=== PATIENT | male | born 1980 | race Caucasian/White ===

== ENCOUNTER 2021-07-09 14:08 | Emergency (ER) | payer OTHER, SELFPAY ==
--- NOTE | ~2021-07-09 | XR_ITS ---
EXAMINATION: XR hip LT 2V w AP pelvis INDICATION: Left hip pain after fall TECHNIQUE: AP view of the pelvis and two views of the left hip are obtained. COMPARISON: None available FINDINGS: There is no fracture. There is moderate osteoarthritis of the left hip and mild osteoarthri tis of the right hip. The soft tissues are unremarkable. IMPRESSION: 1. No acute osseous abnormality. Reviewed, dictated and finalized at location F. [employer] SUPERVISOR
[2021-07-09 14:27] VITALS: BP 142/85; PULSE 84; RESP 22; TEMP 36.7; O2SAT 97
--- NOTE | 2021-07-09 15:07 | ED.GENADULT ---
HPI - General Adult General Chief complaint: Extremity Injury, Lower Stated complaint: Fell Injury/Hip Time Seen by Provider: 07/09/21 14:50 Source: patient, family, RN notes reviewed and old records reviewed Mode of arrival: ambulatory Limitations: no limitations History of Present Illness HPI narrative: 40 year old male who presents to express care with complaints of falling down 4-5 wooden steps on the 02 of July falling onto his left forearm and left hip. Patient states that his hip seems to have crepitus in it. Patient states that he has seen AMERICA Estrella with Dr Crenshaw office and was told that he has osteoarthritis in his left hip and he has to lose more weight and quit smoking before they will fix my hip. 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 He states that he has taken Tylenol and Aleve today but nothing much helps. complaint: fell onto left hip and forearm on July 02 Onset (ago): day(s) (fell on July 02) Location: lower extremity (left hip) Radiation: non-radiation Severity scale (1-10): 6 Quality: aching Pain Consistency: constant Relieving factors: none Exacerbating factors: movement Treatments prior to arrival: NSAID Related Data Home Medications Medication Instructions Recorded Confirmed atorvastatin 10 mg PO DAILY 07/09/21 07/09/21 budesonide-formoterol [Symbicort] 2 puff INHALATION Q12H 07/09/21 07/09/21 fluoxetine 10 mg PO DAILY 07/09/21 07/09/21 fluticasone furoate-vilanterol 1 inh INHALATION Q24H 07/09/21 07/09/21 [Breo Ellipta] folic acid 1 mg PO DAILY 07/09/21 07/09/21 gabapentin 300 mg PO DAILY 07/09/21 07/09/21 losartan-hydrochlorothiazide 1 tablet PO DAILY 07/09/21 07/09/21 metformin 500 mg PO DAILY 07/09/21 07/09/21 quetiapine [Seroquel] 25 mg PO HS 07/09/21 07/09/21 sitagliptin [Januvia] 100 mg PO DAILY 07/09/21 07/09/21 topiramate 25 mg PO DAILY 07/09/21 07/09/21 tramadol 07/09/21 Allergies Allergy/AdvReac Type Severity Reaction Status Date / Time Penicillins Allergy Unknown Hives Verified 07/09/21 14:32 Review of Systems Review of Systems: CONSTITUTIONAL: Denies fever, chills, or sweats. EYES: Denies visual changes, redness, or discharge. ENT: Denies rhinorrhea, congestion, sore throat, or otalgia. CARDIOVASCULAR: Denies chest pain, palpitations, or edema. RESPIRATORY: Denies cough or dyspnea. GASTROINTESTINAL: Denies abdominal pain, nausea, vomiting, or diarrhea. GENITOURINARY: Denies dysuria or hematuria. SKIN: Denies rash or itching. MUSCULOSKELETAL: Denies back pain,left hip joint pain, or myalgia. NEUROLOGIC: Denies headache, numbness, or weakness. PSYCHIATRIC: Denies anxiety or depression. All systems reviewed & are unremarkable except as noted in HPI and below PMFSH Past Medical History Medical History (Updated 07/09/21 @ 19:59 by Noelle Rubi NP) COPD (chronic obstructive pulmonary disease) Diabetes Empyema lung Hyperlipidemia Hypertension Pneumonia Surgical History Surgical History (Updated 07/09/21 @ 19:57 by Noelle Rubi NP) H/O arthroscopy of knee History of chest tube placement empyema with chest tube Social History Social History (Updated 07/09/21 @ 19:57 by Noelle Rubi NP) Smoking packs per day: 0.5 Smoking cigarettes per day: 10.0 Smoking status: Current every day smoker Tobacco type: cigarettes Alcohol intake: unknown Substance use: unknown Living arrangements: with family Gender identity (if verbalized by the patient): Male Comments At time of signature, agree with nursing past medical, surgical, social and family history. There is no relevant family history pertinent to the presenting complaint Exam Narrative: GENERAL: Well-appearing, well-nourished,obese and in no acute distress. HEAD: Normocephalic, atraumatic. EYES: PERRLA and EOMI. ENT: Nares clear, no rhinorrhea or epistaxis. Mucous membranes moist.TM's good light reflex, th
--- NOTE | 2021-07-09 15:24 | ED.LOWEXIN ---
HPI - Extremity Injury (Lower) General Chief Complaint: Extremity Injury, Lower Stated Complaint: Fell Injury/Hip Time Seen by Provider: 07/09/21 14:50 Source: patient, family, RN notes reviewed and old records reviewed Mode of arrival: ambulatory Limitations: no limitations History of Present Illness HPI Narrative: 40 year old male accompanied by left hip pain MD complaint: hip injury Onset (ago): week(s) Injury: Left: hip Type of Injury: blunt Place: home Relieving factors: NSAID Related Data Home Medications Medication Instructions Recorded Confirmed atorvastatin 10 mg PO DAILY 07/09/21 07/09/21 budesonide-formoterol [Symbicort] 2 puff INHALATION Q12H 07/09/21 07/09/21 fluoxetine 10 mg PO DAILY 07/09/21 07/09/21 fluticasone furoate-vilanterol 1 inh INHALATION Q24H 07/09/21 07/09/21 [Breo Ellipta] folic acid 1 mg PO DAILY 07/09/21 07/09/21 gabapentin 300 mg PO DAILY 07/09/21 07/09/21 losartan-hydrochlorothiazide 1 tablet PO DAILY 07/09/21 07/09/21 metformin 500 mg PO DAILY 07/09/21 07/09/21 quetiapine [Seroquel] 25 mg PO HS 07/09/21 07/09/21 sitagliptin [Januvia] 100 mg PO DAILY 07/09/21 07/09/21 topiramate 25 mg PO DAILY 07/09/21 07/09/21 tramadol 07/09/21 Allergies Allergy/AdvReac Type Severity Reaction Status Date / Time Penicillins Allergy Unknown Hives Verified 07/09/21 14:32 Course Vital Signs Vital signs: Vital Signs Temperature 36.7 C 07/09/21 14:27 Pulse Rate 84 07/09/21 14:27 Respiratory Rate 22 H 07/09/21 14:27 Blood Pressure 142/85 H 07/09/21 14:27 Pulse Oximetry 97 07/09/21 14:27 Temperature 36.7 C 07/09/21 14:27 Pulse Rate 84 07/09/21 14:27 Respiratory Rate 22 H 07/09/21 14:27 Blood Pressure 142/85 H 07/09/21 14:27 Pulse Oximetry 97 07/09/21 14:27 MDM - Extremity Injury (Lower) Imaging Data Attestation: I personally reviewed and interpreted this imaging study as follows: Radiologist's impression: [facility] [address] [address], [place] [phone] XRay ReportSigned Patient: Moses Mtz RDOB: 1980MR#: [id number]/Sex: 40 / MAcct:[id number]: EXPBETH ADM Date: 07/09/21Attending Dr: Ordering Physician: Noelle Rubi APN Date of Service: 07/09/21 Procedure(s): XR hip LT 2V w AP pelvis Accession Number(s): [id number] cc: Noelle Rubi APN~ EXAMINATION: XR hip LT 2V w AP pelvis INDICATION: Left hip pain after fall TECHNIQUE: AP view of the pelvis and two views of the left hip are obtained. COMPARISON: None available FINDINGS: There is no fracture. There is moderate osteoarthritis of the left hip and mild osteoarthritis of the right hip. The soft tissues are unremarkable. IMPRESSION: 1. No acute osseous abnormality. Reviewed, dictated and finalized at location F. [employer]ANG[employer] SPECIALIST Dictated By: Yonathan Pratt MD 07/09/21 5309 Signed By: <Electronically signed by Yonathan Pratt MD in OV> Critical Care Time Critical Care Time Critical Care Time: No Discharge Plan Discharge Clinical Impression: Acute pain of left hip, Osteoarthritis of left hip Patient Disposition: Home, Self-Care Condition: Stable Additional Instructions: Tylenol for lesser pain Ibuprofen regularly for the next 2-3 days for the inflammation Use the medication as provided for severe pain--caution each tablet contains 325 mg of Tylenol--the maximum dose of Tylenol is 4000 mg in 24 hours. This medication may cause constipation consider starting a laxative at this time Follow-up with orthopedic surgeon as scheduled Stop smoking Lose weight as previously instructed Follow-up with PCP if further problems or concerns Ice to the area 20-30 minutes 4-6 times a day Elevate above heart If your symptoms persist, change or worsen significantly before you can contact your personal physician then please, without d
== END 2021-07-09 15:38 | disposition home or self-care (01) ==
PROVIDERS: Emergency Provider Registered Nurse
DX: M25.552 Pain in left hip (principal); M16.12 Unilateral primary osteoarthritis, left hip; F17.210 Nicotine dependence, cigarettes, uncomplicated; J44.9 Chronic obstructive pulmonary disease, unspecified; E11.9 Type 2 diabetes mellitus without complications; E78.5 Hyperlipidemia, unspecified; I10 Essential (primary) hypertension
CPT/HCPCS: 73502; 99203; G0463

== ENCOUNTER 2024-07-12 19:43 | Emergency (ER) | payer MEDICARE, SELFPAY ==
--- OUTSIDE RECORDS SUMMARY | 2024-07-12 19:45 | XMS_ITS ---
Author Organization [facility] Address [address] [place] [address] Care Team Providers Care Obiee Report Developer Name Role Phone Petrona Brett Primary Care Provider Gilson Aguirre [phone] REASON FOR VISIT 1 Month Psych F/U & Med Refill Medications Medication SIG (Take, Route, Frequency, Duration) Notes Start Date End Date Status Topiramate 100 MG 1 tablet Orally Twic e a day for 30 days Active DULoxetine HCl 60 MG 1 capsule in am Ora lly Once a day for 30 days Active DULoxetine HCl 30 MG 1 capsule in PM Ora lly Once a day for 30 days Active Famotidine 20 MG 1 tablet Orally Twic e a day Active ProAir HFA 108 (90 Base) MCG/ACT 2 puff as needed Inhalation every 6 hrs Active OneTouch Verio - USE TO TEST BLOOD MONTELONGO GAR ONCE DAILY for 50 Active Triazolam 0.25 MG 1 tablet at bedtime Orally Once a day. for 30 days As needed for insomnia 11/05/2023 Active ARIPiprazole 10 MG 1 tablet Orally Once a day for 30 days Active lamoTRIgine 100 MG 1 tablet Orally Once a day for 30 days Active Aleve 220 MG 1 tablet with food o r milk as needed Orally every 12 hrs Not-Taking Symbicort 80-4.5 MCG/ACT 2 puffs Inhalat ion Once a day Active Losartan Potassium-HCTZ 50-12.5 MG 1 tablet Orally Once a day for 30 day(s) Active Alcohol Pads 70 % as directed external ly once daily 12/12/2020 Active TEST STRIPS, FORMULARY ANY DIRECTED VIA METER DIRECTED for 30 12/12/2020 Active Lancet Device - as directed external ly once daily 12/12/2020 Active Lipitor 10 MG 1 tablet Orally Once a day for 30 day(s) Active Thiamine HCl 100 MG 1 tablet Orally Once a day for 30 day(s) Active Folic Acid 1 MG 1 tablet Orally Once a day for 30 day(s) Active metFORMIN HCl 500 MG 1 tablet with a eav l Orally Once a day for 30 day(s) Active Nicotine 21 MG/24HR 1 patch to skin Transdermal Once a day for 30 day(s) Active Meloxicam 15 MG 1 tablet Orally Once a day for 30 day(s) Active Social History Sex Assigned At : Social History Observation Description Sex Assigned At Male Encounters Encounter Location Date Provider Diagnosis [address] [address] 12/03/2023 Gilson Aguirre Plan Of Treatment No Information Progress Notes * David MTZOB:1980 (44 yo M)Acc No.[id number]:12/03/2023 UNLOCKED PROGRESS NOTE Patient: Moses LYNNE Provider: Fuentes Aguirre, DNP, PMHNP-BC :1980 A ge:43 Y S ex:Male Date:12/03/2023 Address:[address] [place], [place] [id number] Pcp:Brett Russ Subjective: * Chief Complaints: * 1 . 1 Month Psych F/U & Med Refill. * Medical History: * Medications: T aking Famotidine 20 MG Tablet 1 tablet Orally Twice a day , Taking ProAir HFA 108 (90 Base) MCG/ACT Aerosol Solution 2 puff as needed Inhalation every 6 hrs , Taking Meloxicam 15 MG Tablet 1 tablet Orally Once a day , Taking Thiamine HCl 100 MG Tablet 1 tablet Orally Once a day , Taking Folic Acid 1 MG Tablet 1 tablet Orally Once a day , Taking metFORMIN HCl 500 MG Tablet 1 tablet with a meal Orally Once a day , Taking Nicotine 21 MG/24HR Patch 24 Hour 1 patch to skin Transdermal Once a day , Taking Lipitor 10 MG Tablet 1 tablet Orally Once a day , Taking Symbicort 80-4.5 MCG/ACT Aerosol 2 puffs Inhalation Once a day , Taking Losartan Potassium-HCTZ 50-12.5 MG Tablet 1 tablet Orally Once a day , Taking Alcohol Pads 70 % Pad as directed externally once daily , Taking Lancet Device - Miscellaneous as directed externally once daily , Taking TEST STRIPS, FORMULARY ANY MEDICAL EQUIPMENT DIRECTED VIA METER DIRECTED , Taking OneTouch Verio - Strip USE TO TEST BLOOD SUGAR ONCE DAILY , Taking Triazolam 0.25 MG Tablet 1 tablet at bedtime Orally Once a day. As needed for insomnia, Taking ARIPiprazole 10 MG Tablet 1 tablet Orally Once a day , Taking lamoTRIgine 100 MG Tablet 1 tablet Orally Once a day , Taking Topiramate 100 MG Tablet 1 tablet Orally Twice a day , Taking DULoxetine HCl 60 MG Capsule Delayed Release Particles 1 capsule in am Orally Once a day , Taking DULoxetine HCl 30 MG Capsule Delayed Release Particles 1 capsule in PM Orally Once a day , Not-Taking Aleve 220 MG Tablet 1 tablet with food or milk as needed Orally every 12 hrs Objective: * Vitals: Assessment: Plan: * Treatment: * * Electronic signature of Bobby Aguirre , LEONORA, [phone] on 2024 at 07:45 PM [employer] SUPERVISOR Sign off status: Pending * Provider: Fuentes Aguirre DNP, PMP- Date: 0 12/03/2023 Generated for Sarthak john/Froylan/Jennyfer on: 0 2024 07:45 PM [employer]VERBERAT[employer] F[employer]NA[employer] SUPERVISOR
--- OUTSIDE RECORDS SUMMARY | 2024-07-12 19:45 | XMS_ITS ---
Author Organization [facility] Address [address] [place] [address] Care Team Providers Care Transportation Inspector Name Role Phone Petrona Brett Primary Care Provider Gilson Aguirre Unavailable [phone] Allergies Allergen (clinical drug ingredient) Drug/Non Drug Allergy documented on EMR Reaction Allergy Type Onset Date Status Penicillin Unknown Drug Allergy Active REASON FOR VISIT 1 Month Psych F/U & Med Refill Medications Medication SIG (Take, Route, Frequency, Duration) Notes Start Date End Date Status Triazolam 0.25 MG 1 tablet at bedtime Orally Once a day. for 30 days As needed for insomnia 10/08/2023 Active Lancet Device - as directed external ly once daily 12/12/2020 Active Aleve 220 MG 1 tablet with food o r milk as needed Orally every 12 hrs Not-Taking TEST STRIPS, FORMULARY ANY DIRECTED VIA METER DIRECTED for 30 12/12/2020 Active OneTouch Verio - USE TO TEST BLOOD MONTELONGO GAR ONCE DAILY for 50 Active Losartan Potassium-HCTZ 50-12.5 MG 1 tablet Orally Once a day for 30 day(s) Active Symbicort 80-4.5 MCG/ACT 2 puffs Inhalat ion Once a day Active Alcohol Pads 70 % as directed external ly once daily 12/12/2020 Active Nicotine 21 MG/24HR 1 patch to skin Transdermal Once a day for 30 day(s) Active Lipitor 10 MG 1 tablet Orally Once a day for 30 day(s) Active ProAir HFA 108 (90 Base) MCG/ACT 2 puff as needed Inhalation every 6 hrs Active Meloxicam 15 MG 1 tablet Orally Once a day for 30 day(s) Active Thiamine HCl 100 MG 1 tablet Orally Once a day for 30 day(s) Active Folic Acid 1 MG 1 tablet Orally Once a day for 30 day(s) Active metFORMIN HCl 500 MG 1 tablet with a eva l Orally Once a day for 30 day(s) Active lamoTRIgine 100 MG 1 tablet Orally Once a day for 30 days Active Topiramate 100 MG 1 tablet Orally Twic e a day for 30 days Active Famotidine 20 MG 1 tablet Orally Twic e a day Active DULoxetine HCl 60 MG 1 capsule in am Ora lly Once a day for 30 days Active DULoxetine HCl 30 MG 1 capsule in PM Ora lly Once a day for 30 days Active ARIPiprazole 10 MG 1 tablet Orally Once a day for 30 days Active Social History Sex Assigned At : Social History Observation Description Sex Assigned At Male Encounters Encounter Location Date Provider Diagnosis [address] [id number] 10/08/2023 Gilson Aguirre Bipolar affective disorder, remission status unspecified F31.9 and Insomnia disorder G47.00 Assessments Encounter Date Diagnosis (ICD Code) Assessment Notes Treatment Notes Treatment Clinical Notes Section Notes 10/08/2023 Bipolar affective disorder, remission status unspecified (ICD-10 - F31.9) Client doing well, no treatment plan changes needed. 10/08/2023 Insomnia disorder (ICD-10 - G47.00) Client doing well, no treatment plan changes needed. 10/08/2023 Other [place] with [place] issues noted. Discussed sleep hygiene and caffeine intake with encouragement to limit electronic devices an hour before bed and to limit caffeine after 3:00pm. Exercise benefits for mood and health discussed. Psychoeducation regarding psychiatric illness provided. Client was educated about risks and benefits of medication, alternatives to medication, off label uses of medication, suicidal ideation with SSRIs, self-administration and compliance with medication along with how to safely store medication. Verbal informed consent obtained. Client agrees to return sooner if symptoms worsen or if suicidal or homicidal ideations occur. Client has the phone number to the 24-hour crisis line at [facility]. Questions addressed. Client verbalized understanding of all information and is agreeable to treatment plan. Client doing well, no treatment plan changes needed. Plan Of Treatment Medication Medication Name Sig Start Date Stop Date Notes Triazolam 0.25 MG 1 tablet at bedtime Orally Once a day. for 30 days 10/08/2023 lamoTRIgine 100 MG 1 tablet Orally Once a day for 30 days Topiramate 100 MG 1 tablet Orally Twic e a day for 30 days DULoxetine HCl 60 MG 1 capsule in am Ora lly Once a day for 30 days DULoxetine HCl 30 MG 1 capsule in PM Ora lly Once a day for 30 days ARIPiprazole 10 MG 1 tablet Orally Once a day for 30 days Treatment Notes Assessment Notes [place] issues noted. Discussed sleep hygiene and caffeine intake with encouragement to limit electronic devices an hour before bed and to limit caffeine after 3:00pm. Exercise benefits for mood and health discussed. Psychoeducation regarding psychiatric illness provided. Client was educated about risks and benefits of medication, alternatives to medication, off label uses of medication, suicidal ideation with SSRIs, self-administration and compliance with medication along with how to safely store medication. Verbal informed consent obtained. Client agrees to return sooner if symptoms worsen or if suicidal or homicidal ideations occur. Client has the phone number to the 24-hour crisis line at [facility]. Questions addressed. Client verbalized understanding of all information and is agreeable to treatment plan. Next Appt Details Follow Up: 4 Weeks, Reason: Medication management - can be telehealth appt. Progress Notes * David MTZOB:1980 (43 yo M)Acc No.[id number]:10/08/2023 Patient: Moses LYNNE Provider: Fuentes Aguirre, TEENA, PMHNP- :1980 A ge:43 Y S ex:Male Date:10/08/2023 Address:[address] [place], [place] [id number] Pcp:Brett Russ Subjective: * Chief Complaints: * 1 Month Psych F/U & Med Refill * HPI: D epression Screening: PHQ-9 L ittle interest or pleasure in doing things N ot at all, F eeling down, depressed, or hopeless N ot at all, T rouble falling or staying asleep, or sleeping too much S everal days, F eeling tired or having little energy S everal days, P oor appetite or overeating N ot at all, F eeling bad about yourself or that you are a failure, or have let yourself or your family down N ot at all, T rouble concentrating on things, such as reading the newspaper or watching television S ever, M oving or speaking so slowly that other people could have noticed; or the opposite, being so fidgety or restless that you have been moving around a lot more than usual S everal days, T houghts that you would be better off or of hurting yourself in some way N ot at all, T otal Score 4 , I nterpretation M inimal Depression. I ntervention D epression Screening Findings P ositive, F ollow-Up for Depression N o Referral necessary, patient involved in behavioral health treatment .. C SSRS Interpretation and Follow Up Plan: CSSRS Interpretation and Follow Up Plan. CSSRS Interpretation and Follow Up Plan M oderate or High risk requires selection of a follow up plan C SSRS No/Low: intervention not needed at this time.? S creening: [place] Suicide Severity Rating Scale (LF) D o you want to initiate with S creener form, 1 . Wish to be : Have you wished you were or wished you could go to sleep and not wake up? N o, 2 . Suicidal Thoughts: Have you actually had any thoughts of killing yourself? N o, 6 . Suicide Behaviour: Have you ever done anything,started to do anything, or prepared to end your life? N o, I nterpretation: L ow Risk. C onstitutional: Session conducted telephonically with client's consent. I've been under the weather. This month I have gotten started with social security. Now the thing is I have to find all new doctors for my hip. Its like starting all over again for medicare. I lost medicaid totally because I'm making too much money on disability. So its really frustrating. I think that is the only thing weighing on me. Other than that I'm doing pretty good. I got my daughter a car and I'm doing pretty good with the day to day.? I've been sleeping better and that is helping. Is at 240 pounds now and maintaining weight loss. He has a new puppy, jemma ray. 12 months old. Named him, Vish. Cigarette/Vape/ETOH: Has quit smoking and quit drinking alcohol. Therapy: not currently, did do assessment and then has not set up appointment. Encouraged to do so. Depression: Good Anxiety: Denies Sleep: Was fair with Ambien then stopped working even at 10 mg, CR ambien denied by insurance. Poor without. Had sleep study one year ago and was dx with sleep apnea. Sleeps with full mask CPAP. Sees neurologist for this. Seroquel discontinued due to weight gain. SI/HI: denies Hallucinations/paranoia: denies Past Psychotropic medications: Prozac 10 mg q am started 12/08/20 increased to 20 mg in fall 2020, Seroquel 25 mg - helpful for sleep, higher mood stabilizing doses made mood worse. PSYCHOSOCIAL/FAMILY HISTORY: Family history or mental illness: Half-sister has mental illness Family history of suicide attempts/completions: half-sister has tried several times Family history of drug/alcohol use: geed-lxgfhi-ywocpf alcohol. Raised by: parents when he was 6 yo, father raised him. Father when client was 18 yo. Mother still living. : none Children: one 13 yo daughter who lives between his mother and himself. Education: HS Diploma. Was bullied during school years. Job: off work at current time, will be returning to [employer] in [place]. * ROS: P sych ROS: Constitutional D enies. E yes D enies. E ars/Nose/Mouth/Throat D enies. R espiratory R eports, H x of empyema, smoker. A llergic/Immunologic D enies. C ardiovascular D enies. G I D enies. G U D enies. M usculoskeletal R eports, j oint pain , chronic pain,arthritis. N eurological D enies. I ntegumentary D enies. E ndocrine R eports, Alison M, metabolic syndrome . H ematological/Lymphatic D enies. * PSYCH ROS2: Elevated mood symptoms D enies. m ood swings D enies. T houghts of self harm D enies. D enies H omicidal thoughts. I nattention?Denies. D isruptive behavior D enies. O bsessive behavior D enies. D enies Anxiety. D enies A uditory/visual hallucinations. D enies D elusions. A dmits?Depressed mood, w hich is mild. A dmits D ifficulty sleeping. D enies E ating disorder. L oss of appetite A dmits. A dmits S tressors, f inancial, relationship , health. D enies S ubstance abuse. D enies S uicidal thoughts. ? * Medical History: * Surgical History: ( R) Knee 2010(L) Knee 2011(R) Lung for empyema 2014 * Hospitalization/Major Diagno stic Procedure: D enies Past Hospitalization * Family History: F ather: , polio. M other: alive. 3 brother(s) , 2 sister(s) . 1 daughter(s) . . * Social History: P [facility] Social History: A lcohol Use A lcohol Use Frequency: Has stopped drinking alcohol.. * Medications: T akingFamotidine 20 MG Tablet 1 tablet Orally Twice a day ProAir HFA 108 (90 Base) MCG/ACT Aerosol Solution 2 puff as needed Inhalation every 6 hrs Meloxicam 15 MG Tablet 1 tablet Orally Once a day Thiamine HCl 100 MG Tablet 1 tablet Orally Once a day Folic Acid 1 MG Tablet 1 tablet Orally Once a day metFORMIN HCl 500 MG Tablet 1 tablet with a meal Orally Once a day Nicotine 21 MG/24HR Patch 24 Hour 1 patch to skin Transdermal Once a day Lipitor 10 MG Tablet 1 tablet Orally Once a day Symbicort 80-4.5 MCG/ACT Aerosol 2 puffs Inhalation Once a day Losartan Potassium-HCTZ 50- 12.5 MG Tablet 1 tablet Orally Once a day Alcohol Pads 70 % Pad as directed externally once daily Lancet Device - Miscellaneous as directed externally once daily TEST STRIPS, FORMULARY ANY MEDICAL EQUIPMENT DIRECTED VIA METER DIRECTED OneTouch Verio - Strip USE TO TEST BLOOD SUGAR ONCE DAILY ARIPiprazole 10 MG Tablet 1 tablet Orally Once a day lamoTRIgine 100 MG Tablet 1 tablet Orally Once a day Topiramate 100 MG Tablet 1 tablet Orally Twice a day DULoxetine HCl 30 MG Capsule Delayed Release Particles 1 capsule in PM Orally Once a day DULoxetine HCl 60 MG Capsule Delayed Release Particles 1 capsule in am Orally Once a day Triazolam 0.25 MG Tablet 1 tablet at bedtime Orally Once a day. As needed for insomnia, Notes to Pharmacist: Okay to fill early if insurance allows due to waiting on PA approval.Taking Famotidine 20 MG Tablet 1 tablet Orally Twice a day Taking ProAir HFA 108 (90 Base) MCG/ACT Aerosol Solution 2 puff as needed Inhalation every 6 hrs Taking Meloxicam 15 MG Tablet 1 tablet Orally Once a day Taking Thiamine HCl 100 MG Tablet 1 tablet Orally Once a day Taking Folic Acid 1 MG Tablet 1 tablet Orally Once a day Taking metFORMIN HCl 500 MG Tablet 1 tablet with a meal Orally Once a day Taking Nicotine 21 MG/24HR Patch 24 Hour 1 patch to skin Transdermal Once a day Taking Lipitor 10 MG Tablet 1 tablet Orally Once a day Taking Symbicort 80-4.5 MCG/ACT Aerosol 2 puffs Inhalation Once a day Taking Losartan Potassium-HCTZ 50-12.5 MG Tablet 1 tablet Orally Once a day Taking Alcohol Pads 70 % Pad as directed externally once daily Taking Lancet Device - Miscellaneous as directed externally once daily Taking TEST STRIPS, FORMULARY ANY MEDICAL EQUIPMENT DIRECTED VIA METER DIRECTED Taking OneTouch Verio - Strip USE TO TEST BLOOD SUGAR ONCE DAILY Taking ARIPiprazole 10 MG Tablet 1 tablet Orally Once a day Taking lamoTRIgine 100 MG Tablet 1 tablet Orally Once a day Taking Topiramate 100 MG Tablet 1 tablet Orally Twice a day Taking DULoxetine HCl 30 MG Capsule Delayed Release Particles 1 capsule in PM Orally Once a day Taking DULoxetine HCl 60 MG Capsule Delayed Release Particles 1 capsule in am Orally Once a day Taking Triazolam 0.25 MG Tablet 1 tablet at bedtime Orally Once a day. As needed for insomnia, Notes to Pharmacist: Okay to fill early if insurance allows due to waiting on PA approval.Not-TakingAleve 220 MG Tablet 1 tablet with food or milk as needed Orally every 12 hrs Not-Taking Aleve 220 MG Tablet 1 tablet with food or milk as needed Orally every 12 hrs * Allergies: P enicillin Objective: * Vitals: * Examination: P sychiatry: APPEARANCE: BORIS due to telephone encounter. ATTENTION: good. ORIENTATION: yes, person, place and time. ATTITUDE: cooperative, pleasant. AFFECT: appropriate, full range. MOOD: e uthymic. SPEECH: clear, normal/R/V/R. PSYCHOMOTOR ACTIVITY: within normal range per report.? ABNORMAL BODY MOVEMENTS: none per report. CURRENT HOMICIDALITY: none. CURRENT SUICIDALITY: not presently. THOUGHT PROCESS: intact. THOUGHT CONTENT: unremarkable. PERCEPTUAL DISORDERS: no perceptual disorder noted. INSIGHT: g ood-fair. JUDGEMENT: good, fair. Assessment: * Assessment: 1. B ipolar affective disorder, remission status unspecified - F31.9 (Primary) 2 . I nsomnia disorder - G47.00 Client doing well, no treatm ent plan changes needed. Plan: * Treatment: 2. I nsomnia disorder Refill Triazolam Tablet, 0.25 MG, 1 tablet at bedtime, Orally, Once a day. As needed for insomnia, 30 days, 30, Refills 1. 3. O thers Notes:[place] issues noted. Discussed sleep hygiene and caffeineintake with encouragement to limit electronic devices an hour before bed and tolimit caffeine after 3:00pm. Exercisebenefits for mood and health discussed.Psychoeducation regarding psychiatric illness provided. Client was educated about risks and benefitsof medication, alternatives to medication, off label uses of medication,suicidal ideation with SSRIs, self-administration and compliance withmedication along with how to safely store medication. Verbal informed consent obtained. Clientagrees to return sooner if symptoms worsen or if suicidal or homicidalideations occur. Client has the phonenumber to the 24-hour crisis line at [facility].Questions addressed. Clientverbalized understanding of all information and is agreeable to treatment plan. * Procedure Codes: * Follow Up: 4 Weeks (Reason: Medication management - can be telehealth appt.) * * Sign off status: Completed true * Provider: Fuentes Aguirre DNP, PMHNP- Date: 0 10/08/2023 Generated for Sarthak john/Froylan/Jennyfer on: 0 2024 07:45 PM DRAWING CHECKER History and Physical Notes * HPI (History of Present Illness) Category Sub-Category Detail Notes Category Not es Depression Screening PHQ-9 Little inte rest or pleasure in doing things: Not at all Feeling down, depressed, or hopeless: No t at all Trouble falling or staying asleep, or sl eeping too much: Several days Feeling tired or having little energy: S everal days Poor appetite or overeating: Not at all Feeling bad about yourself o r that you are a failure, or have let yourself or your family down: Not at all Trouble concentrating on thi ngs, such as reading the newspaper or watching television: Several days Moving or speaking so slowly that other people could have noticed; or the opposite, being so fidgety or restless that you have been moving around a lot more than usual: Several days Thoughts that you would be b homer off or of hurting yourself in some way: Not at all Total Score: 4 Interpretation: Minimal Depression Intervention Depression Screening Findings: P ositive Follow-Up for Depression: No Referral necessary, patient involved in behavioral health treatment . Screening [place] Suicide Sev erity Rating Scale (LF) Do you want to initiate with: Screener form 1. Wish to be : Have you wished you were or wished you could go to sleep and not wake up?: No 2. Suicidal Thoughts: Have you actually had any thoughts of killing yourself?: No 6. Suicide Behavior Question: Have you ever done anything,started to do anything, or prepared to end your life?: No Interpretation:: Low Risk Do Not Use CSSRS Interpretation and Follow Up Plan CSSRS Interpretation and Follow Up Plan Moderate or High risk requires selection of a follow up plan: CSSRS No/Low: intervention not needed at this time Examination Category Sub-Category Detail Notes Category Not es Psychiatry APPEARANCE: BORIS due to telephone encount er ATTITUDE: cooperative, pleasan t PSYCHOMOTOR ACTIVITY: within normal rang e per report ABNORMAL BODY MOVEMENTS: none per report ATTENTION: good ORIENTATION: yes, person, place a nd time AFFECT: appropriate, full ra nge MOOD: euthymic SPEECH: clear, normal/R/V/R INSIGHT: good-fair JUDGEMENT: good, fair THOUGHT PROCESS: intact THOUGHT CONTENT: unremarkable PERCEPTUAL DISORDERS: no perceptual diso rder noted CURRENT SUICIDALITY: not presently CURRENT HOMICIDALITY: none
--- OUTSIDE RECORDS SUMMARY | 2024-07-12 19:45 | XMS_ITS | Encounter Summary ---
Author Organization [facility] Healthcare Address [address] [place] [address] Care Team Providers Care Web Specialist Name Role Phone Miscellaneous, Not In File Unavailable Unava ilable Fabrizio Boone MD Primary Care Provider Leola Celaya MD Unavailable Brett Russ MD Unavailable [phone] Reason for Visit * Reason Onset Date Comments Scheduling Appointments 08/17/2021 Confirme d injection Encounter Details Date Type Department Care Team (Late st Contact Info) Description 08/17/2021 Telephone [facility] [address] [place] [address] Tiki Stark, Scheduling Appointments (Confirmed injection) Social History Tobacco Use Types Packs/Day Years Used Date Smoking Tobacco: Every Day Cigarettes 1.5 33.1 Started: 05/27/1991 Smokeless Tobacco: Never Alcohol Use Standard Drinks/Week Comments Yes 0 (1 standard drink = 0.6 oz pur e alcohol) AUDIT-C Answer Date Recorded Q1: How often do you have a drink containing alcohol? 4 or more times a week 10/14/2020 Q2: How many drinks containi ng alcohol do you have on a typical day when you are drinking? 10 or more Q3: How often do you have si x or more drinks on one occasion? Daily or almost daily 10/14/2020 PHQ-2 Answer Date Recorded PHQ-2 Total Score (If total score is 3 or more points, staff should administer the PHQ-9) 0 07/25/2021 Sex and Gender Information Value Date Recorded Sex Assigned at Not on file Legal Sex Male 8:44 AM [employer] Gender Identity Not on file Sexual Orientation Straight 11/08/2020 6: 40 PM CDT documented as of this encounter Plan of Treatment Not on file documented as of this encounter Goals Goal Patient Goal Type Associated Problems Recent Progress Patient-Stated? Author sobriety from alcohol General Yes Rupal Rojas documented as of this encounter Visit Diagnoses Not on filedocumented in this encounter Additional Health Concerns Infection Onset Date Last Indicated Resolved Time COVID: Suspected 05/07/2022 05/07/2022 05/07/2022 5:02 PM [employer] documented as of this encounter Care Teams Web Specialist Relationship Specialty Start Date End Date Fabrizio Boone MD PCP - General Family Medicine 11/09/20 Miscellaneous, Not In File 10/17/20 Leola Celaya MD Consulting Physician Neurology 06/14/22 Brett Russ MD [address] [place] [address] Referring Physician Internal Medicine 07/01/23 documented as of this encounter
--- OUTSIDE RECORDS SUMMARY | 2024-07-12 19:45 | XMS_ITS ---
Author Organization [facility] Address [address] [place] [address] Care Team Providers Care Doctor Of Nurse Anesthesia Name Role Phone Petrona Brett Primary Care Provider Gilson Aguirre Unavailable [phone] Allergies Allergen (clinical drug ingredient) Drug/Non Drug Allergy documented on EMR Reaction Allergy Type Onset Date Status Penicillin Unknown Drug Allergy Active REASON FOR VISIT 1 Month Psych F/U & Med Refill Medications Medication SIG (Take, Route, Frequency, Duration) Notes Start Date End Date Status TEST STRIPS, FORMULARY ANY DIRECTED VIA METER DIRECTED for 30 12/12/2020 Active Lancet Device - as directed external ly once daily 12/12/2020 Active DULoxetine HCl 30 MG 1 capsule in PM Ora lly Once a day for 30 days Active OneTouch Verio - USE TO TEST BLOOD MONTELONGO GAR ONCE DAILY for 50 Active Aleve 220 MG 1 tablet with food o r milk as needed Orally every 12 hrs Not-Taking Alcohol Pads 70 % as directed external ly once daily 12/12/2020 Active Losartan Potassium-HCTZ 50-12.5 MG 1 tablet Orally Once a day for 30 day(s) Active Symbicort 80-4.5 MCG/ACT 2 puffs Inhalat ion Once a day Active Lipitor 10 MG 1 tablet Orally Once a day for 30 day(s) Active Nicotine 21 MG/24HR 1 patch to skin Transdermal Once a day for 30 day(s) Active ProAir HFA 108 (90 Base) MCG/ACT 2 puff as needed Inhalation every 6 hrs Active Folic Acid 1 MG 1 tablet Orally Once a day for 30 day(s) Active Thiamine HCl 100 MG 1 tablet Orally Once a day for 30 day(s) Active Meloxicam 15 MG 1 tablet Orally Once a day for 30 day(s) Active metFORMIN HCl 500 MG 1 tablet with a eva l Orally Once a day for 30 day(s) Active Famotidine 20 MG 1 tablet Orally Twic e a day Active lamoTRIgine 100 MG 1 tablet Orally Once a day for 30 days Active ARIPiprazole 10 MG 1 tablet Orally Once a day for 30 days Active DULoxetine HCl 60 MG 1 capsule in am Ora lly Once a day for 30 days Active Topiramate 100 MG 1 tablet Orally Twic e a day for 30 days Active Triazolam 0.25 MG 1 tablet at bedtime Orally Once a day. for 30 days As needed for insomnia 11/05/2023 Active Social History Sex Assigned At : Social History Observation Description Sex Assigned At Male Encounters Encounter Location Date Provider Diagnosis [address] [id number] 11/05/2023 Gilson Aguirre Bipolar affective disorder, remission status unspecified F31.9 and Insomnia disorder G47.00 Assessments Encounter Date Diagnosis (ICD Code) Assessment Notes Treatment Notes Treatment Clinical Notes Section Notes 11/05/2023 Bipolar affective disorder, remission status unspecified (ICD-10 - F31.9) Client doing well, no treatment plan changes needed. 11/05/2023 Insomnia disorder (ICD-10 - G47.00) Client doing well, no treatment plan changes needed. [place] [facility]. Discussed sleep hygiene and [...] number to the 24-hour crisis line at [facility]. Questions addressed. Client verbalized understanding of all information and is agreeable to treatment plan. Client doing well, no treatment plan changes needed. Plan Of Treatment Medication Medication Name Sig Start Date Stop Date Notes DULoxetine HCl 30 MG 1 capsule in PM Ora lly Once a day for 30 days lamoTRIgine 100 MG 1 tablet Orally Once a day for 30 days ARIPiprazole 10 MG 1 tablet Orally Once a day for 30 days DULoxetine HCl 60 MG 1 capsule in am Ora lly Once a day for 30 days Topiramate 100 MG 1 tablet Orally Twic e a day for 30 days Triazolam 0.25 MG 1 tablet at bedtime Orally Once a day. for 30 days 11/05/2023 Treatment Notes Assessment Notes [place]. Discussed sleep hygiene and caffeine [...] number to the 24-hour crisis line at [facility]. Questions addressed. Client verbalized understanding of all information and is agreeable to treatment plan. Next Appt Details Follow Up: 4 Weeks, Reason: Medication management - can be telehealth appt. Progress Notes * David MTZOB:1980 (43 yo M)Acc No.[id number]:11/05/2023 Patient: Moses LYNNE Provider: Fuentes Aguirre DNP, PMHNP-BC :1980 A ge:43 Y S ex:Male Date:11/05/2023 Address:[address] [place], [place] [id number] Pcp:Brett Russ Subjective: * Chief Complaints: * [...] not needed at this time.? S creening: Dodge Suicide Severity Rating Scale (LF) D o [...] onstitutional: Session conducted telephonically with client's consent. The patient is a 43-year-old male who has been experiencing issues with his hip. He has an upcoming appointment with his primary care physician and is in the process of switching to a new orthopedic doctor. He has been dealing with insurance issues, but these have been resolved. He has been maintaining his weight loss and his weight is steady. He has been taking medication for sleep, which seems to be working. He has a dog that keeps him active. He also has a daughter with whom he spends time.? He states overall he has been doing well and feels stable. He has a new puppy, jemma ray. [...] several times Family history of drug/alcohol use: [id number] alcohol. Raised by: parents when he was 6 yo, father raised him. Father when client was 18 yo. Mother still living. : none Children: one 13 yo daughter who lives between his mother and himself. Education: HS Diploma. Was bullied during school years. Job: off work at current time, will be returning to [employer] at [employer] in [place]. * ROS: P sych ROS: Constitutional D enies. E yes D enies. E ars/Nose/Mouth/Throat D enies. R espiratory R eports, H x of empyema, smoker. A llergic/Immunologic D enies. C ardiovascular D enies. G I D enies. G U D enies. M usculoskeletal R eports, j oint pain , chronic pain,arthritis. N eurological D enies. I ntegumentary D enies. E ndocrine R eports, D M, metabolic syndrome . H ematological/Lymphatic D [...] daughter(s) . . * Social History: P rimary Social History: A lcohol Use A lcohol [...] USE TO TEST BLOOD SUGAR ONCE DAILY Triazolam 0.25 MG Tablet 1 tablet at bedtime Orally Once a day. As needed for insomniaARIPiprazole 10 MG Tablet 1 tablet Orally Once a day lamoTRIgine 100 MG Tablet 1 tablet Orally Once a day Topiramate 100 MG Tablet 1 tablet Orally Twice a day DULoxetine HCl 30 MG Capsule Delayed Release Particles 1 capsule in PM Orally Once a day DULoxetine HCl 60 MG Capsule Delayed Release Particles 1 capsule in am Orally Once a day Taking Famotidine 20 MG Tablet 1 tablet Orally [...] TO TEST BLOOD SUGAR ONCE DAILY Taking Triazolam 0.25 MG Tablet 1 tablet at bedtime Orally Once a day. As needed for insomniaTaking ARIPiprazole 10 MG Tablet 1 tablet Orally [...] capsule in am Orally Once a day Not-TakingAleve 220 MG Tablet 1 tablet with food or milk as needed Orally every 12 hrs Not-Taking Aleve 220 MG Tablet 1 tablet with food or milk as needed Orally every 12 hrs * Allergies: P enicillinno[Allergies Verified] Objective: * Vitals: * Examination: P sychiatry: [...] days, 30, Refills 1. 3. O thers Notes[place]. Discussed [...] number to the 24-hour crisis line at [facility]. Questions addressed. Client verbalized understanding of all information and is agreeable to treatment plan. 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 Screening Dodge Suicide Sev erity Rating Scale (LF) Do [...]
--- OUTSIDE RECORDS SUMMARY | 2024-07-12 19:46 | XMS_ITS | Encounter Summary ---
Author Organization [facility] Address [address] [place] [address] Care Team Providers Care Cutting Machine Operator Name Role Phone Miscellaneous, Not In File Unavailable Unava ilable Fabrizio Boone MD Primary Care Provider Leola Celaya MD Unavailable Brett Russ MD Unavailable [phone] Encounter Details Date Type Department Care Team (Late st Contact Info) Description 01/31/2021 Telephone [facility] [address] [place] [address] Fatoumata Lyman, RT Social History Tobacco Use Types Packs/Day Years [...] points, staff should administer the PHQ-9) 0 12/07/2020 Sex and Gender Information Value Date Recorded Sex Assigned at Not on file Legal Sex Male 8:44 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
--- OUTSIDE RECORDS SUMMARY | 2024-07-12 19:46 | XMS_ITS | Clinical Summary ---
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 Name Role Phone Miscellaneous, Not In File Unavailable Unava ilable Fabrizio Boone MD Primary Care Provider Leola Celaya MD Unavailable Brett Russ MD Unavailable [phone] Allergies Active Allergy Reactions Criticality Noted Date Comments Penicillin Hives Medium 07/15/2022 Medications acetaminophen ER (TYLENOL) 650 mg 8 hr tablet Take 1 tablet (650 mg total) by mouth every 8 (eight) hours as needed for pain Active ergocalciferol (VITAMIN D) 50,000 unit capsuleIndicati ons:Prophylacti c antibiotic Take 1 capsule (50,000 Units total) by mouth once a week TAKE 1 CAPSULE ONCE A WEEK FOR 12 WEEKS, THEN FOLLOW UP WITH YOUR PCP. 12 capsule 01/09/20 22 Active albuterol 2.5 mg /3 mL (0.083 %) nebulizer solutionIndicat ions:Upper respiratory tract infection, unspecified type Take 3 mL (2.5 mg total) by nebulization every 4 (four) hours as needed for wheezing or shortness of breath 25 mL 05/07/20 22 Active lamoTRIgine (LaMICtal) 100 mg tabletIndicatio ns:Bipolar Disorder in Remission Take 1 tablet (100 mg total) by mouth nightly 07/09/[address] (CYMBALTA) 60 mg capsuleIndicati ons:Anxiety with Depression Take 1 capsule (60 mg total) by mouth every morning Active topiramate (TOPAMAX) 100 mg tabletIndicatio ns:weight loss Take 1 tablet (100 mg total) by mouth 2 (two) times a day Active mupirocin (BACTROBAN) 2 % ointmentIndicat ions:Prophylact ic antibiotic Apply topically 3 (three) times a day 22 g 08/29/19 23 Active naproxen (ALEVE) 220 mg tabletIndicatio ns:Pain Take 1 tablet (220 mg total) by mouth 2 (two) times a day with meals Active miscellaneous medical supply miscIndications :Abnormality of gait and mobility 1 each once for 1 dose Please provide rolling walker for patient to assist with activities of daily living and prevent falls. 1 each 09/18/19 23 Active albuterol HFA (Proventil HFA) 90 mcg/actuation inhaler Inhale 2 puffs every 6 (six) hours as needed for wheezing or shortness of breath 1 each 11 01/30/20 23 Active folic acid (FOLVITE) 1 mg tablet TAKE 1 TABLET BY MOUTH EVERY DAY 30 tablet 5 01/30/20 23 Active atorvastatin (LIPITOR) 20 mg tabletIndicatio ns:Type 2 diabetes mellitus with diabetic polyneuropathy, without long-term current use of insulin (HCC),Dyslipide paulino associated with type 2 diabetes mellitus (HCC) TAKE 1 TABLET BY MOUTH EVERY DAY 90 tablet 1 03/11/20 23 Active OneTouch Verio test strips strip 04/07/20 23 Active OneTouch Delica Plus Lancet 33 gauge misc 04/04/20 23 Active famotidine (PEPCID) 20 mg tablet TAKE 1 TABLET BY MOUTH TWICE A DAY 180 tablet 1 05/11/20 23 Active montelukast (SINGULAIR) 10 mg tabletIndicatio ns:Moderate persistent asthma, unspecified whether complicated,Env ironmental allergies TAKE 1 TABLET BY MOUTH EVERY DAY AT NIGHT 30 tablet 3 06/11/19 24 Active ARIPiprazole (ABILIFY) 10 mg tablet TAKE 1 TABLET BY MOUTH EVERY DAY FOR 30 DAYS 06/19/[address] (CYMBALTA) 30 mg capsule TAKE 1 CAPSULE BY MOUTH EVERY DAY IN THE EVENING 06/19/19 24 Active triazolam (HALCION) 0.25 mg tablet 08/13/19 24 Active losartan (COZAAR) 100 mg tabletIndicatio ns:Hypertension associated with diabetes (HCC) TAKE 1 TABLET BY MOUTH EVERY DAY 90 tablet 3 10/04/19 24 Active gabapentin (NEURONTIN) 300 mg capsuleIndicati ons:Diabetic peripheral neuropathy associated with type 2 diabetes mellitus (CMS/HCC) (HCC) Take 1 capsule (300 mg total) by mouth 2 (two) times a day 180 capsule 1 12/04/19 24 Active SITagliptin phosphate (JANUVIA) 50 mg tabletIndicatio ns:type 2 diabetes mellitus Take 1 tablet (50 mg total) by mouth daily 90 tablet 1 01/31/20 24 025 Active tiotropium-olod ateroL (Stiolto Respimat) 2.5-2.5 mcg/actuation inhalerIndicati ons:Chronic obstructive pulmonary disease, unspecified COPD type ([facility]) Inhale 2 puffs daily 1 each 11 02/03/20 24 Active tirzepatide (MOUNJARO) 7.5 mg/0.5 mL pen injectorIndicat ions:type 2 diabetes mellitus Inject 7.5 mg under the skin once a week 2 mL 2 03/06/20 24 Active HYDROcodone-saba taminophen (NORCO) 7.5-325 mg per tabletIndicatio ns:Pain Take 1 tablet by mouth every 8 (eight) hours as needed for pain 90 tablet 06/30/19 25 Active HYDROcodone-saba taminophen (NORCO) 7.5-325 mg per tabletIndicatio ns:Pain Take 1 tablet by mouth every 8 (eight) hours as needed for pain 90 tablet 02/25/20 24 025 Discontin ued(Reord er) Active Problems Problem Noted Date Diagnosed Date Hypokalemia 03/15/2024 Assessment & Plan (03/15/2024 6:06 PM CDT): - note don prior testing lab work - reports he has been taking potassium supplements over the counter - has outstanding lab work from me that needs to be done, reminder provided Lab Results Component Value Date POTASSIUM 3.2 (L) 12/19/2023 halfway current use of opiate analgesic 2023 Overview (03/15/2024): see plan under chronic left hip pain secondary to osteoarthritis Assessment & Plan (06/30/2024 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): -Chronic, controlled -Currently takes [place] 7.5-325 mg as needed for chronic left hip pain -Has signed opiate agreement with PCP -Continue current treatment plan Cigarette nicotine dependence in remission 02/02 Assessment & Plan (02/03/2024 11:07 AM CDT): We will follow previously identified pulmonary nodules every 2 years until he qualifies for annual screening at age 48 Chronic obstructive pulmonary disease 01/12/2024 Assessment & Plan (02/03/2024 10:37 AM CDT): I have redemonstrated the use of Stiolto Respimat He will discontinue Symbicort and start Stiolto Respimat 2 puffs daily I have sent a prescription to his pharmacy, he will call if he has difficulty obtaining his medication or if his respiratory status worsens after starting Stiolto. Continue albuterol as needed only, we have discussed indications for use Assessment & Plan (01/12/2024 10:36 PM CDT): - chronic condition, stable - was having shortness of breath with wheezing - long hx of smoking, 43pk/years - has hx of empyema - scarring of right lung XR chest - 11/14 - Mild scarring at the right lung base. Blunting of right costophrenic angle - to be on Symbicort but has been changed by his city supervisor to Stiolto 2 puffs daily and albuterol as needed only per pulmonology - established with Pulmonology - Dr. Galo - continue current therapy per pulmonology - PFT with 6 min walk test 11/23/2020: Spirometry data does not demonstrate any evidence of obstruction or significant improvement post bronchodilator therapy. Lung volumes demonstrate restrictive ventilatory impairment. DLCO is mildly reduced compatible with diffusion impairment. Findings can be seen with pulmonary parenchymal / pulmonary vascular disorders. Suggest clinical correlation. 6 minute walk test was performed. Patient maintained oxygen saturation within normal range and did not require supplemental oxygen with rest or ambulation Full code status 11/12/2023 Assessment & Plan (11/12/2023 4:48 PM CDT): Advance Care Planning Conversation Pertinent diagnoses: Type 2 diabetes, hypertension, dyslipidemia, obesity, obstructive sleep apnea, history of alcohol use and personal history of tobacco use The patient and/or family consented to a voluntary Advance Care Planning conversation. 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 Fabrizio Boone MD Chronic left shoulder pain 11/12/2023 Assessment & Plan (11/12/2023 4:51 PM CDT): - chronic, worse - in the past was noted to have biceps tendinitis of left shoulder - however pain is progressing, plan to obtain x-ray of the shoulder left with results as shown below - results show left rotator cuff calcific tendinitis as well as moderate AC joint arthritic changes - recommend a trial of large joint injection, will be set up EXAM DESCRIPTION: XR SHOULDER LEFT 2 OR MORE VIEWS REASON FOR STUDY: left shoudler pain for several months, biceps tendonitis suspected, no injury Complaints of chronic L shoulder pain. Possible tendonitis? Pt states pain radiates to mid-humerus. Limited ROM. No prior injuries/surgery to L shoulder. FINDINGS: Four views submitted without comparison. No acute fractures are identified. Alignment is normal. There is mild glenohumeral and moderate acromioclavicular joint osteoarthritis. Rotator cuff calcific tendinitis is present. IMPRESSION: Mild left glenohumeral and moderate acromioclavicular joint osteoarthritis. Left rotator cuff calcific tendinitis. Medicare annual wellness visit, subsequent 11/11 Need for pneumococcal 20-valent conjugate vaccin ation 08/15/2023 Assessment & Plan (08/15/2023 12:40 PM CDT): - discussed indication potential benefit for pneumococcal 20 vaccination - patient states he will consider it in the future Biceps tendonitis on left 08/15/2023 Assessment & Plan (08/15/2023 12:42 PM CDT): - new diagnosis - etiology and cause discussed and management options - at this time will minimize overuse, NSAIDS as needed Leg length discrepancy 01/07/2023 Assessment & Plan (01/07/2023 3:06 PM CDT): - follows with podiatry - has 1.5 inch leg length shortage from what he has been told Ganglion cyst of right foot 11/20/2022 Assessment & Plan (11/20/2022 1:54 PM CDT): - recent diagnosis - not causing pain or discomfort - will continue to monitor, provided options for intervention but would like to defer Abnormality of gait due to impairment of balance 10/19/2022 Sebaceous cyst of scrotum 09/18/2022 Assessment & Plan (09/18/2022 9:52 AM CDT): - new diagnosis - discussed benign nature and can be evaluated by urology - see photo taken of single sebaceous cyst of scrotum - will defer until he has his hip pain and surgery out of the way Left foot pain 08/09/2022 Overview (08/09/2022): XR left foot 08/16 Mild left pes planovalgus. Mild left foot and 1st metatarsophalangeal joint osteoarthritis. 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 Discussed importance of regular tooth brushing, flossing, and dental visits. - Nutrition: Stressed importance of moderation in sodium/caffeine intake, saturated fat and cholesterol, caloric balance, sufficient intake of fresh fruits, vegetables - Exercise: Stressed the importance of regular exercise - Immunizations: Age and sex appropriate immunizations reviewed. 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 Primary osteoarthritis of left hip 10/26/2021 Overview (10/26/2021): Added automatically from request for surgery [id number] Dyslipidemia associated with type 2 diabetes han litus 09/03/2021 Assessment & Plan (11/07/2023 4:15 PM CDT): - chronic, well controlled - has known DM2 controlled, obesity - currently on Atorvastatin 20 mg daily - most recent LDL as shown below, due for repeat, lab ordered - continue with current management with changes made above Lab Results Component Value Date CHOL 175 08/15/2023 CHOL 184 07/09/2022 CHOL 197 08/24/2021 Lab Results Component Value Date HDL 36 (L) 08/15/2023 HDL 38 (L) 07/09/2022 HDL 43 08/24/2021 Lab Results Component Value Date LDLCALC 108 08/15/2023 LDLCALC 72 07/09/2022 LDLCALC 93 08/24/2021 Lab Results Component Value Date TRIG 156 (H) 08/15/2023 TRIG 370 (H) 07/09/2022 TRIG 307 (H) 08/24/2021 Assessment & Plan (11/20/2022 1:52 PM CDT): - chronic, well controlled - has known DM2 controlled, obesity - currently on Atorvastatin 20 mg daily - most recent LDL as shown below, due for repeat, lab ordered - continue with current management with changes made above Lab Results Component Value Date CHOL 184 07/09/2022 CHOL 197 08/24/2021 CHOL 148 03/23/2021 Lab Results Component Value Date HDL 38 (L) 07/09/2022 HDL 43 08/24/2021 HDL 38 (L) 03/23/2021 Lab Results Component Value Date LDLCALC 72 07/09/2022 LDLCALC 93 08/24/2021 LDLCALC 62 03/23/2021 Lab Results Component Value Date TRIG 370 (H) 07/09/2022 TRIG 307 (H) 08/24/2021 TRIG 240 (H) 03/23/2021 Assessment & Plan (06/20/2022 4:44 PM 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): - chronic, not at goal - has known DM2 controlled, obesity - currently on Atorvastatin 20 mg daily - most recent LDL as shown below, due for repeat, lab ordered - continue with current management with changes made above Lab Results Component Value Date CHOL 197 08/24/2021 CHOL 148 03/23/2021 CHOL 172 11/09/2020 Lab Results Component Value Date HDL 43 08/24/2021 HDL 38 (L) 03/23/2021 HDL 49 11/09/2020 Lab Results Component Value Date LDLCALC 93 08/24/2021 LDLCALC 62 03/23/2021 LDLCALC 106 11/09/2020 Lab Results Component Value Date TRIG 307 (H) 08/24/2021 TRIG 240 (H) 03/23/2021 TRIG 87 11/09/2020 Assessment & Plan (03/07/2022 12:57 PM CDT): - chronic, not at goal but improved - has known DM2 controlled, obesity - currently on Atorvastatin 20 mg daily - most recent LDL as shown below - continue with current management with changes made above Lab Results Component Value Date LDLCALC 93 08/24/2021 Assessment & Plan (12/05/2021 12:43 PM CDT): - chronic, not at goal but improved - has known DM2 controlled, obesity - currently on Atorvastatin 20 mg daily - most recent LDL as shown below - recheck lipid panel on future visit Lab Results Component Value Date LDLCALC 93 08/24/2021 Assessment & Plan (10/03/2021 12:39 PM CDT): - chronic, not at goal - has known DTYPE 2 DIABETES, controlled, obesity - currently on Atorvastatin 20 mg daily - most recent LDL as shown below - recheck lipid panel on future visit Lab Results Component Value Date LDLCALC 93 08/24/2021 Assessment & Plan (09/03/2021 2:35 PM CDT): - chronic, not at goal - has known DTYPE 2 DIABETES, controlled - currently on Atorvastatin 10 mg daily --> increase to 20 mg daily - most recent LDL as shown below Lab Results Component Value Date LDLCALC 93 08/24/2021 Chronic left hip pain 08/09/2021 Overview (08/09/2021): Pain management agreement in file from 07/25/2021 Assessment & Plan (06/30/2024 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): -Chronic, suboptimally controlled -Currently takes [place] 7.5-325 mg as needed, gabapentin 300 mg b.i.d., Cymbalta 90 mg daily, naproxen as needed -Established with Orthopedics for possible left hip replacement -Patient reports his pain is about the same on his current regimen -Encourage patient to reach out to orthopedics office for appointment to further discuss surgical intervention -Continue current treatment plan Assessment & Plan (03/15/2024 6:01 PM CDT): - chronic left hip pain secondary to arthritis, stable - already established with orthopedics, will need hip replacment, scheduled in the past but failed cotinine test and was cancelled - reviewed most recent Xr of the hip as shown below - S/p left hip injections on 05/17/2021, 05/02/2021, and 12/01/2020 - continue current management, reviewed PDMP with no concerning findings - pain management agreement signed on 07/25/2021 - currently on hydrocodone 7.5-325 mg TID PRN for chronic left hip pain - multiple plans for surgical intervention postponed due to request for meeting weight requirement in the past- have asked him to lose weight get BMI <40 --> he is now <BMI 40 - continue current management until surgical intervention XR Hip Left 2 or 3 Views AP pelvis and false profile radiographs taken of the left hip today reveal moderate to severe degenerative changes with subchondral sclerosis, osteophyte formation, and diminished joint space. Assessment & Plan (01/12/2024 10:23 PM CDT): - chronic left hip pain secondary to arthritis, stable - already established with orthopedics, will need hip replacment, scheduled in the past but failed cotinine test and was cancelled - reviewed most recent Xr of the hip as shown below - S/p left hip injections on 05/17/2021, 05/02/2021, and 12/01/2020 - continue current management, reviewed PDMP with no concerning findings - pain management agreement signed on 07/25/2021 - currently on hydrocodone 7.5-325 mg TID PRN for chronic left hip pain - multiple plans for surgical intervention postponed due to request for meeting weight requirement - have asked him to lose weight get BMI <40 --> he is now <BMI 40 - continue current management until surgical intervention which he is going to be scheduled for XR Hip Left 2 or 3 Views AP pelvis and false profile radiographs taken of the left hip today reveal moderate to severe degenerative changes with subchondral sclerosis, osteophyte formation, and diminished joint space. Assessment & Plan (08/15/2023 12:41 PM CDT): - chronic left hip pain secondary to arthritis, stable - already established with orthopedics, will need hip replacment, scheduled in the past but failed cotinine test and was cancelled - reviewed most recent Xr of the hip as shown below - S/p left hip injections on 05/17/2021, 05/02/2021, and 12/01/2020 - continue current management, reviewed PDMP with no concerning findings - pain management agreement signed on 07/25/2021 - currently on hydrocodone 7.5-325 mg TID PRN for chronic left hip pain - multiple plans for surgical intervention postponed due to request for meeting weight requirement - have asked him to lose weight get BMI <40 --> will reach out to them as he has been losing weight with medication assistance - continue current management until surgical intervention - UDS - collected for testing XR Hip Left 2 or 3 Views AP pelvis and false profile radiographs taken of the left hip today reveal moderate to severe degenerative changes with subchondral sclerosis, osteophyte formation, and diminished joint space. 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): - chronic left hip pain secondary to arthritis, stable - already established with orthopedics, will need hip replacment, scheduled in the past but failed cotinine test and was cancelled - reviewed most recent Xr of the hip as shown below - S/p left hip injections on 05/17/2021, 05/02/2021, and 12/01/2020 - continue current management, reviewed PDMP with no concerning findings - pain management agreement signed on 07/25/2021 - currently on hydrocodone 7.5-325 mg TID PRN for chronic left hip pain - multiple plans for surgical intervention postponed due to request for meeting weight requirement - have asked him to lose weight - continue current management until surgical intervention XR Hip Left 2 or 3 Views AP pelvis and false profile radiographs taken of the left hip today reveal moderate to severe degenerative changes with subchondral sclerosis, osteophyte formation, and diminished joint space. 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 Crenshaw - will see me in early May, will also need to be seen by sleep medicine and pulmonology prior to surgery - continue current management until surgical intervention XR Hip Left 2 or 3 Views AP pelvis and false profile radiographs taken of the left hip today reveal moderate to severe degenerative changes with subchondral sclerosis, osteophyte formation, and diminished joint space. Assessment & Plan (01/07/2023 2:51 PM CDT): - chronic left hip pain secondary to arthritis, stable - already established with orthopedics, will need hip replacment, scheduled in the past but failed cotinine test and was cancelled - reviewed most recent Xr of the hip as shown below - S/p left hip injections on 05/17/2021, 05/02/2021, and 12/01/2020 - continue current management, reviewed PDMP with no concerning findings - pain management agreement signed on 07/25/2021 - currently on hydrocodone 7.5-325 mg TID PRN for chronic left hip pain - has quit smoking and has surgery scheduled for left hip replacement on 09/26/2022 ---> cancelled due to need for BMI to be <40 and cotinine test being positive, patient frustrated with this - continue current management until surgical intervention XR Hip Left 2 or 3 Views AP pelvis and false profile radiographs taken of the left hip today reveal moderate to severe degenerative changes with subchondral sclerosis, osteophyte formation, and diminished joint space. Assessment & Plan (11/20/2022 11:53 AM CDT): - chronic left hip pain secondary to arthritis, stable - already established with orthopedics, will need hip replacment, scheduled in the past but failed cotinine test and was cancelled - reviewed most recent Xr of the hip as shown below - S/p left hip injections on 05/17/2021, 05/02/2021, and 12/01/2020 - continue current management, reviewed PDMP with no concerning findings - pain management agreement signed on 07/25/2021 - currently on hydrocodone 7.5-325 mg TID PRN for chronic left hip pain --> refill provided - has quit smoking and has surgery scheduled for left hip replacement on 09/26/2022 ---> cancelled due to need for BMI to be <40 and cotinine test being positive, patient frustrated with this XR Hip Left 2 or 3 Views AP pelvis and false profile radiographs taken of the left hip today reveal moderate to severe degenerative changes with subchondral sclerosis, osteophyte formation, and diminished joint space. Assessment & Plan (10/19/2022 10:44 AM CDT): - chronic left hip pain secondary to arthritis, stable - already established with orthopedics, will need hip replacment, scheduled in the past but failed cotinine test and was cancelled - reviewed most recent Xr of the hip as shown below - S/p left hip injections on 05/17/2021, 05/02/2021, and 12/01/2020 - continue current management, reviewed PDMP with no concerning findings - pain management agreement signed on 07/25/2021 - currently on hydrocodone 7.5-325 mg TID PRN for chronic left hip pain --> refill provided - has quit smoking and has surgery scheduled for left hip replacement on 09/26/2022 ---> cancelled due to need for BMI to be <40 and cotinine test being positive, patient frustrated with this XR Hip Left 2 or 3 Views AP pelvis and false profile radiographs taken of the left hip today reveal moderate to severe degenerative changes with subchondral sclerosis, osteophyte formation, and diminished joint space. Assessment & Plan (09/18/2022 9:53 AM CDT): - chronic left hip pain secondary to arthritis, stable - already established with orthopedics, will need hip replacment, scheduled in the past but failed cotinine test and was cancelled - reviewed most recent Xr of the hip as shown below - S/p left hip injections on 05/17/2021, 05/02/2021, and 12/01/2020 - continue current management, reviewed PDMP with no concerning findings - pain management agreement signed on 07/25/2021 - currently on hydrocodone 7.5-325 mg TID PRN for chronic left hip pain --> refill provided - has quit smoking and has surgery scheduled for left hip replacement on 09/26/2022 ---> cancelled due to need for BMI to be <40 and cotinine test being positive, patient frustrated with this XR Hip Left 2 or 3 Views AP pelvis and false profile radiographs taken of the left hip today reveal moderate to severe degenerative changes with subchondral sclerosis, osteophyte formation, and diminished joint space. Assessment & Plan (09/17/2022 11:01 PM CDT): - chronic left hip pain secondary to arthritis, controlled - already established with orthopedics, will need hip replacment, scheduled in the past but failed cotinine test and was cancelled - reviewed most recent Xr of the hip as shown below - S/p left hip injections on 05/17/2021, 05/02/2021, and 12/01/2020 - continue current management, reviewed PDMP with no concerning findings - pain management agreement signed on 07/25/2021 - currently on hydrocodone 7.5-325 mg TID PRN for chronic left hip pain --> refill provided - has quit smoking and has surgery scheduled for left hip replacement on 09/26/2022 XR Hip Left 2 or 3 Views AP pelvis and false profile radiographs taken of the left hip today reveal moderate to severe degenerative changes with subchondral sclerosis, osteophyte formation, and diminished joint space. 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): - chronic left hip pain secondary to arthritis, controlled - already established with orthopedics, will need hip replacment, scheduled in the past but failed cotinine test and was cancelled - reviewed most recent Xr of the hip as shown below - S/p left hip injections on 05/17/2021, 05/02/2021, and 12/01/2020 - continue current management, reviewed PDMP with no concerning findings - pain management agreement signed on 07/25/2021 - currently on hydrocodone 7.5-325 mg TID PRN for chronic left hip pain --> refill provided - has quit smoking and has surgery scheduled for left hip replacement on 09/26/2022 XR Hip Left 2 or 3 Views AP pelvis and false profile radiographs taken of the left hip today reveal moderate to severe degenerative changes with subchondral sclerosis, osteophyte formation, and diminished joint space. Assessment & Plan (06/14/2022 10:02 AM 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): - chronic left hip pain secondary to arthritis, controlled - already established with orthopedics, will need hip replacment, scheduled for some time in December - reviewed most recent Xr of the hip as shown below - pain management agreement signed on 07/25/2021 - currently on hydrocodone 7.5-325 mg TID PRN for chronic left hip pain --> refill provided - S/p left hip injections on 05/17/2021, 05/02/2021, and 12/01/2020 - continue current management, reviewed PDMP with no concerning findings - had surgery planned but got cancelled due to nicotine test that came back positive - planning to quit smoking and recheck XR Hip Left 2 or 3 Views AP pelvis and false profile radiographs taken of the left hip today reveal moderate to severe degenerative changes with subchondral sclerosis, osteophyte formation, and diminished joint space. Assessment & Plan (05/10/2022 9:32 AM 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): - chronic left hip pain secondary to arthritis, controlled - already established with orthopedics, will need hip replacment, scheduled for some time in December - reviewed most recent Xr of the hip as shown below - pain management agreement signed on 07/25/2021 - currently on hydrocodone 7.5-325 mg TID PRN for chronic left hip pain --> refill provided - S/p left hip injections on 05/17/2021, 05/02/2021, and 12/01/2020 - continue current management, reviewed PDMP with no concerning findings - had surgery planned but got cancelled due to nicotine test that came back positive - planning to quit smoking and recheck XR Hip Left 2 or 3 Views AP pelvis and false profile radiographs taken of the left hip today reveal moderate to severe degenerative changes with subchondral sclerosis, osteophyte formation, and diminished joint space. Assessment & Plan (03/07/2022 12:59 PM CDT): - chronic left hip pain secondary to arthritis, controlled - already established with orthopedics, will need hip replacment, scheduled for some time in December - reviewed most recent Xr of the hip as shown below - pain management agreement signed on 07/25/2021 - currently on hydrocodone 7.5-325 mg TID PRN for chronic left hip pain --> refill provided - S/p left hip injections on 05/17/2021, 05/02/2021, and 12/01/2020 - continue current management, reviewed PDMP with no concerning findings - had surgery planned but got cancelled due to nicotine test that came back positive - planning to quit smoking and recheck XR Hip Left 2 or 3 Views AP pelvis and false profile radiographs taken of the left hip today reveal moderate to severe degenerative changes with subchondral sclerosis, osteophyte formation, and diminished joint space. Assessment & Plan (12/05/2021 12:44 PM CDT): - chronic left hip pain secondary to arthritis, controlled - already established with orthopedics, will need hip replacment, scheduled for some time in December - reviewed most recent Xr of the hip as shown below - pain management agreement signed on 07/25/2021 - currently on Hydrocodone 7.5-325 mg TID PRN for chronic left hip pain --> refill provided - S/p left hip injections on 05/17/2021, 05/02/2021, and 12/01/2020 - continue current management, reviewed PDMP with no concerning findings - has surgery planned for next month for left hip replacement XR Hip Left 2 or 3 Views AP pelvis and false profile radiographs taken of the left hip today reveal moderate to severe degenerative changes with subchondral sclerosis, osteophyte formation, and diminished joint space. Assessment & Plan (10/03/2021 12:37 PM CDT): - chronic left hip pain secondary to arthritis, controlled to some degree - already established with orthopedics, will need hip replacment, scheduled for some time in December - reviewed most recent Xr of the hip as shown below - Pain management agreement in file from 07/25/2021 - pain management agreement signed on 07/25/2021 - currently on Hydrocodone 7.5-325 mg TID PRN for chronic left hip pain --> refill provided - S/p left hip injections on 05/17/2021, 05/02/2021, and 12/01/2020 - continue current management, reviewed PDMP with no concerning findings XR Hip Left 2 or 3 Views AP pelvis and false profile radiographs taken of the left hip today reveal moderate to severe degenerative changes with subchondral sclerosis, osteophyte formation, and diminished joint space. Assessment & Plan (09/03/2021 2:33 PM CDT): - chronic left hip pain secondary to arthritis, better but not at goal - already established with orthopedics, will need to see a new provider due to his BMI - would benefit with surgical intervention but delayed due to morbid obesity Body mass index is 44.23 kg/m . - has had steroid injections without success - reviewed most recent Xr of the hip as shown below - pain management agreement signed on 07/25/2021 - currently on Hydrocodone 7.5-325 mg BID PRN for chronic left hip pain --> increase to TID for now - S/p left hip injections on 05/17/2021, 05/02/2021, and 12/01/2020 - check UDS today, continue current management, reviewed PDMP with no concerning findings XR Hip Left 2 or 3 Views AP pelvis and false profile radiographs taken of the left hip today reveal moderate to severe degenerative changes with subchondral sclerosis, osteophyte formation, and diminished joint space. Assessment & Plan (08/09/2021 2:06 PM CDT): - chronic left hip pain secondary to arthritis - already established with orthopedics - would benefit with surgical intervention but delayed due to morbid obesity Body mass index is 45.58 kg/m . - has had steroid injections without success - reviewed most recent Xr of the hip as shown below - pain management agreement signed - starting Hydrocodone 7.5-325 mg BID PRN for chronic left hip pain - S/p left hip injections on 05/17/2021, 05/02/2021, and 12/01/2020 XR Hip Left 2 or 3 Views AP pelvis and false profile radiographs taken of the left hip today reveal moderate to severe degenerative changes with subchondral sclerosis, osteophyte formation, and diminished joint space. 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 -patient reports adequate relief with current regimen -reiterated importance of regular diabetic foot exams and close monitoring of skin where neuropathy affects them -refill of medication provided -continue current treatment plan Assessment & Plan (06/14/2022 9:57 AM 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): - chronic, better controlled - was having pin and needle like sensation in left feet > Right feet - currently on Gabapentin 300 mg BID, at times takes an extra at nighttime - recommend good control of diabetes - most recent A1c as shown below - continue therapy with changed made above Lab Results Component Value Date HGBA1C 6.2 03/07/2022 Lab Results Component Value Date VITB12 361 08/24/2021 Lab Results Component Value Date FOLATE 16.5 08/24/2021 Assessment & Plan (03/07/2022 1:01 PM CDT): - chronic, better controlled - was having pin and needle like sensation in left feet > Right feet - currently on Gabapentin 300 mg BID, at times takes an extra at nighttime - recommend good control of diabetes - most recent A1c as shown below - continue therapy with changed made above Lab Results Component Value Date HGBA1C 6.2 10/03/2021 Lab Results Component Value Date VITB12 361 08/24/2021 Lab Results Component Value Date FOLATE 16.5 08/24/2021 Assessment & Plan (12/05/2021 12:44 PM CDT): - chronic, not well controlled - was having pin and needle like sensation in left feet > Right feet - currently on Gabapentin 300 mg nightly --> increase to 300mg BID - recommend good control of diabetes - most recent A1c as shown below - continue therapy with changed made above Lab Results Component Value Date HGBA1C 6.2 10/03/2021 Assessment & Plan (10/03/2021 12:40 PM CDT): - chronic, improved control - was having pin and needle like sensation in left feet > Right feet - started and currently on Gabapentin 300 mg nightly - recommend good control of diabetes - most recent A1c as shown below - continue current therapy Lab Results Component Value Date HGBA1C 6.2 10/03/2021 Assessment & Plan (08/09/2021 1:59 PM CDT): - chronic, improved control - was having pin and needle like sensation in left feet > Right feet - started and currently on Gabapentin 300 mg nightly - recommend good control of diabetes - most recent A1c as shown below - continue current therapy Lab Results Component Value Date HGBA1C 6.2 (H) 03/23/2021 Assessment & Plan (05/05/2021 9:38 AM 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): - new, uncontrolled - has been having pin and needle like sensation in left feet > Right feet - start Gabapentin up titrate to 300 mg nightly to start - recommend good control of diabetes - most recent A1c as shown below - follow up in 6-8 weeks Lab Results Component Value Date HGBA1C 6.2 (H) 03/23/2021 Lung nodule < 6cm on CT 03/23/2021 Assessment & Plan (03/23/2021 9:21 AM CDT): - noted on CT chest - 01/14 - Indeterminate 6 mm nodule in the right lower lobe superior segment. Follow-up chest CT is recommended in 3-6 months. - established with pulmonology, has repeat CT of chest already ordered YONATHAN on CPAP 02/28/2021 Overview (12/30/2023): Managed by sleep medicine - Dr. Celaya Assessment & Plan (02/03/2024 11:00 AM CDT): He is on APAP 6-16 with residual AHI 1.4 Continue to follow with sleep medicine Assessment & Plan (12/30/2023 4:34 PM CDT): - chronic, diagnosed on 03/2022 - has known moderate YONATHAN - established with sleep medicine Dr. Celaya - has been using CPAP device recently which is encouraging - continue current management Assessment & Plan (04/10/2023 9:30 AM 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): - chronic, diagnosed on 03/2022 - has known moderate YONATHAN - established with sleep medicine Dr. Celaya - has been using CPAP device recently which is encouraging - continue current management Assessment & Plan (12/05/2021 12:45 PM CDT): - chronic, diagnosed on 03/2022 - has known moderate YONATHAN - established with sleep medicine Dr. Celaya - has been using CPAP device - continue current management Assessment & Plan (10/03/2021 12:44 PM CDT): - chronic, diagnosed on 03/2022 - has known moderate YONATHAN - established with sleep medicine Dr. Celaya - has been using CPAP device - continue current management Assessment & Plan (02/28/2021 10:02 AM CDT): The patient presents with snoring and witnessed apneas. I have recommended proceeding with a nocturnal polysomnogram with a split night protocol if necessary and no MSLT. He will follow up here in 3 months. Type 2 diabetes mellitus wit h diabetic polyneuropathy, without long-term current use of insulin 11/10/2020 Assessment & Plan (06/30/2024 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): Lab Results Component Value Date HGBA1C 5.7 (H) 12/19/2023 -chronic, well-controlled -patient currently takes Mounjaro 7.5 mg weekly, Januvia 50 mg daily -patient reports checking blood sugar regularly at home -reiterated importance of diabetic foot and eye exams -most recent hemoglobin A1c shown above -will recheck lab work -continue current treatment plan Assessment & Plan (02/11/2024 11:35 AM CDT): Chronic condition which is well controlled Initial diagnosis - 10/2020 with an A1c of 7.0 Reviewed most recent A1c today- as shown below Lab Results Component Value Date HGBA1C 5.7 (H) 12/19/2023 HGBA1C 5.7 (H) 08/15/2023 HGBA1C 5.9 (H) 04/10/2023 Medications Currently on Metformin XR 500 mg daily --> has not been taking it, discontinue medication Currently on Januvia 50 mg daily (reduced recently on last visit), and Mounjaro 7.5 mg weekly injections Monitor blood sugar 1-2 times a day. Personally reviewed blood sugar logs Maintenance Diabetic (Monofilament) foot exam - due Annual dilated eye exams. Up to date Annual Urine microalbumin/creatinine ratio - up to date Lab Results Component Value Date ALBCREATRATU 4 08/15/2023 BP management B/P today - well controlled Patient is currently is on an SABA/ARB. Goal blood pressure is <140/90, long-term blood pressure goal is to be as close to 120/80 as possible. Dyslipidemia management Personally reviewed most recent LDL as shown below. Patient is on a Cholesterol lowering medication. Goal of less than 70 Currently on Lipitor 20mg daily Lab Results Component Value Date LDLCALC 108 08/15/2023 Diabetes Complications History of macrovascular disease (CVA, ND, PVD) is Present. Complications secondary to Diabetes - none Taking baby aspirin daily: No Smoking status: daily smoker Immunizations Discussed labs/ordered labs that have been ordered if applicable. Recommend a healthy low carb diet, include fresh fruits and vegetables daily. Diabetic education and nutritional counseling available if you have not had this before or annually. Recommend moving at least a total of 30 minutes/day. Just move more. Assessment & Plan (12/30/2023 4:35 PM CDT): Chronic condition which is well controlled Initial diagnosis - 10/2020 with an A1c of 7.0 Reviewed most recent A1c today- as shown below Lab Results Component Value Date HGBA1C 5.7 (H) 12/19/2023 HGBA1C 5.7 (H) 08/15/2023 HGBA1C 5.9 (H) 04/10/2023 Medications Currently on Metformin XR 500 mg daily (had diarrhea with higher dose) Currently on Januvia 100 mg daily Currently on Mounjaro 7.5 mg weekly injections Monitor blood sugar 1-2 times a day. Personally reviewed blood sugar logs Maintenance Diabetic (Monofilament) foot exam - due Annual dilated eye exams. Requesting eye exam records from [facility] [address] Last eye exam Annual Urine microalbumin/creatinine ratio - up to date Lab Results Component Value Date ALBCREATRATU 4 08/15/2023 BP management B/P today - well controlled Patient is currently is on an SABA/ARB. Goal blood pressure is <140/90, long-term blood pressure goal is to be as close to 120/80 as possible. Dyslipidemia management Personally reviewed most recent LDL as shown below. Patient is on a Cholesterol lowering medication. Goal of less than 70 Currently on Lipitor 20mg daily Lab Results Component Value Date LDLCALC 108 08/15/2023 Diabetes Complications History of macrovascular disease (CVA, ND, PVD) is Present. Complications secondary to Diabetes - none Taking baby aspirin daily: No Smoking status: daily smoker Immunizations Discussed labs/ordered labs that have been ordered if applicable. Recommend a healthy low carb diet, include fresh fruits and vegetables daily. Diabetic education and nutritional counseling available if you have not had this before or annually. Recommend moving at least a total of 30 minutes/day. Just move more. Assessment & Plan (11/12/2023 4:45 PM CDT): Chronic condition which is well controlled Initial diagnosis - 10/2020 with an A1c of 7.0 Reviewed most recent A1c today- as shown below Lab Results Component Value Date HGBA1C 5.7 (H) 08/15/2023 HGBA1C 5.9 (H) 04/10/2023 HGBA1C 6.1 01/07/2023 Medications Currently on Metformin XR 500 mg daily (had diarrhea with higher dose) Currently on Januvia 100 mg daily was on Trulicity 1.5 mg weekly injections (but been without it for 6-7 weeks due to supply issues at pharmacy) --> change to Mounjaro 5 mg weekly injections, script sent in Monitor blood sugar 1-2 times a day. Personally reviewed blood sugar logs Maintenance Diabetic (Monofilament) foot exam - normal, completed today 12/07/2020 Annual dilated eye exams. Requesting eye exam records from [facility] [place] Last eye exam Annual Urine microalbumin/creatinine ratio - abnormal Lab Results Component Value Date ALBCREATRATU 4 08/15/2023 BP management B/P today - well controlled Patient is currently is on an SABA/ARB. Goal blood pressure is <140/90, long-term blood pressure goal is to be as close to 120/80 as possible. Dyslipidemia management Personally reviewed most recent LDL as shown below. Patient is on a Cholesterol lowering medication. Goal of less than 70 Currently on Lipitor 20mg daily Lab Results Component Value Date LDLCALC 108 08/15/2023 Diabetes Complications History of macrovascular disease (CVA, ND, PVD) is Present. Complications secondary to Diabetes - none Taking baby aspirin daily: No Smoking status: daily smoker Immunizations Discussed labs/ordered labs that have been ordered if applicable. Recommend a healthy low carb diet, include fresh fruits and vegetables daily. Diabetic education and nutritional counseling available if you have not had this before or annually. Recommend moving at least a total of 30 minutes/day. Just move more. Assessment & Plan (08/15/2023 10:28 AM CDT): Chronic condition which is well controlled Initial diagnosis - 10/2020 with an A1c of 7.0 Reviewed most recent A1c today- as shown below Lab Results Component Value Date HGBA1C 5.9 (H) 04/10/2023 HGBA1C 6.1 01/07/2023 HGBA1C 6.2 (H) 09/13/2022 Medications Currently on Metformin XR 500 mg daily (had diarrhea with higher dose) Currently on Januvia 100 mg daily was on Trulicity 1.5 mg weekly injections (but been without it for 6-7 weeks due to supply issues at pharmacy) --> change to Mounjaro 5 mg weekly injections, script sent in Monitor blood sugar 1-2 times a day. Personally reviewed blood sugar logs Maintenance Diabetic (Monofilament) foot exam - normal, completed today 12/07/2020 Annual dilated eye exams. Requesting eye exam records from [facility] [address] Last eye exam Annual Urine microalbumin/creatinine ratio - abnormal Lab Results Component Value Date ALBCREATRATU <7 07/09/2022 BP management B/P today - well controlled Patient is currently is on an SABA/ARB. Goal blood pressure is <140/90, long-term blood pressure goal is to be as close to 120/80 as possible. Dyslipidemia management Personally reviewed most recent LDL as shown below. Patient is on a Cholesterol lowering medication. Goal of less than 70 Currently on Lipitor 20mg daily Lab Results Component Value Date LDLCALC 72 07/09/2022 Diabetes Complications History of macrovascular disease (CVA, ND, PVD) is Present. Complications secondary to Diabetes - none Taking baby aspirin daily: No Smoking status: daily smoker Immunizations Discussed labs/ordered labs that have been ordered if applicable. Recommend a healthy low carb diet, include fresh fruits and vegetables daily. Diabetic education and nutritional counseling available if you have not had this before or annually. Recommend moving at least a total of 30 minutes/day. Just move more. Assessment & Plan (07/15/2023 3:02 PM 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): Chronic condition which is well controlled Initial diagnosis - 10/2020 with an A1c of 7.0 Reviewed most recent A1c today- as shown below Lab Results Component Value Date HGBA1C 5.9 (H) 04/10/2023 HGBA1C 6.1 01/07/2023 HGBA1C 6.2 (H) 09/13/2022 Medications Currently on Metformin XR 500 mg daily (had diarrhea with higher dose) Currently on Januvia 100 mg daily was on Trulicity 1.5 mg weekly injections (but been without it for 6-7 weeks due to supply issues at pharmacy) --> change to Mounjaro 5 mg weekly injections, script sent in Monitor blood sugar 1-2 times a day. Personally reviewed blood sugar logs Maintenance Diabetic (Monofilament) foot exam - normal, completed today 12/07/2020 Annual dilated eye exams. Requesting eye exam records from [facility] [place] Last eye exam Annual Urine microalbumin/creatinine ratio - abnormal Lab Results Component Value Date ALBCREATRATU <7 07/09/2022 BP management B/P today - well controlled Patient is currently is on an SABA/ARB. Goal blood pressure is <140/90, long-term blood pressure goal is to be as close to 120/80 as possible. Dyslipidemia management Personally reviewed most recent LDL as shown below. Patient is on a Cholesterol lowering medication. Goal of less than 70 Currently on Lipitor 20mg daily Lab Results Component Value Date LDLCALC 72 07/09/2022 Diabetes Complications History of macrovascular disease (CVA, ND, PVD) is Present. Complications secondary to Diabetes - none Taking baby aspirin daily: No Smoking status: daily smoker Immunizations Discussed labs/ordered labs that have been ordered if applicable. Recommend a healthy low carb diet, include fresh fruits and vegetables daily. Diabetic education and nutritional counseling available if you have not had this before or annually. Recommend moving at least a total of 30 minutes/day. Just move more. Assessment & Plan (06/06/2023 3:27 PM 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): Chronic condition which is well controlled Initial diagnosis - 10/2020 with an A1c of 7.0 Reviewed most recent A1c today- as shown below Lab Results Component Value Date HGBA1C 5.9 (H) 04/10/2023 HGBA1C 6.1 01/07/2023 HGBA1C 6.2 (H) 09/13/2022 Medications Currently on Metformin XR 500 mg daily (had diarrhea with higher dose) Currently on Januvia 100 mg daily was on Trulicity 1.5 mg weekly injections (but been without it for 6-7 weeks due to supply issues at pharmacy) --> change to Mounjaro 5 mg weekly injections, script sent in Monitor blood sugar 1-2 times a day. Personally reviewed blood sugar logs Maintenance Diabetic (Monofilament) foot exam - normal, completed today 12/07/2020 Annual dilated eye exams. Requesting records from [facility] [address] Annual Urine microalbumin/creatinine ratio - abnormal Lab Results Component Value Date ALBCREATRATU <7 07/09/2022 BP management B/P today - well controlled Patient is currently is on an SABA/ARB. Goal blood pressure is <140/90, long-term blood pressure goal is to be as close to 120/80 as possible. Dyslipidemia management Personally reviewed most recent LDL as shown below. Patient is on a Cholesterol lowering medication. Goal of less than 70 Currently on Lipitor 20mg daily Lab Results Component Value Date LDLCALC 72 07/09/2022 Diabetes Complications History of macrovascular disease (CVA, ND, PVD) is Present. Complications secondary to Diabetes - none Taking baby aspirin daily: No Smoking status: daily smoker Immunizations Discussed labs/ordered labs that have been ordered if applicable. Recommend a healthy low carb diet, include fresh fruits and vegetables daily. Diabetic education and nutritional counseling available if you have not had this before or annually. Recommend moving at least a total of 30 minutes/day. Just move more. 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 Personally reviewed blood sugar logs Maintenance Diabetic (Monofilament) foot exam - normal, completed today 12/07/2020 Annual dilated eye exams. Requesting records from [facility] Annual Urine microalbumin/creatinine ratio - abnormal Lab Results Component Value Date ALBCREATRATU <7 07/09/2022 BP management B/P today - well controlled Patient is currently is on an SABA/ARB. Goal blood pressure is <140/90, long-term blood pressure goal is to be as close to 120/80 as possible. Dyslipidemia management Personally reviewed most recent LDL as shown below. Patient is on a Cholesterol lowering medication. Goal of less than 70 Currently on Lipitor 20mg daily Lab Results Component Value Date LDLCALC 72 07/09/2022 Diabetes Complications History of macrovascular disease (CVA, ND, PVD) is Present. Complications secondary to Diabetes - none Taking baby aspirin daily: No Smoking status: daily smoker Immunizations Discussed labs/ordered labs that have been ordered if applicable. Recommend a healthy low carb diet, include fresh fruits and vegetables daily. Diabetic education and nutritional counseling available if you have not had this before or annually. Recommend moving at least a total of 30 minutes/day. Just move more. Assessment & Plan (01/07/2023 3:40 PM CDT): Chronic condition which is well controlled Initial diagnosis - 10/2020 with an A1c of 7.0 Reviewed most recent A1c today- as shown below Lab Results Component Value Date HGBA1C 6.1 01/07/2023 HGBA1C 6.2 (H) 09/13/2022 HGBA1C 6.6 (H) 07/09/2022 Medications Currently on Metformin XR 500 mg daily (had diarrhea with higher dose) Currently on Januvia 100 mg daily Currently on Trulicity 1.5 mg weekly injections Monitor blood sugar 1-2 times a day. Personally reviewed blood sugar logs Maintenance Diabetic (Monofilament) foot exam - normal, completed today 12/07/2020 Annual dilated eye exams. Requesting records from [facility] [employer] Annual Urine microalbumin/creatinine ratio - abnormal Lab Results Component Value Date ALBCREATRATU <7 07/09/2022 BP management B/P today - well controlled Patient is currently is on an SABA/ARB. Goal blood pressure is <140/90, long-term blood pressure goal is to be as close to 120/80 as possible. Dyslipidemia management Personally reviewed most recent LDL as shown below. Patient is on a Cholesterol lowering medication. Goal of less than 70 Currently on Lipitor 20mg daily Lab Results Component Value Date LDLCALC 72 07/09/2022 Diabetes Complications History of macrovascular disease (CVA, ND, PVD) is Present. Complications secondary to Diabetes - none Taking baby aspirin daily: No Smoking status: daily smoker Immunizations Discussed labs/ordered labs that have been ordered if applicable. Recommend a healthy low carb diet, include fresh fruits and vegetables daily. Diabetic education and nutritional counseling available if you have not had this before or annually. Recommend moving at least a total of 30 minutes/day. Just move more. Assessment & Plan (10/19/2022 8:40 PM CDT): Chronic condition which is well controlled Initial diagnosis - 10/2020 with an A1c of 7.0 Reviewed most recent A1c today- as shown below Lab Results Component Value Date HGBA1C 6.2 (H) 09/13/2022 HGBA1C 6.6 (H) 07/09/2022 HGBA1C 6.2 03/07/2022 Medications Currently on Metformin XR 500 mg daily (had diarrhea with higher dose) Currently on Januvia 100 mg daily Currently on Trulicity 0.75 mg weekly injections --> increase to Trulicity 1.5 mg weekly injections to help with weight loss Monitor blood sugar 1-2 times a day. Personally reviewed blood sugar logs Maintenance Diabetic (Monofilament) foot exam - normal, completed today 12/07/2020 Annual dilated eye exams. Scheduled for this afternoon. Annual Urine microalbumin/creatinine ratio - abnormal Lab Results Component Value Date ALBCREATRATU <7 07/09/2022 BP management B/P today - well controlled Patient is currently is on an SABA/ARB. Goal blood pressure is <140/90, long-term blood pressure goal is to be as close to 120/80 as possible. Dyslipidemia management Personally reviewed most recent LDL as shown below. Patient is on a Cholesterol lowering medication. Goal of less than 70 Currently on Lipitor 20mg daily Lab Results Component Value Date LDLCALC 72 07/09/2022 Diabetes Complications History of macrovascular disease (CVA, ND, PVD) is Present. Complications secondary to Diabetes - none Taking baby aspirin daily: No Smoking status: daily smoker Immunizations Discussed labs/ordered labs that have been ordered if applicable. Recommend a healthy low carb diet, include fresh fruits and vegetables daily. Diabetic education and nutritional counseling available if you have not had this before or annually. Recommend moving at least a total of 30 minutes/day. Just move more. Assessment & Plan (09/18/2022 9:39 AM CDT): Chronic condition which is well controlled Initial diagnosis - 10/2020 with an A1c of 7.0 Reviewed most recent A1c today- as shown below Lab Results Component Value Date HGBA1C 6.2 (H) 09/13/2022 HGBA1C 6.6 (H) 07/09/2022 HGBA1C 6.2 03/07/2022 Medications Currently on Metformin XR 500 mg daily (had diarrhea with higher dose) Currently on Januvia 100 mg daily Currently on urturn weekly Monitor blood sugar 1-2 times a day. Personally reviewed blood sugar logs Maintenance Diabetic (Monofilament) foot exam - normal, completed today 12/07/2020 Annual dilated eye exams. Scheduled for this afternoon. Annual Urine microalbumin/creatinine ratio - abnormal Lab Results Component Value Date ALBCREATRATU <7 07/09/2022 BP management B/P today - well controlled Patient is currently is on an SABA/ARB. Goal blood pressure is <140/90, long-term blood pressure goal is to be as close to 120/80 as possible. Dyslipidemia management Personally reviewed most recent LDL as shown below. Patient is on a Cholesterol lowering medication. Goal of less than 70 Currently on Lipitor 20mg daily Lab Results Component Value Date LDLCALC 72 07/09/2022 Diabetes Complications History of macrovascular disease (CVA, ND, PVD) is Present. Complications secondary to Diabetes - none Taking baby aspirin daily: No Smoking status: daily smoker Immunizations Discussed labs/ordered labs that have been ordered if applicable. Recommend a healthy low carb diet, include fresh fruits and vegetables daily. Diabetic education and nutritional counseling available if you have not had this before or annually. Recommend moving at least a total of 30 minutes/day. Just move more. 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 Personally reviewed blood sugar logs Maintenance Diabetic (Monofilament) foot exam - normal, completed today 12/07/2020 Annual dilated eye exams. Scheduled for this afternoon. Annual Urine microalbumin/creatinine ratio - abnormal Lab Results Component Value Date ALBCREATRATU <33 (H) 08/25/2021 BP management B/P today - well controlled Patient is currently is on an SABA/ARB. Goal blood pressure is <140/90, long-term blood pressure goal is to be as close to 120/80 as possible. Dyslipidemia management Personally reviewed most recent LDL as shown below. Patient is on a Cholesterol lowering medication. Goal of less than 70 Currently on Lipitor 20mg daily Lab Results Component Value Date LDLCALC 93 08/24/2021 Diabetes Complications History of macrovascular disease (CVA, ND, PVD) is Present. Complications secondary to Diabetes - none Taking baby aspirin daily: No Smoking status: daily smoker Immunizations Discussed labs/ordered labs that have been ordered if applicable. Recommend a healthy low carb diet, include fresh fruits and vegetables daily. Diabetic education and nutritional counseling available if you have not had this before or annually. Recommend moving at least a total of 30 minutes/day. Just move more. Assessment & Plan (03/07/2022 1:10 PM CDT): Chronic condition which is well controlled Initial diagnosis - 10/2020 with an A1c of 7.0 Reviewed most recent A1c today- as shown below Lab Results Component Value Date HGBA1C 6.2 03/07/2022 HGBA1C 6.2 10/03/2021 HGBA1C 6.2 (H) 03/23/2021 Medications Currently on Metformin XR 500 mg daily (had diarrhea with higher dose) Currently on Januvia 100 mg daily Currently on Trulicity weekly Monitor blood sugar 1-2 times a day. Personally reviewed blood sugar logs Maintenance Diabetic (Monofilament) foot exam - normal, completed today 12/07/2020 Annual dilated eye exams. Scheduled for this afternoon. Annual Urine microalbumin/creatinine ratio - abnormal Lab Results Component Value Date ALBCREATRATU <33 (H) 08/25/2021 BP management B/P today - well controlled Patient is currently is on an SABA/ARB. Goal blood pressure is <140/90, long-term blood pressure goal is to be as close to 120/80 as possible. Dyslipidemia management Personally reviewed most recent LDL as shown below. Patient is on a Cholesterol lowering medication. Goal of less than 70 Currently on Lipitor 20mg daily Lab Results Component Value Date LDLCALC 93 08/24/2021 Diabetes Complications History of macrovascular disease (CVA, ND, PVD) is Present. Complications secondary to Diabetes - none Taking baby aspirin daily: No Smoking status: daily smoker Immunizations Discussed labs/ordered labs that have been ordered if applicable. Recommend a healthy low carb diet, include fresh fruits and vegetables daily. Diabetic education and nutritional counseling available if you have not had this before or annually. Recommend moving at least a total of 30 minutes/day. Just move more. Assessment & Plan (12/05/2021 12:45 PM CDT): Chronic condition which is well controlled Initial diagnosis - 10/2020 with an A1c of 7.0 Reviewed most recent A1c today- as shown below Lab Results Component Value Date HGBA1C 6.2 10/03/2021 HGBA1C 6.2 (H) 03/23/2021 HGBA1C 7.0 (H) 11/09/2020 Medications Currently on Metformin XR 500 mg daily (had diarrhea with higher dose) Currently on Januvia 100 mg daily Currently on Ozempic 0.5mg weekly Monitor blood sugar 1-2 times a day. Personally reviewed blood sugar logs Maintenance Diabetic (Monofilament) foot exam - normal, completed today 12/07/2020 Annual dilated eye exams. Scheduled for this afternoon. Annual Urine microalbumin/creatinine ratio - abnormal Lab Results Component Value Date ALBCREATRATU <33 (H) 08/25/2021 BP management B/P today - well controlled Patient is currently is on an SABA/ARB. Goal blood pressure is <140/90, long-term blood pressure goal is to be as close to 120/80 as possible. Dyslipidemia management Personally reviewed most recent LDL as shown below. Patient is on a Cholesterol lowering medication. Goal of less than 70 Currently on Lipitor 20mg daily Lab Results Component Value Date LDLCALC 93 08/24/2021 Diabetes Complications History of macrovascular disease (CVA, ND, PVD) is Present. Complications secondary to Diabetes - none Taking baby aspirin daily: No Smoking status: daily smoker Immunizations Discussed labs/ordered labs that have been ordered if applicable. Recommend a healthy low carb diet, include fresh fruits and vegetables daily. Diabetic education and nutritional counseling available if you have not had this before or annually. Recommend moving at least a total of 30 minutes/day. Just move more. Assessment & Plan (10/03/2021 12:35 PM CDT): Chronic condition which is well controlled Initial diagnosis - 10/2020 with an A1c of 7.0 Reviewed most recent A1c today- as shown below Lab Results Component Value Date HGBA1C 6.2 10/03/2021 HGBA1C 6.2 (H) 03/23/2021 HGBA1C 7.0 (H) 11/09/2020 Medications Currently on Metformin XR 500 mg daily (had diarrhea with higher dose) Currently on Januvia 100 mg daily Currently on Ozempic 0.5mg weekly Monitor blood sugar 1-2 times a day. Personally reviewed blood sugar logs Maintenance Diabetic (Monofilament) foot exam - normal, completed today 12/07/2020 Annual dilated eye exams. Scheduled for this afternoon. Annual Urine microalbumin/creatinine ratio - abnormal Lab Results Component Value Date ALBCREATRATU <33 (H) 08/25/2021 BP management B/P today - well controlled Patient is currently is on an SABA/ARB. Goal blood pressure is <140/90, long-term blood pressure goal is to be as close to 120/80 as possible. Dyslipidemia management Personally reviewed most recent LDL as shown below. Patient is on a Cholesterol lowering medication. Goal of less than 70 Lab Results Component Value Date LDLCALC 93 08/24/2021 Currently on Lipitor 20mg daily Diabetes Complications History of macrovascular disease (CVA, ND, PVD) is Present. Complications secondary to Diabetes - none Taking baby aspirin daily: No Smoking status: daily smoker Immunizations Discussed labs/ordered labs that have been ordered if applicable. Recommend a healthy low carb diet, include fresh fruits and vegetables daily. Diabetic education and nutritional counseling available if you have not had this before or annually. Recommend moving at least a total of 30 minutes/day. Just move more. Assessment & Plan (09/03/2021 2:34 PM CDT): Chronic condition which is well controlled Initial diagnosis - 10/2020 with an A1c of 7.0 Reviewed most recent A1c today- as shown below Lab Results Component Value Date HGBA1C 6.2 (H) 03/23/2021 Medications Currently on Metformin XR 500 mg daily (had diarrhea with higher dose) Currently on Januvia 100 mg daily Started Ozempic on last visit, now on 0.5mg weekly to assist with weight loss as well Monitor blood sugar 1-2 times a day. Personally reviewed blood sugar logs Maintenance Diabetic (Monofilament) foot exam - normal, completed today 12/07/2020 Annual dilated eye exams. Scheduled for this afternoon. Annual Urine microalbumin/creatinine ratio - Lab Results Component Value Date ALBCREATRATU <33 (H) 08/25/2021 BP management B/P today - well controlled Patient is currently is on an SABA/ARB. Goal blood pressure is <140/90, long-term blood pressure goal is to be as close to 120/80 as possible. Dyslipidemia management Personally reviewed most recent LDL as shown below. Patient is on a Cholesterol lowering medication. Goal of less than 70 Lab Results Component Value Date LDLCALC 93 08/24/2021 Currently on Lipitor 10 mg daily --> increase to 20mg daily Diabetes Complications History of macrovascular disease (CVA, ND, PVD) is Present. Complications secondary to Diabetes - none Taking baby aspirin daily: No Smoking status: daily smoker Immunizations Discussed labs/ordered labs that have been ordered if applicable. Recommend a healthy low carb diet, include fresh fruits and vegetables daily. Diabetic education and nutritional counseling available if you have not had this before or annually. Recommend moving at least a total of 30 minutes/day. Just move more. Assessment & Plan (08/09/2021 2:03 PM CDT): Chronic condition which is well controlled Initial diagnosis - 10/2020 with an A1c of 7.0 Reviewed most recent A1c today- as shown below Lab Results Component Value Date HGBA1C 6.2 (H) 03/23/2021 Medications Currently on Metformin XR 500 mg daily (had diarrhea with higher dose) Continue Januvia 100 mg daily Monitor blood sugar 1-2 times a day. Personally reviewed blood sugar logs Maintenance Diabetic (Monofilament) foot exam - normal, completed today 12/07/2020 Annual dilated eye exams. Scheduled for this afternoon. Annual Urine microalbumin/creatinine ratio - No results found for: ALBCREATRATU BP management B/P today - well controlled Patient is currently is on an SABA/ARB. Goal blood pressure is <140/90, long-term blood pressure goal is to be as close to 120/80 as possible. Dyslipidemia management Personally reviewed most recent LDL as shown below. Patient is on a Cholesterol lowering medication. Goal of less than 70 Lab Results Component Value Date LDLCALC 62 03/23/2021 Currently on Lipitor 10 mg daily. Diabetes Complications History of macrovascular disease (CVA, ND, PVD) is Present. Complications secondary to Diabetes - none Taking baby aspirin daily: No Smoking status: daily smoker Immunizations Discussed labs/ordered labs that have been ordered if applicable. Recommend a healthy low carb diet, include fresh fruits and vegetables daily. Diabetic education and nutritional counseling available if you have not had this before or annually. Recommend moving at least a total of 30 minutes/day. Just move more. 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 Personally reviewed blood sugar logs Maintenance Diabetic (Monofilament) foot exam - normal, completed today 12/07/2020 Annual dilated eye exams. Scheduled for this afternoon. Annual Urine microalbumin/creatinine ratio - No results found for: ALBCREATRATU BP management B/P today - well controlled Patient is currently is on an SABA/ARB. Goal blood pressure is <140/90, long-term blood pressure goal is to be as close to 120/80 as possible. Dyslipidemia management Personally reviewed most recent LDL as shown below. Patient is on a Cholesterol lowering medication. Goal of less than 70 Lab Results Component Value Date LDLCALC 62 03/23/2021 Currently on Lipitor 10 mg daily. Diabetes Complications History of macrovascular disease (CVA, ND, PVD) is Present. Complications secondary to Diabetes - none Taking baby aspirin daily: No Smoking status: daily smoker Immunizations Discussed labs/ordered labs that have been ordered if applicable. Recommend a healthy low carb diet, include fresh fruits and vegetables daily. Diabetic education and nutritional counseling available if you have not had this before or annually. Recommend moving at least a total of 30 minutes/day. Just move more. Instructed to wash, dry, lotion and check feet daily. Instructed to notify office if blood sugars are less than 80 or greater than 250 for 3 days Assessment & Plan (03/23/2021 9:11 AM CDT): Chronic condition which is newly diagnosed Initial diagnosis - 10/2020 with an A1c of 7.0 Reviewed most recent A1c today- as shown below Lab Results Component Value Date HGBA1C 7.0 (H) 11/09/2020 Medications Currently on Metformin XR 500 mg daily --> increase to 1000mg daily Monitor blood sugar 1-2 times a day. Personally reviewed blood sugar logs Maintenance Diabetic (Monofilament) foot exam - normal, completed today 12/07/2020 Annual dilated eye exams. Scheduled for this afternoon. Annual Urine microalbumin/creatinine ratio - No results found for: ALBCREATRATU BP management B/P today- suboptimal Patient is currently is on an SABA/ARB. Goal blood pressure is <140/90, long-term blood pressure goal is to be as close to 120/80 as possible. Dyslipidemia management Personally reviewed most recent LDL as shown below. Patient is on a Cholesterol lowering medication. Goal of less than 70 Lab Results Component Value Date LDLCALC 106 11/09/2020 Patient will be started on Lipitor 10 mg daily. Diabetes Complications History of macrovascular disease (CVA, ND, PVD) is Present. Complications secondary to Diabetes - none Taking baby aspirin daily: No Smoking status: daily smoker Immunizations Discussed labs/ordered labs that have been ordered if applicable. Discussed eating a healthy low carb diet, include fresh fruits and vegetables daily. Diabetic education and nutritional counseling available if you have not had this before or annually. Encouraged to try moving at least a total of 30 minutes/day. Just move more. Instructed to wash, dry, lotion and check feet daily. Instructed to notify office if blood sugars are less than 80 or greater than 250 for 3 days Assessment & Plan (12/19/2020 9:45 AM CDT): Chronic condition which is newly diagnosed Initial diagnosis - 10/2020 with an A1c of 7.0 Reviewed most recent A1c today- as shown below Lab Results Component Value Date HGBA1C 7.0 (H) 11/09/2020 Medications Currently on Metformin XR 500 mg daily --> increase to 1000mg daily Monitor blood sugar 1-2 times a day. Personally reviewed blood sugar logs Maintenance Diabetic (Monofilament) foot exam - normal, completed today 12/07/2020 Annual dilated eye exams. Scheduled for this afternoon. Annual Urine microalbumin/creatinine ratio - No results found for: ALBCREATRATU BP management B/P today- suboptimal Patient is currently is on an SABA/ARB. Goal blood pressure is <140/90, long-term blood pressure goal is to be as close to 120/80 as possible. Dyslipidemia management Personally reviewed most recent LDL as shown below. Patient is on a Cholesterol lowering medication. Goal of less than 70 Lab Results Component Value Date LDLCALC 106 11/09/2020 Patient will be started on Lipitor 10 mg daily. Diabetes Complications History of macrovascular disease (CVA, ND, PVD) is Present. Complications secondary to Diabetes - none Taking baby aspirin daily: No Smoking status: daily smoker Immunizations Discussed labs/ordered labs that have been ordered if applicable. Discussed eating a healthy low carb diet, include fresh fruits and vegetables daily. Diabetic education and nutritional counseling available if you have not had this before or annually. Encouraged to try moving at least a total of 30 minutes/day. Just move more. Instructed to wash, dry, lotion and check feet daily. 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 Assessment & Plan (11/20/2022 11:57 AM CDT): - chronic, controlled - long hx of alcohol abuse - also has untreated mood disorder - currently in early remission for alcohol abuse - has established with psychiatry - used to be on Seroquel 25mg - currently on Ambien 10 mg nightly as needed for sleep - established and managed with Psychiatry - continue current management Assessment & Plan (08/07/2022 11:30 AM CDT): - chronic, well controlled - long hx of alcohol abuse - also has untreated mood disorder - currently in early remission for alcohol abuse - has established with psychiatry - takes Seroquel 25mg, established with Psychiatry - continue current management Assessment & Plan (03/07/2022 1:05 PM CDT): - chronic, well controlled - long hx of alcohol abuse - also has untreated mood disorder - currently in early remission for alcohol abuse - has established with psychiatry - takes Seroquel 250 mg PRN daily Takes Seroquel 25mg, established with Psy, make sure he contacts psychiatry for further refills in future. Assessment & Plan (12/05/2021 12:16 PM CDT): - long hx of alcohol abuse - also has untreated mood disorder - currently in early remission for alcohol abuse - has established with psychiatry - takes Seroquel 25mg PRN only Takes Seroquel 25mg, established with [facility], make sure he contacts psychiatry for further refills in future. Assessment & Plan (03/23/2021 9:25 AM CDT): - long hx of alcohol abuse - also has untreated mood disorder - currently in early remission for alcohol abuse - has established with psychiatry - takes Seroquel 25mg PRN only Assessment & Plan (11/09/2020 9:22 AM CDT): - long hx of alcohol abuse - also has untreated mood disorder - currently in early remission for alcohol abuse - will need to establish with psychiatrist - will reach out to psychiatry for this Primary osteoarthritis of left knee 11/09/2020 Assessment & Plan (07/01/2023 4:03 PM 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): - chronic, obtained XR of left knee, suspect OA - may benefit with knee injection after review of Xr --> results as shown below - based on result can try steroid injection in mean time, in future should explore surgical consultation - established with Orthopedics EXAM DESCRIPTION: XR KNEE LEFT 3 VIEWS REASON FOR STUDY: no trauma, worsening left knee pain, has known severe OA of left hip, moderate OA of right knee Chronic left knee pain for months and getting worse Pt states he is getting a hip replacement in May No surgery or injury Posterior pain and under knee cap. TECHNIQUE: 3 radiographic view(s) of the left knee . COMPARISON: None FINDINGS: There are tricompartmental degenerative changes left knee with joint space narrowing and spurring. There is ecwd-ku-cree articulation of the medial compartment with mild bony remodeling. There is near tpmf-[id number]-qmao articulation of the lateral compartment. There is no significant joint effusion. IMPRESSION: Tricompartmental degenerative changes of the left knee without definite evidence of acute displaced fracture or dislocation. Assessment & Plan (04/11/2023 8:20 AM 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): - new - obtain XR of left knee, suspect OA - may benefit with knee injection after review of Xr --> results as shown below - based on result can try steroid injection in mean time, in future should explore surgical consultation EXAM DESCRIPTION: XR KNEE LEFT 3 VIEWS REASON FOR STUDY: no trauma, worsening left knee pain, has known severe OA of left hip, moderate OA of right knee Chronic left knee pain for months and getting worse Pt states he is getting a hip replacement in May No surgery or injury Posterior pain and under knee cap. TECHNIQUE: 3 radiographic view(s) of the left knee . COMPARISON: None FINDINGS: There are tricompartmental degenerative changes left knee with joint space narrowing and spurring. There is aour-os-vfmz articulation of the medial compartment with mild bony remodeling. There is near tiqy-sr-yyvw articulation of the lateral compartment. There is no significant joint effusion. IMPRESSION: Tricompartmental degenerative changes of the left knee without definite evidence of acute displaced fracture or dislocation. Assessment & Plan (10/03/2021 12:36 PM CDT): - chronic left hip pain secondary to arthritis, controlled to some degree - already established with orthopedics, will need hip replacment, scheduled for some time in December - reviewed most recent Xr of the hip as shown below - pain management agreement signed on 07/25/2021 - currently on Hydrocodone 7.5-325 mg TID PRN for chronic left hip pain --> refill provided - S/p left hip injections on 05/17/2021, 05/02/2021, and 12/01/2020 - continue current management, reviewed PDMP with no concerning findings XR Hip Left 2 or 3 Views AP pelvis and false profile radiographs taken of the left hip today reveal moderate to severe degenerative changes with subchondral sclerosis, osteophyte formation, and diminished joint space. Assessment & Plan (11/09/2020 12:15 PM CDT): - s/p left knee arthroscopy by Dr. 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 Discussed that NSAIDs have been associated with: - increase in risk of GI bleeding and peptic ulcer - cause fluid retention and worsen congestive heart failure - worsen kidney function I recommend the following: - Using the lowest dose for the shortest possible duration - if possible switch NSAID with a different form of medication - Review patient s renal function and adjust dose accordingly - Adding a proton pump inhibitor (PPI) for GI protection for NSAID therapy >7 days - avoid using prednisone at same time as NSAIDs Class 2 severe obesity due t o excess calories with serious comorbidity and body mass index (BMI) of 38.0 to 38.9 in adult 11/09/2020 Assessment & Plan (06/30/2024 10:02 AM 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): Wt Readings from Last 3 Encounters: 06/30/24 112.4 kg (247 lb 11.2 oz) 05/14/24 111.9 kg (246 lb 12.8 oz) 02/11/24 110.7 kg (244 lb) Body mass index is 38.79 kg/m . -Stable, not at goal of <30 bmi -Discussed recommendations for exercise at least 30 minutes moderate to vigorous exercise as tolerated most days of the week. (minimum 150 minutes weekly) -Discussed importance of well-balanced diet Assessment & Plan (03/15/2024 6:01 PM CDT): Wt Readings from Last 3 Encounters: 02/11/24 110.7 kg (244 lb) 02/03/24 115.1 kg (253 lb 11.2 oz) 12/30/23 114.1 kg (251 lb 9.6 oz) Body mass index is 38.21 kg/m . - chronic, not at goal , stable with small weight loss again - BMI Follow-up includes: nutrition counseling, exercise counseling - co-morbidities - DM2, dyslipidemia - limited exercise due to chronic left hip pain, awaiting surgery - he needs to lose weight for surgery - started phentermine 37 mg daily on 09/13/2022 with weight of 290 lbs, lowest weight was 260 - Tried Trulicity for diabetes but without it for 6-7 weeks due to supply issues -> changed to Mounjaro on 06/06/2023 which has helped with significant weight loss significantly - he also has known DM2, well controlled - continue current management Assessment & Plan (01/12/2024 10:22 PM CDT): Wt Readings from Last 3 Encounters: 12/30/23 114.1 kg (251 lb 9.6 oz) 12/23/23 113.4 kg (250 lb 1.6 oz) 11/18/23 110.3 kg (243 lb 2.7 oz) Body mass index is 39.4 kg/m . - chronic, not at goal , stable - BMI Follow-up includes: nutrition counseling, exercise counseling - co-morbidities - DM2, dyslipidemia - limited exercise due to chronic left hip pain, awaiting surgery - he needs to lose weight for surgery - started phentermine 37 mg daily on 09/13/2022 with weight of 290 lbs, lowest weight was 260 - Tried Trulicity for diabetes but without it for 6-7 weeks due to supply issues -> changed to Mounjaro on 06/06/2023 which has helped with significant weight loss significantly - he also has known DM2, well controlled - continue current management Assessment & Plan (11/12/2023 4:43 PM CDT): Wt Readings from Last 3 Encounters: 11/07/23 109.5 kg (241 lb 8 oz) 08/15/23 114.9 kg (253 lb 3.2 oz) 07/01/23 119.7 kg (263 lb 14.4 oz) Body mass index is 37.82 kg/m . - chronic, not at goal but improved with medication use - BMI Follow-up includes: nutrition counseling, exercise counseling - co-morbidities - DM2, dyslipidemia - limited exercise due to chronic left hip pain, awaiting surgery - he needs to lose weight for surgery - started phentermine 37 mg daily on 09/13/2022 with weight of 290 lbs, lowest weight was 260 - Tried Trulicity for diabetes but without it for 6-7 weeks due to supply issues -> changed to Mounjaro on 06/06/2023 which has helped with significant weight loss - he also has known DM2, well controlled - continue current management Assessment & Plan (08/15/2023 10:29 AM CDT): Wt Readings from Last 3 Encounters: 08/15/23 114.9 kg (253 lb 3.2 oz) 07/01/23 119.7 kg (263 lb 14.4 oz) 06/06/23 124.9 kg (275 lb 4.8 oz) Body mass index is 39.65 kg/m . - chronic, not at goal but improved with medication use - BMI Follow-up includes: nutrition counseling, exercise counseling - co-morbidities - DM2, dyslipidemia - limited exercise due to chronic left hip pain, awaiting surgery - he needs to lose weight for surgery - started phentermine 37 mg daily on 09/13/2022 with weight of 290 lbs, lowest weight was 260 - has been on Trulicity for diabetes but without it for 6-7 weeks due to supply issues -> changed to Mounjaro on last visit 06/06/2023 which has helped, continue current management - he also has known DM2, well controlled - continue current management Assessment & Plan (07/15/2023 2:58 PM 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): Wt Readings from Last 3 Encounters: 07/01/23 119.7 kg (263 lb 14.4 oz) 06/06/23 124.9 kg (275 lb 4.8 oz) 05/24/23 122.9 kg (271 lb) Body mass index is 41.32 kg/m . - chronic, not at goal but improved - BMI Follow-up includes: nutrition counseling, exercise counseling - co-morbidities - DM2, dyslipidemia - limited exercise due to chronic left hip pain, awaiting surgery - he needs to lose weight for surgery - started phentermine 37 mg daily on 09/13/2022 with weight of 290 lbs, lowest weight was 260 - has been on Trulicity for diabetes but without it for 6-7 weeks due to supply issues -> changed to Mounjaro on last visit 06/06/2023 which has helped, continue current management - also on Trulicity as he has DM2 - continue current management Assessment & Plan (06/06/2023 3:27 PM 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): Wt Readings from Last 3 Encounters: 06/06/23 124.9 kg (275 lb 4.8 oz) 05/24/23 122.9 kg (271 lb) 05/13/23 122.9 kg (271 lb) Body mass index is 43.11 kg/m . - chronic, not at goal - BMI Follow-up includes: nutrition counseling, exercise counseling - co-morbidities - DM2, dyslipidemia - limited exercise due to chronic left hip pain, awaiting surgery - he needs to lose weight for surgery - started phentermine 37 mg daily on 09/13/2022 with weight of 290 lbs, lowest weight was 260 - has been on Trulicity for diabetes but without it for 6-7 weeks due to supply issues -> changing to Mounjaro which may also help with his weight loss - also on Trulicity as he has DM2 - continue current management Assessment & Plan (04/10/2023 9:29 AM 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): Wt Readings from Last 3 Encounters: 04/10/23 118.8 kg (262 lb) 03/05/23 118.8 kg (262 lb) 01/29/23 120.4 kg (265 lb 8 oz) Body mass index is 41.04 kg/m . - chronic, not at goal - BMI Follow-up includes: nutrition counseling, exercise counseling - co-morbidities - DM2, dyslipidemia - limited exercise due to chronic left hip pain, awaiting surgery - he needs to lose weight for surgery - started phentermine 37 mg daily on 09/13/2022 with weight of 290 lbs, now weight is 262 - also on Trulicity as he has DM2 - continue current management Assessment & Plan (01/07/2023 3:03 PM CDT): Wt Readings from Last 3 Encounters: 01/07/23 126.1 kg (278 lb) 11/20/22 128.8 kg (284 lb) 10/19/22 125.8 kg (277 lb 6.4 oz) Body mass index is 43.54 kg/m . - chronic, not at goal --> weight loss noted - BMI Follow-up includes: nutrition counseling, exercise counseling - co-morbidities - DM2, dyslipidemia - limited exercise due to chronic left hip pain, awaiting surgery - he needs to lose weight for surgery - started phentermine 37 mg daily on 09/13/2022 with weight of 290 lbs, now weight is 278 - also on Trulicity as he has DM2 - continue current management Assessment & Plan (11/20/2022 11:51 AM CDT): Wt Readings from Last 3 Encounters: 11/20/22 128.8 kg (284 lb) 10/19/22 125.8 kg (277 lb 6.4 oz) 09/18/22 127.9 kg (282 lb) Body mass index is 44.48 kg/m . - chronic, not at goal --> weight gain noted - BMI Follow-up includes: nutrition counseling, exercise counseling - limited exercise due to chronic left hip pain, awaiting surgery - he needs to lose weight for surgery - started phentermine 37 mg daily on 09/13/2022 with weight of 290 lbs, now weight is 277, but has had some weight gain since last visit - continue current management Assessment & Plan (10/19/2022 8:41 PM CDT): Wt Readings from Last 3 Encounters: 10/19/22 125.8 kg (277 lb 6.4 oz) 09/18/22 127.9 kg (282 lb) 09/13/22 131.5 kg (290 lb) Body mass index is 42.19 kg/m . - chronic, not at goal --> improved some weight loss noted - BMI Follow-up includes: nutrition counseling, exercise counseling - limited exercise due to chronic left hip pain, awaiting surgery - he needs to lose weight for surgery - started phentermine 37 mg daily on 09/13/2022 with weight of 290 lbs, now weight is 277, continues to lose weight - continue current management Assessment & Plan (09/18/2022 9:28 AM CDT): Wt Readings from Last 3 Encounters: 09/18/22 127.9 kg (282 lb) 09/13/22 131.5 kg (290 lb) 09/04/22 133.4 kg (294 lb) Body mass index is 42.88 kg/m . - chronic, not at goal --> improved some weight loss noted - BMI Follow-up includes: nutrition counseling, exercise counseling - limited exercise due to chronic left hip pain, awaiting surgery - he needs to lose weight for surgery - interested in medication assistance as his is on phentermine, start phentermine 37 mg daily, script sent in Assessment & Plan (09/17/2022 11:01 PM CDT): Wt Readings from Last 3 Encounters: 09/13/22 131.5 kg (290 lb) 09/04/22 133.4 kg (294 lb) 08/07/22 135.2 kg (298 lb) Body mass index is 44.7 kg/m . - chronic, not at goal/worse, small weight loss noted - BMI Follow-up includes: nutrition counseling, exercise counseling - limited exercise due to chronic left hip pain, awaiting surgery - he needs to lose weight for surgery - interested in medication assistance as his is on phentermine, start phentermine 37 mg daily, script sent in Assessment & Plan (08/07/2022 12:52 PM CDT): Wt Readings from Last 3 Encounters: 08/07/22 135.2 kg (298 lb) 07/17/22 (!) 137 kg (302 lb) 07/11/22 135.6 kg (299 lb) Body mass index is 45.31 kg/m . - chronic, not at goal/worse, small weight loss noted - BMI Follow-up includes: nutrition counseling, exercise counseling - limited exercise due to chronic left hip pain, awaiting surgery Assessment & Plan (07/17/2022 4:15 PM 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): Wt Readings from Last 3 Encounters: 07/17/22 (!) 137 kg (302 lb) 07/11/22 135.6 kg (299 lb) 06/14/22 134.7 kg (297 lb) Body mass index is 45.92 kg/m . - chronic, not at goal/worse, weight gain noted - BMI Follow-up includes: nutrition counseling, exercise counseling - limited exercise due to chronic left hip pain, awaiting surgery Assessment & Plan (06/14/2022 9:57 AM 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): Wt Readings from Last 3 Encounters: 06/14/22 134.7 kg (297 lb) 05/10/22 131.5 kg (290 lb) 05/07/22 131.5 kg (290 lb) Body mass index is 43.84 kg/m . - chronic, not at goal/worse, weight gain noted - BMI Follow-up includes: nutrition counseling, exercise counseling - limited exercise due to chronic left hip pain, awaiting surgery Assessment & Plan (05/14/2022 11:35 AM 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): Wt Readings from Last 3 Encounters: 05/10/22 131.5 kg (290 lb) 05/07/22 131.5 kg (290 lb) 03/07/22 134.3 kg (296 lb) Body mass index is 42.81 kg/m . - chronic, not at goal/worse, weight gain noted - BMI Follow-up includes: nutrition counseling, exercise counseling - limited exercise due to chronic left hip pain, awaiting surgery Assessment & Plan (05/10/2022 9:31 AM 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): Wt Readings from Last 3 Encounters: 05/10/22 131.5 kg (290 lb) 05/07/22 131.5 kg (290 lb) 03/07/22 134.3 kg (296 lb) Body mass index is 42.81 kg/m . - chronic, not at goal/worse, weight gain noted - BMI Follow-up includes: nutrition counseling, exercise counseling - limited exercise due to chronic left hip pain, awaiting surgery Assessment & Plan (03/07/2022 1:04 PM CDT): Wt Readings from Last 3 Encounters: 03/07/22 134.3 kg (296 lb) 01/08/22 131.8 kg (290 lb 9.1 oz) 12/05/21 129.3 kg (285 lb) Body mass index is 43.69 kg/m . - chronic, not at goal/worse, weight gain noted - BMI Follow-up includes: nutrition counseling, exercise counseling - limited exercise due to chronic left hip pain, awaiting surgery Assessment & Plan (12/05/2021 12:15 PM CDT): Wt Readings from Last 3 Encounters: 12/05/21 129.3 kg (285 lb) 10/12/21 135.4 kg (298 lb 9.6 oz) 10/10/21 134.8 kg (297 lb 3.2 oz) Body mass index is 42.07 kg/m . - chronic, not at goal but improving - BMI Follow-up includes: nutrition counseling, exercise counseling - limited exercise due to chronic left hip pain, awaiting surgery Assessment & Plan (10/12/2021 10:14 AM CDT): Wt Readings from Last 3 Encounters: 10/12/21 135.4 kg (298 lb 9.6 oz) 10/10/21 134.8 kg (297 lb 3.2 oz) 10/10/21 135.3 kg (298 lb 3.2 oz) Body mass index is 44.08 kg/m . - chronic, not at goal - BMI Follow-up includes: nutrition counseling, exercise counseling - limited exercise due to chronic left hip pain, awaiting surgery Assessment & Plan (10/03/2021 12:09 PM CDT): Wt Readings from Last 3 Encounters: 10/03/21 132.8 kg (292 lb 12.8 oz) 09/13/21 131.5 kg (290 lb) 08/25/21 132 kg (290 lb 14.4 oz) Body mass index is 42.3 kg/m . - chronic, not at goal - BMI Follow-up includes: nutrition counseling, exercise counseling and education provided Assessment & Plan (08/25/2021 11:21 AM CDT): Wt Readings from Last 3 Encounters: 08/25/21 132 kg (290 lb 14.4 oz) 08/10/21 131.5 kg (290 lb) 07/25/21 132 kg (291 lb) Body mass index is 44.23 kg/m . - chronic, not at goal - BMI Follow-up includes: nutrition counseling, exercise counseling and education provided Assessment & Plan (07/25/2021 10:43 AM 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): Wt Readings from Last 3 Encounters: 07/25/21 132 kg (291 lb) 07/14/21 (!) 137 kg (302 lb) 07/04/21 (!) 137.2 kg (302 lb 6.4 oz) Body mass index is 45.58 kg/m . - chronic, not at goal, small weight loss noted - BMI Follow-up includes: nutrition counseling, exercise counseling and education provided Assessment & Plan (05/10/2021 4:13 AM 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): Wt Readings from Last 3 Encounters: 05/05/21 135.4 kg (298 lb 8 oz) 05/02/21 135.9 kg (299 lb 9.6 oz) 04/24/21 (!) 137.2 kg (302 lb 6.4 oz) Body mass index is 46.74 kg/m . - chronic, not at goal, small weight loss noted - BMI Follow-up includes: nutrition counseling, exercise counseling and education provided Assessment & Plan (03/23/2021 9:13 AM CDT): Wt Readings from Last 3 Encounters: 03/23/21 (!) 137.2 kg (302 lb 8 oz) 03/16/21 (!) 136.2 kg (300 lb 3.2 oz) 02/28/21 (!) 137.9 kg (304 lb) Body mass index is 47.37 kg/m . - chronic, not at goal, weight gain noted - BMI Follow-up includes: nutrition counseling, exercise counseling and education provided Assessment & Plan (12/19/2020 9:46 AM CDT): Wt Readings from Last 3 Encounters: 12/07/20 (!) 136.7 kg (301 lb 6.4 oz) 12/01/20 (!) 136.2 kg (300 lb 4.8 oz) 11/09/20 134.8 kg (297 lb 1.6 oz) Body mass index is 45.84 kg/m . - weight gain noted - BMI Follow-up includes: nutrition counseling, exercise counseling and education provided Assessment & Plan (11/09/2020 9:45 AM CDT): Wt Readings from Last 3 Encounters: 11/09/20 134.8 kg (297 lb 1.6 oz) 10/14/20 134.3 kg (296 lb 1.2 oz) Body mass index is 45.18 kg/m . - BMI Follow-up includes: nutrition counseling, exercise counseling and education provided Gastroesophageal reflux disease without esophagi tis 10/15/2020 Assessment & Plan (02/03/2024 10:36 AM CDT): Continue famotidine 20 mg b.i.d. Avoid trigger foods Elevate head of bed while sleeping No eating 2-3 hours before bed Assessment & Plan (05/15/2021 1:15 PM 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): Weight loss and egd Assessment & Plan (05/05/2021 9:47 AM 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): - chronic condition, controlled - currently on Famotidine 20 mg BID - has been helping him with his symptoms with diet control - continue with current medications - has an appointment with GI on 05/15/21 Recommend the following changes: - Avoid trigger foods (such as spicy foods, fried foods, onions, peppermints, chocolate, high acid foods and juices, caffeinated beverages, carbonated beverages, and tomato based products). - Avoid alcohol take. - Avoid routine use of NSAIDs. - Avoid lying down for 2-3 hours after eating. - Weight loss encouraged. - Eat smaller meals. - Avoid tobacco use. - Sleep on left side. - may sleep with bed propped. - Avoid wearing tight clothing that puts pressure on the stomach. Assessment & Plan (11/09/2020 9:10 AM CDT): - chronic condition - he used to be on OTC medication - TUMS, Prilosec - currently on Famotidine 20 mg BID - has been helping him with his symptoms - continue with current medications Mild alcohol abuse in early remission in controlled environment 10/14/2020 Assessment & Plan (08/09/2021 2:01 PM CDT): - chronic, improved control - Hx of alcohol abuse for from age [age] - 14 years, drinking icnreased overtime to 12-16 beers/day - 1 time admission to Hospital for alcohol withdrawal in 09/2020 - no Hx of DT, Seizure disorder - he is in group meetings twice a week - no in AA - good family support as well - mother, girlfriend - currently on Vitamin B1 100mg daily, folic acid 1 mg daily - currently on Multivitamins as well - he is currently on monthly injection Vivitrol - only had it once in hospital before discharge - managed at [facility] Lab Results Component Value Date [id number] 11/09/2020 Lab Results Component Value Date FOLATE >20.0 11/09/2020 Lab Results Component Value Date ALT 65 (H) 03/23/2021 AST 64 (H) 03/23/2021 ALKPHOS 56 03/23/2021 BILITOT 0.7 03/23/2021 Assessment & Plan (11/09/2020 9:25 AM CDT): - Hx of alcohol abuse for from age [age] - 14 years, drinking icnreased overtime to 12-16 beers/day - 1 time admission to Hospital for alcohol withdrawal in 09/2020 - no Hx of DT, Seizure disorder - been almost 3 weeks sober - he is in group meetings twice a week - no in AA - good family support as well - mother, girlfriend - currently on Vitamin B1 100mg daily, folic acid 1 mg daily - currently on Multivitamins as well - he is currently on monthly injection Vivitrol - only had it once in hospital before discharge - has to go to [facility] for the injection - Vivitrol Assessment & Plan (10/14/2020 7:04 PM CDT): Patient with daily alcohol use. Patient admitted for medical stabilization with CIWA 14 on presentation with AUDIT score of 29. Patient reports he has feeling okay at this point. No significant changes since admission. He is very eager for help in alcohol cessation. Will continue to monitor. On Librium taper. Does also have medications as needed for other symptoms. Appreciate help from [facility]. Urine drug screen already completed and negative. Other laboratory work reviewed and all within acceptable range. Patient completing banana bag. Will also continue folic acid, thiamine and multivitamin. Hypertension associated with diabetes 10/14/2020 Assessment & Plan (02/11/2024 11:35 AM CDT): BP Readings from Last 3 Encounters: 02/11/24 140/80 02/03/24 140/70 12/30/23 120/84 - chronic, well controlled - currently on Losartan 100 mg daily - obesity, alcohol use disorder in mild remission - low salt diet recommend - check BP regularly at home/work - currently on phentermine for weight loss, bp is still doing well - has known YONATHAN - on CPAP - continue with current medications - has pending lab work that needs to be done, reminder provided Lab Results Component Value Date POTASSIUM 3.2 (L) 12/19/2023 . Lab Results Component Value Date SODIUM 134 (L) 12/19/2023 POTASSIUM 3.2 (L) 12/19/2023 Assessment & Plan (01/12/2024 10:21 PM CDT): BP Readings from Last 3 Encounters: 12/30/23 120/84 12/23/23 142/84 11/18/23 140/100 - chronic, well controlled - currently on Losartan 100 mg daily - obesity, alcohol use disorder in mild remission - low salt diet recommend - check BP regularly at home/work - currently on phentermine for weight loss, bp is still doing well - has known YONATHAN - on CPAP - continue with current medications Lab Results Component Value Date POTASSIUM 3.2 (L) 12/19/2023 . Lab Results Component Value Date SODIUM 134 (L) 12/19/2023 POTASSIUM 3.2 (L) 12/19/2023 Assessment & Plan (11/12/2023 4:44 PM CDT): BP Readings from Last 3 Encounters: 11/12/23 133/82 11/07/23 120/86 08/15/23 122/84 - chronic, well controlled - currently on Losartan 100 mg daily - obesity, alcohol use disorder in mild remission - low salt diet recommend - check BP regularly at home/work - currently on phentermine for weight loss, bp is still doing well - has known YONATHAN - on CPAP - continue with current medications Lab Results Component Value Date POTASSIUM 4.2 08/15/2023 . Lab Results Component Value Date SODIUM 137 08/15/2023 POTASSIUM 4.2 08/15/2023 Assessment & Plan (08/15/2023 10:27 AM CDT): BP Readings from Last 3 Encounters: 08/15/23 122/84 07/01/23 120/90 06/06/23 130/80 - chronic, well controlled - currently on Losartan 100 mg daily - obesity, alcohol use disorder in mild remission - low salt diet recommend - check BP regularly at home/work - currently on phentermine for weight loss, bp is still doing well - has known YONATHAN - on CPAP - continue with current medications Lab Results Component Value Date POTASSIUM 3.6 09/13/2022 . Lab Results Component Value Date SODIUM 133 (L) 09/13/2022 POTASSIUM 3.6 09/13/2022 Assessment & Plan (07/15/2023 2:59 PM 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): BP Readings from Last 3 Encounters: 07/01/23 120/90 06/06/23 130/80 05/24/23 142/94 - chronic, well controlled - currently on Losartan 100 mg daily - obesity, alcohol use disorder in mild remission - low salt diet recommend - check BP regularly at home/work - currently on phentermine for weight loss, bp is still doing well - has known YONATHAN - on CPAP - continue with current medications Lab Results Component Value Date POTASSIUM 3.6 09/13/2022 . Lab Results Component Value Date SODIUM 133 (L) 09/13/2022 POTASSIUM 3.6 09/13/2022 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): BP Readings from Last 3 Encounters: 06/06/23 130/80 05/24/23 142/94 05/13/23 (!) 167/107 - chronic, well controlled - currently on Losartan 100 mg daily - obesity, alcohol use disorder in mild remission - low salt diet recommend - check BP regularly at home/work - currently on phentermine for weight loss, bp is still doing well - has known YONATHAN - on CPAP - continue with current medications Lab Results Component Value Date POTASSIUM 3.6 09/13/2022 . Lab Results Component Value Date SODIUM 133 (L) 09/13/2022 POTASSIUM 3.6 09/13/2022 Assessment & Plan (04/10/2023 9:30 AM 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): BP Readings from Last 3 Encounters: 04/10/23 122/78 03/11/23 143/95 03/05/23 (!) 164/118 - chronic, well controlled - currently on Losartan 100 mg daily - obesity, alcohol use disorder in mild remission - low salt diet recommend - check BP regularly at home/work - currently on phentermine for weight loss, bp is still doing well - has known YONATHAN - recently started using his CPAP - continue with current medications Lab Results Component Value Date POTASSIUM 3.6 09/13/2022 . Lab Results Component Value Date SODIUM 133 (L) 09/13/2022 POTASSIUM 3.6 09/13/2022 Assessment & Plan (01/07/2023 2:51 PM CDT): BP Readings from Last 3 Encounters: 01/07/23 134/88 11/20/22 110/76 10/19/22 100/68 - chronic, well controlled - currently on Losartan 100 mg daily - obesity, alcohol use disorder in mild remission - low salt diet recommend - check BP regularly at home/work - currently on phentermine for weight loss, bp is still doing well - continue with current medications Lab Results Component Value Date POTASSIUM 3.6 09/13/2022 . Lab Results Component Value Date SODIUM 133 (L) 09/13/2022 POTASSIUM 3.6 09/13/2022 Assessment & Plan (11/20/2022 11:52 AM CDT): BP Readings from Last 3 Encounters: 11/20/22 110/76 10/19/22 100/68 09/18/22 118/80 - chronic, well controlled - currently on Losartan 100 mg daily - obesity, alcohol use disorder in mild remission - low salt diet recommend - check BP regularly at home/work - currently on phentermine for weight loss, bp is still doing well - continue with current medications Lab Results Component Value Date POTASSIUM 3.6 09/13/2022 . Lab Results Component Value Date SODIUM 133 (L) 09/13/2022 POTASSIUM 3.6 09/13/2022 Assessment & Plan (10/19/2022 8:41 PM CDT): BP Readings from Last 3 Encounters: 10/19/22 100/68 09/18/22 118/80 09/13/22 111/72 - chronic, well controlled - currently on Losartan 100-HCTZ 12.5mg daily --> change to Losartan 100 mg daily only - obesity, alcohol use disorder in mild remission - low salt diet recommend - check BP regularly at home/work - currently on phentermine for weight loss, bp is still doing well - continue with current medications Lab Results Component Value Date POTASSIUM 3.6 09/13/2022 . Lab Results Component Value Date SODIUM 133 (L) 09/13/2022 POTASSIUM 3.6 09/13/2022 Assessment & Plan (09/18/2022 9:30 AM CDT): - chronic, well controlled - currently on Losartan 100-HCTZ 12.5mg daily - obesity, alcohol use disorder in mild remission - low salt diet recommend - check BP regularly at home/work - currently on phentermine for weight loss, bp is still doing well - continue with current medications Lab Results Component Value Date POTASSIUM 3.6 09/13/2022 . Lab Results Component Value Date SODIUM 133 (L) 09/13/2022 POTASSIUM 3.6 09/13/2022 Assessment & Plan (09/17/2022 11:03 PM CDT): - chronic, well controlled - currently on Losartan 100-HCTZ 12.5mg daily - obesity, alcohol use disorder in mild remission - low salt diet recommend - check BP regularly at home/work - continue with current medications Lab Results Component Value Date POTASSIUM 3.6 09/13/2022 . Lab Results Component Value Date SODIUM 133 (L) 09/13/2022 POTASSIUM 3.6 09/13/2022 Assessment & Plan (06/20/2022 4:44 PM 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): - chronic, well controlled - currently on Losartan 100-HCTZ 12.5mg daily - obesity, alcohol use disorder in mild remission - low salt diet recommend - check BP regularly at home/work - continue with current medications Lab Results Component Value Date POTASSIUM 3.8 01/08/2022 . Lab Results Component Value Date SODIUM 141 01/08/2022 POTASSIUM 3.8 01/08/2022 Assessment & Plan (05/14/2022 2:28 PM 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): - chronic, well controlled - currently on Losartan 100-HCTZ 12.5mg daily - obesity, alcohol use disorder in mild remission - low salt diet recommend - check BP regularly at home/work - continue with current medications Lab Results Component Value Date POTASSIUM 3.8 01/08/2022 . Lab Results Component Value Date SODIUM 141 01/08/2022 POTASSIUM 3.8 01/08/2022 Assessment & Plan (05/10/2022 9:53 AM 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): - chronic, well controlled - currently on Losartan 100-HCTZ 12.5mg daily - obesity, alcohol use disorder in mild remission - low salt diet recommend - check BP regularly at home/work, was a bit low today, to check on his BP and to let me know if running low - continue with current medications Lab Results Component Value Date POTASSIUM 3.8 01/08/2022 . Lab Results Component Value Date SODIUM 141 01/08/2022 POTASSIUM 3.8 01/08/2022 Assessment & Plan (03/07/2022 12:56 PM CDT): - chronic, well controlled - currently on Losartan 100-HCTZ 12.5mg daily - obesity, alcohol use disorder in mild remission - low salt diet recommend - check BP regularly at home/work - continue with current medications Lab Results Component Value Date POTASSIUM 3.8 01/08/2022 . Lab Results Component Value Date SODIUM 141 01/08/2022 POTASSIUM 3.8 01/08/2022 Assessment & Plan (12/05/2021 12:43 PM CDT): - chronic, well controlled - currently on Losartan 100-HCTZ 12.5mg daily - obesity, alcohol use disorder in mild remission - low salt diet recommend - check BP regularly at home/work - continue with current medications Lab Results Component Value Date POTASSIUM 4.0 08/24/2021 . Lab Results Component Value Date SODIUM 136 08/24/2021 POTASSIUM 4.0 08/24/2021 Assessment & Plan (10/03/2021 12:39 PM CDT): - chronic, well controlled - currently on Losartan 100-HCTZ 12.5mg daily - obesity, alcohol use disorder in mild remission - low salt diet recommend - check BP regularly at home/work - continue with current medications Lab Results Component Value Date POTASSIUM 4.0 08/24/2021 . Lab Results Component Value Date SODIUM 136 08/24/2021 POTASSIUM 4.0 08/24/2021 Assessment & Plan (09/03/2021 2:33 PM CDT): - chronic, well controlled - currently on Losartan 100-HCTZ 12.5mg daily - obesity, alcohol use disorder in mild remission - low salt diet recommend - check BP regularly at home/work - continue with current medications Assessment & Plan (08/09/2021 2:00 PM CDT): - chronic, well controlled - currently on Losartan 100-HCTZ 12.5mg daily - obesity, alcohol use disorder in mild remission - low salt diet recommend - check BP regularly at home/work - continue with current medications Assessment & Plan (03/23/2021 9:16 AM CDT): - suboptimal control but better controlled, not at goal - currently on Losartan 100-HCTZ 12.5mg daily - obesity, alcohol use disorder in mild remission - low salt diet recommend - check BP regularly at home/work - continue with current medications Assessment & Plan (12/07/2020 9:55 AM CDT): - suboptimal control but better controlled, not at goal - currently on Losartan 50-HCTZ 12.5mg daily --> Increase Losartan 100-HCTZ 12.5mg daily - obesity, alcohol use disorder in mild remission - low salt diet recommend - check BP regularly at home/work Assessment & Plan (11/09/2020 9:48 AM CDT): - two episode of elevated BP - elevated on this visit as well - obesity, alcohol use disorder in mild remission - will star on an antihypertensive - low salt diet recommend - check BP regularly at home/work Assessment & Plan (10/14/2020 6:52 PM CDT): Patient with elevated blood pressure on presentation. No history of hypertension. Suspect related to alcohol withdrawal. Will monitor for now. Can give medication as needed or start scheduled medication if blood pressure remains elevated. Bipolar disorder, in partial remission, most recent episode mixed ([facility]) 10/14/2020 Assessment & Plan (11/20/2022 11:57 AM CDT): - chronic, not at goal - he does have family hx of bipolar disorder - he always self medicated - with alcohol - beer / beers a day which has cut down significantly - gets irritable, mood swings, depression from time to time, lack of sleep - following with psychiatry at [place] for mental health and alcohol use disorder - no longer on Fluoxetine --> switched to Lamictal and currently on 100 mg dialy - states no longer on Seroquel 300 mg daily --> - currently on Abilify 10 and Cymbalta 90, currently on Topiramate 50 mg am and 100 mg at night - he is on Ambien 10 mg at night for sleep - continue current management per psychiatry Assessment & Plan (08/07/2022 12:52 PM CDT): - chronic, not at goal - he does have family hx of bipolar disorder - he always self medicated - with alcohol - beer 05/09 beers a day which has cut down significantly - gets irritable, mood swings, depression from time to time, lack of sleep - following with psychiatry at [place] for mental health and alcohol use disorder - no longer on Fluoxetine --> switched to Lamictal and currently on 100 mg dialy - states no longer on Seroquel 300 mg daily --> siwtched to 25 mg nightly only, recently taken off of it and started on Aripiprazole 5 mg daily and started on Cymbalta XL 60 mg daily - reports has been started on Topamax - currently on Topiramate 100 mg BID - still on Seroquel 25 mg nightly only - continue current management per psychiatry Assessment & Plan (07/18/2022 8:28 AM 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): - chronic, controlled - he does have family hx of bipolar disorder - he always self medicated - with alcohol - beer 05/09 beers a day which has cut down significantly - denies ever having diagnosis of this - gets irritable, mood swings, depression from time to time, lack of sleep - following with psychiatry at [place] for mental health and alcohol use disorder - currently on Seroquel 300 mg daily - no longer on Fluoxetine and switched to Lamictal - continue current management per psychiatry - continue with current management Assessment & Plan (03/07/2022 1:06 PM CDT): - chronic, controlled - he does have family hx of bipolar disorder - he always self medicated - with alcohol - beer 05/09 beers a day - denies ever having diagnosis of this - gets irritable, mood swings, depression from time to time, lack of sleep - following with psychiatry at [place] for mental health and alcohol use disorder - currently on Seroquel 250 mg daily - currently on Fluoxetine 20 + 10 mg daily - continue current management per psychiatry - continue with current management Assessment & Plan (08/09/2021 2:09 PM CDT): - chronic, controlled - he does have family hx of bipolar disorder - he always self medicated - with alcohol - beer 05/09 beers a day - denies ever having diagnosis of this - gets irritable, mood swings, depression from time to time, lack of sleep - following with psychiatry at [place] for mental health and alcohol use disorder - currently on Fluoxetine 20mg daily - continue current management per psychiatry Assessment & Plan (11/09/2020 9:16 AM CDT): - he does have family hx of bipolar - he always self medicated - with alcohol - beer 05/09 beers a day - denies ever having diagnosis of this - gets irritable, mood swings, depression from time to time, lack of sleep - does not have psychiatry, never been seen - says he was managing it with alcohol - since he has cut down drinking, he feels like it is getting worse Assessment & Plan (10/14/2020 6:53 PM CDT): Patient reports he does have fluctuating mood but has never been diagnosed specifically. He does wonder if he has bipolar disorder. Suspect he has been self medicating with alcohol. Will monitor mood while here. Recommended assessing after completes alcohol withdrawal protocol. Personal history of tobacco use 10/14/2020 Assessment & Plan (08/07/2022 12:53 PM CDT): Social History Tobacco Use Smoking Status Former Packs/day: 0.15 Years: 29.00 Pack years: 4.35 Types: Cigarettes Start date: 05/27/1991 Quit date: 12/04/2021 Years since quittin.6 Smokeless Tobacco Never - chronic, improved and at goal - has been told that he needs to be nicotine free to get the left hip replacement surgery - he has been abstinence from nicotine containing tobacco and was doing nicotine free cigarette, and now doing nicotine free e-cig - discussed importance of tobacco smoking cessation Assessment & Plan (06/20/2022 4:48 PM 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): Social History Tobacco Use Smoking Status Former Packs/day: 0.15 Years: 29.00 Pack years: 4.35 Types: Cigarettes Start date: 05/27/1991 Quit date: 12/04/2021 Years since quittin.5 Smokeless Tobacco Never - chronic, not at goal - has been told that he needs to be nicotine free to get the left hip replacement surgery so has been cutting down and has switched to a zero nicotine cigarette from [employer] - discussed importance of tobacco smoking cessation - continue with tapering down Assessment & Plan (05/10/2022 9:34 AM 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): Social History Tobacco Use Smoking Status Former Packs/day: 0.15 Years: 29.00 Pack years: 4.35 Types: Cigarettes Start date: 05/27/1991 Quit date: 12/04/2021 Years since quittin.4 Smokeless Tobacco Never - chronic, not at goal - has been told that he needs to be nicotine free to get the left hip replacement surgery so has been cutting down with goal of nicotine free for at least 6 weeks - discussed importance of tobacco smoking cessation - continue with tapering down Assessment & Plan (10/03/2021 12:38 PM CDT): Social History Tobacco Use Smoking Status Current Every Day Smoker Packs/day: 1.50 Years: 29.00 Pack years: 43.50 Types: Cigarettes Start date: 05/27/1991 Smokeless Tobacco Never Used - chronic, not at goal - has been told that he needs to be nicotine free to get the left hip replacement surgery so has been cutting down with goal of nicotine free for at least 6 weeks - continue with tapering down Assessment & Plan (12/07/2020 9:42 AM CDT): Social History Tobacco Use Smoking Status Current Every Day Smoker Packs/day: 1.50 Years: 29.00 Pack years: 43.50 Types: Cigarettes Start date: 05/27/1991 Smokeless Tobacco Never Used - has been on nicotine patch, but recently ran out of it - currently smoking 6-7 cigarettes/day, with the patch 1-2 cigarettes - doing good job - refill provided for patches Assessment & Plan (11/09/2020 9:14 AM CDT): Social History Tobacco Use Smoking Status Current Every Day Smoker Packs/day: 1.50 Years: 29.00 Pack years: 43.50 Types: Cigarettes Start date: 05/27/1991 Smokeless Tobacco Never Used - has been on nicotine patch for the past 3 weeks - currently smoking 6-7 cigarettes/day - attempting to cut down with the patch - continue as it seems to be working Assessment & Plan (10/14/2020 6:53 PM CDT): Tobacco cessation encouraged. Will place nicotine patch while here. Resolved Problems Problem Noted Date Diagnosed Date Resolved Date Rectal bleeding 05/15/2021 12/05/2021 Overview (05/15/2021): Added automatically from request for surgery [id number] Blood in stool 05/10/2021 12/05/2021 Assessment & Plan (05/15/2021 1:14 PM 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): Colooscopy Assessment & Plan (05/10/2021 4:19 AM 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): - new condition being addressed - reports has been going on for over a year or more - offered to do rectal exam but declines - he already has an appointment with GI in 10 days so I have asked him to bring up this issue - will likely need rectal exam +/- colonoscopy given length of time this has been going on - most recent Hgb level as shown below Lab Results Component Value Date HGB 16.3 10/14/2020 Type 2 diabetes mellitus wit h hyperglycemia (CMS/HCC) 12/12/2020 01/07/2023 Trochanteric bursitis of left hip 11/09/2020 10/03/2021 Assessment & Plan (07/25/2021 10:44 AM 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): - XR of left hip in file, no acute findings - seen in ED, started on tramadol, Steroid therapy still having discomfort - s/p corticosteroid injection 6 days ago - some improvement in pain, but has pain with motion - would benefit with some physical therapy - referral placed Assessment & Plan (12/07/2020 9:56 AM CDT): - XR of left hip in file, no acute findings - seen in ED, started on tramadol, Steroid therapy still having discomfort - s/p corticosteroid injection 6 days ago - some improvement in pain, but has pain with motion - would benefit with some physical therapy - referral placed Assessment & Plan (11/09/2020 12:17 PM CDT): - XR of left hip in file, no acute findings - seen in ED, started on tramadol, Steroid therapy still having discomfort - discussed options including steroid injection which he is interested - will see if it can be done here in our office or with orthopedics Shortness of breath 11/09/2020 01/12/20 24 Assessment & Plan (03/23/2021 9:20 AM CDT): - shortness of breath with wheezing - better but not at goal - long hx of smoking, 43pk/years - quitting smoking with nicotine patches and making big progress - CXR obtained due to hx of empyema - scarring of right lung XR chest - 11/14 - Mild scarring at the right lung base. Blunting of right costophrenic angle - wheezing improved since he was started on Symbicort, albuterol PRN - established with Pulmonology - had CT chest completed - PFT with 6 min walk test 11/23/2020: Spirometry data does not demonstrate any evidence of obstruction or significant improvement post bronchodilator therapy. Lung volumes demonstrate restrictive ventilatory impairment. DLCO is mildly reduced compatible with diffusion impairment. Findings can be seen with pulmonary parenchymal / pulmonary vascular disorders. Suggest clinical correlation. 6 minute walk test was performed. Patient maintained oxygen saturation within normal range and did not require supplemental oxygen with rest or ambulation - discussed no signs of obstruction, likely scarring is impacting his diffusion Assessment & Plan (12/19/2020 9:47 AM CDT): - shortness of breath with wheezing - better but not at goal - long hx of smoking, 43pk/years - quitting smoking with nicotine patches and making big progress - CXR obtained due to hx of empyema - scarring of right lung XR chest - 11/14 - Mild scarring at the right lung base. Blunting of right costophrenic angle - wheezing improved since he was started on Symbicort, albuterol PRN - PFT with 6 min walk test 11/23/2020: Spirometry data does not demonstrate any evidence of obstruction or significant improvement post bronchodilator therapy. Lung volumes demonstrate restrictive ventilatory impairment. DLCO is mildly reduced compatible with diffusion impairment. Findings can be seen with pulmonary parenchymal / pulmonary vascular disorders. Suggest clinical correlation. 6 minute walk test was performed. Patient maintained oxygen saturation within normal range and did not require supplemental oxygen with rest or ambulation - discussed no signs of obstruction, likely scarring is impacting his diffusion - he would like further evaluation, will refer to pulmonology Assessment & Plan (11/09/2020 12:18 PM CDT): - shortness of breath with wheezing - long hx of smoking, 43pk/years - currently attempting to quit smoking with nicotine patches and making progress - will obtain PFT - obtain CXR due to hx of empyema - scarring of right lung - will start on Symbicort in mean time Encounters Date Type Department Care Team Description 07/08/2024 Telephone [facility] Primary Care at [address] [place] [address] Fabrizio Boone MD 06/30/2024 9:30 AM 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 Office Visit [facility] Primary Care at [address] [place] [address] Jen Perez NP Chronic left hip pain (Primary Dx); 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 current use of 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 analgesic; Diabetic peripheral neuropathy associated with type 2 diabetes mellitus (CMS/HCC) (HCC); Type 2 diabetes mellitus with diabetic polyneuropathy, without long-term current use of insulin (HCC); Class 2 severe obesity due to excess calories with serious comorbidity and body mass index (BMI) of 38.0 to 38.9 in adult ([facility]) 06/10/2024 Telephone [facility] Primary Care at [address] [place] [address] Fabrizio Boone MD 05/19/2024 Telephone [facility] Primary Care at [address] [place] [address] Gisselle Matthews MA Chart Review ([facility]) 05/14/2024 11:00 AM 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 Office Visit [facility] [address] [facility] [address] [place] [address] Leola Celaya MD YONATHAN (obstructive sleep apnea) (Primary Dx); Hypersomnia with sleep apnea; Morbid obesity with BMI of 45.0-49.9, adult ([facility]) from Last 3 Months Immunizations Immunization Administration Dates Next Due Influenza Virus Vaccine Trivalent Mdv 01/28/2024 Influenza, Quadrivalent, Spl it, Preservative Free, Intramuscular 06/06/2023,03/07/2022 Influenza, Unspecified 06/06/2023(Deferr ed: Patient Refused),02/24/2021(Deferred: Patient Refused),02/24/2021(Deferred: Patient Refused),02/24/2021(Deferred: Patient Refused),02/25/2020(Deferred: Patient Refused),02/25/2020(Deferred: Patient Refused),02/25/2020(Deferred: Patient Refused),02/25/2020(Deferred: Patient Refused),02/25/2020(Deferred: Patient Refused) Surgical History Surgery Date Site/Laterality Comments OTHER SURGICAL HISTORY S/P pneumonia: oral antibiotic therapy - sent to see Dr. Melyssa Leyva [place] FLUORO GUIDED INJECTION H IP LEFT 02/01/2021 Left [place] FLUORO GUIDED INJECTION H IP LEFT 05/17/2021 Left COLONOSCOPY 07/14/2021 1st [place] FLUORO GUIDED INJECTION H IP LEFT 08/18/2021 Left KNEE ARTHROPLASTY Bilateral Medical History Medical History Date Comments Hx Other Medical 2013 S/P pneumonia Alcohol dependence (HCC) 10/14/2020 Hypertension Diabetes mellitus (HCC) Sleep apnea Cigarette nicotine dependence in remission 02/02 Family History Medical History Relation Name Comments Heart failure Father CHF; Cause of : CHF Other Mother Alive and well; Anesthesia problems Neg Hx Relation Name Status Comments Father Mother Alive Social History Tobacco Use Types Packs/Day Years Used Date Smoking Tobacco: Former Cigarettes 1 31 0 05/27/1991 - 05/2022 Smokeless Tobacco: Never Tobacco Cessation:Counseling Given: Yes Alcohol Use Standard Drinks/Week Comments Yes 0 (1 standard drink = 0.6 oz pur e alcohol) AUDIT-C Answer Date Recorded Q1: How often do you have a drink containing alcohol? Never 02/11/2024 Q2: How many drinks containi ng alcohol do you have on a typical day when you are drinking? Patient does not drink Q3: How often do you have si x or more drinks on one occasion? Never 02/11/2024 PHQ-2 Answer Date Recorded PHQ-2 Total Score (If total score is 3 or more points, staff should administer the PHQ-9) 0 06/30/2024 Personal Safety Answer Date Recorded Have you ever been in or are you currently in a harmful physical or emotional relationship or is someone making you feel afraid or unsafe? 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 Gender Identity Not on file Sexual Orientation Straight 11/08/2020 6: 40 PM CDT Obstetrics History Last Filed Vital Signs Vital Sign Reading Time Taken Comments Blood Pressure 140/82 06/30/2024 9:40 AM 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 Pulse 111 06/30/2024 9:40 AM 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 Temperature 36.7 C (98 F) 02/11/2024 10:53 AM CDT Respiratory Rate 16 06/30/2024 9:40 AM 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 Oxygen Saturation 98% 06/30/2024 9:40 AM 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 Inhaled Oxygen Concentration - - Weight 112.4 kg (247 lb 11.2 oz) 06/30/2024 9:40 AM 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 Height 170.2 cm (5' 7.01 ) 06/30/2024 9:40 AM CS T Body Mass Index 38.79 06/30/2024 9:40 AM 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 Plan of Treatment Health Maintenance Due Date Last Done Comments Pneumococcal vaccine <65 (1 of 2 - PCV) 1984 DTaP/Tdap/Td Vaccine (1 - Tdap) 1989 Hepatitis B Screening 1996 Foot Exam 06/14/2023 06/14/2022, 12/07/2020 Hemoglobin A1C 06/20/2024 12/19/2023, 0305/2023, 04/10/2023, Additional history exists Albumin Creatinine Ratio, Urine 08/14/2024 08/15/2023, 07/09/2022, 08/25/2021 Lipid Panel 08/14/2024 08/15/2023, 06/27, 08/24/2021, Additional history exists Regular Well Visit/Exam 18-64 11/06/2024 11/07/2023, 06/14/2022 Dilated Eye Exam 12/11/2024 12/11/2022, 12/07/2020 eGFR 12/18/2024 12/19/2023, 07/26, 09/13/2022, Additional history exists Depression Screening 06/30/2025 06/30/2024, 02/11/2024, 12/30/2023, Additional history exists Colon Cancer Screening-Colonoscopy 07/14/2031 07/14/2021 Hepatitis C Screening Completed 10/14/2020 Influenza Vaccine Completed 01/28/2024, , 03/07/2022 HPV Vaccines Aged Out No longer eligi ble based on patient's age to complete this topic Goals Goal Patient Goal Type Associated Problems Recent Progress Patient-Stated? Author sobriety from alcohol General Yes Rupal Rojas Procedures Procedure Name Priority Date/Time Associated Diagnosis Comments EGFR Routine 12/19/2023 10:48 AM CDT Pre-operative exam HEMOGLOBIN A1C Routine 12/19/2023 10:48 AM CDT Pre-operative exam ALBUMIN CREATININE RATIO, URINE Routine 08/15/2023 12:04 PM CDT Type 2 diabetes mellitus with diabetic polyneuropathy, without long-term current use of insulin (CMS/HCC) (HCC) LIPID PANEL Routine 08/15/2023 11:27 AM CDT Type 2 diabetes mellitus with diabetic polyneuropathy, without long-term current use of insulin (CMS/HCC) (HCC) DIABETIC EYE EXAM Routine 12/11/2022 COLONOSCOPY 07/14/2021 10:42 AM 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 HEPATITIS C ANTIBODY STAT 10/14/2020 2:55 PM CDT from Last 3 Months or Most Recently Relevant to Health Maintenance Results * eGFR (12/19/2023 10:48 AM CDT) eGFR >90 >=60 mL/min/1. 73 m2 Comment: Interpretive Data Reference Interval Normal >/= 90 mL/min/1.73m2 Mildly decreased* 60 - 89 mL/min/1.73m2 Mildly to moderately decreased 45 - 59 mL/min/1.73m2 Moderately to severely decreased 30 - 44 mL/min/1.73m2 Severely decreased 15 - 29 mL/min/1.73m2 Kidney Failure < 15 mL/min/1.73m2 *Relative to young adult level Estimated glomerular filtration rate is determined by the 2020 CKD-EPI equation recommended by the National Kidney Foundation (A Unifying Approach to GFR Estimation: Recommendations of the NKF-ASK Task Force on Reassessing the Inclusion of Race in Diagnosing Kidney Disease, JASN 2020). The CKD-EPI equation should not be used for patients with unstable renal function and has not been validated in children and those over 70. Current interpretive data was last reviewed 2021. Blood 12/19/2023 10:4 8 AM CDT 12/19/2023 2:32 PM CDT us Suleman Crenshaw MD LAB BLOOD ORDERABLES Fin al Result [facility] ([place]) 1 [facility] [place] [address] * (ABNORMAL) Hemoglobin A1c (12/19/2023 10:48 AM CDT) Hgb A1C 5.7(H) 4.0 - 5.6 % Estimated Average Glucose 117 mg/dL [facility] ([place]) Comment: The ADA recommends reporting an estimated Average Glucose (eAG) with all Hemoglobin A1c results using the equation derived from a study of 507 normal and diabetic adults. Minority populations were underrepresented and children were not included. (Diabetes Care 31:8567-1407, 2008). The eAG is not equivalent to a fasting glucose. Blood 12/19/2023 10:4 8 AM CDT 12/19/2023 2:32 PM CDT Suleman Crenshaw MD LAB BLOOD ORDERABLES Fin al Result Performing Organization Address City/[facility] Co de Phone Number ROM [facility] ([place]) 1 [facility] [place] [address] * Albumin Creatinine Ratio, Urine (08/15/2023 12:04 PM CDT) Albumin Ur 16.0 mg/L Comment: Interpretive Data No reference range established. Current interpretive data was last revised 2018. Creatinine Ur 428.1 mg/dL ROM Comment: Interpretive Data No reference range established. Current interpretive data was last revised 2018. Albumin Creatinine Ratio, Ur 4 1 - 29 mg/g ROM Urine 08/15/2023 12:0 4 PM CDT 08/15/2023 8:48 PM CDT us Fabrizio Boone MD LAB URINE ORDERABLES Fi nal Result Performing Organization Address City/[facility]/ZIP Co de Phone Number [facility] [id number] [address] [place] [address] * (ABNORMAL) Lipid panel (08/15/2023 11:27 AM CDT) Cholesterol 175 30 - 199 mg/dL Comment: Interpretive Data Ages < or = 19 years Acceptable: <170 mg/dL Borderline high: 170-199 mg/dL High: >or= 200 mg/dL Ages > or = 20 years Desirable: <200 mg/dL Borderline high: 200-239 mg/dL High: >or= 240 mg/dL Literature References: 1. Expert Panel on Integrated Guidelines for Cardiovascular Health and Risk Reduction in Children and Adolescents. Pediatrics 2011;128:S213 2. NCEP Expert Panel. Circulation 2004;110:227 Current Interpretive Data was last revised on 2018. Triglycerides 156(H) <=149 mg/dL [facility] ([place]) Comment: Interpretive Data Ages < or = 9 years Acceptable: <75 mg/dL Borderline high: 75-99 mg/dL High: >or= 100 mg/dL Ages 10 to 20 years Acceptable: <90 mg/dL Borderline high: 90-129 mg/dL High: >or= 130 mg/dL Ages > or = 20 years Desirable: <150 mg/dL Borderline high: 150-199 mg/dL High: 200-499 mg/dL Very high: >or= 499 mg/dL Literature References: 1. Expert Panel on Integrated Guidelines for Cardiovascular Health and Risk Reduction in Children and Adolescents. Pediatrics 2011;128:S213 2. NCEP Expert Panel. Circulation 2004;110:227 Current Interpretive Data was last revised on 2018. HDL 36(L) >=40 mg/dL [facility] ([place]) Comment: Interpretive Data Ages < or = 19 years Acceptable: >45 mg/dL Borderline low: 40-45 mg/dL Low: <40 mg/dL Ages > or = 20 years Desirable: >or= 60 mg/dL Low: <40 mg/dL Literature References: 1. Expert Panel on Integrated Guidelines for Cardiovascular Health and Risk Reduction in Children and Adolescents. Pediatrics 2011;128:S213 2. NCEP Expert Panel. Circulation 2004;110:227 Current Interpretive Data was last revised on 2018. LDL, calculated 108 <=129 mg/dL [facility] ([place]) Comment: Interpretive Data Ages < or = 19 years Acceptable: <110 mg/dL Borderline high: 110-129 mg/dL High: >or= 130 mg/dL Ages > or = 20 years Optimal: <100 mg/dL Near optimal: 100-129 mg/dL Borderline high: 130-159 mg/dL High: >160 mg/dL Literature References: 1. Expert Panel on Integrated Guidelines for Cardiovascular Health and Risk Reduction in Children and Adolescents. Pediatrics 2011;128:S213 2. NCEP Expert Panel. Circulation 2004;110:227 Current Interpretive Data was last revised on 2018. Non-HDL Cholesterol 139 mg/dL [facility] ([place]) Comment: Interpretive Data Ages < or = 19 years Acceptable: <120 mg/dL Borderline high: 120-144 mg/dL High: >145 mg/dL Ages > or = 20 years When triglycerides are >200 mg/dL, Non-HDL cholesterol is a secondary target of therapy with treatment goals that are 30 mg/dL greater than the LDL cholesterol target. Literature References: 1. Expert Panel on Integrated Guidelines for Cardiovascular Health and Risk Reduction in Children and Adolescents. Pediatrics 2011;128:S213 2. NCEP Expert Panel. Circulation 2004;110:227 Current Interpretive Data was last revised on 2018. Chol/HDL ratio 5 [facility] ([place]) Blood 08/15/2023 11:2 7 AM CDT 08/15/2023 1:49 PM CDT Narrative [facility] ([place]) - 08/15/2023 2:09 PM CDT Has the patient been fasting for 8 hours or more?->No us Fabrizio Boone MD LAB BLOOD ORDERABLES Fi nal Result [facility] ([place]) 1 [facility] Department of Laboratories [place], [place] [id number] * Diabetic Eye Exam (12/11/2022) us Generic External Data Provider HEALTH MAINTENANC E Final Result * COLONOSCOPY (07/14/2021 10:42 AM 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) Anatomical Region Laterality Modality Other Narrative Procedure Note Jt Ochoa MD - 07/14/2021 10:42 AM CST [facility] Patient Name: Moses Mtz Procedure Date: 07/14/2021 10:42 AM Date of : 1980 Admit Type: Outpatient Age: 41 Gender: Male Attending MD: Jt Ochoa M.D. Room: [facility] ENDOSCOPY ROOM 2 Note Status: Finalized Patient Profile: Refer to note in patient chart for documentation of history and physical. Procedure: Colonoscopy Indications: This is the patient's first colonoscopy Referring MD: Providers: Jt Ochoa M.D. Impression: - Preparation of the colon was poor. - Hemorrhoids found on perianal exam. - Stool in the rectum, in the descending colon, inthe ascending colon and in the cecum. - The examination was otherwise normal. - No specimens collected. Recommendation: - Discharge patient to home. - Resume previous diet. - Continue present medications. - Repeat colonoscopy in 5 years for screeningpurposes. - Return to primary care physician as previously scheduled. Medicines: Propofol per Anesthesia Complications: No immediate complications. Estimated Blood Loss: Estimated blood loss: none. Procedure: Pre-Anesthesia Assessment: - This assessment was completed [Time ofAssessment] prior to the administration of sedation. - This assessment was completed [Time ofAssessment] prior to the administration of sedation. The benefits, risks and alternatives of theprocedure and sedation were discussed and informed consentwas obtained. All questions were answered. Please referto the signed informed consent document in the medical record. The bowel preparation used was Miralax via single dose instruction. The bowel preparation used was bisacodyl tablets via single dose instruction.The scope was passed under direct vision. TheColonoscope [id number] was introduced through the anus and advanced to the the cecum, identified by appendiceal orifice and ileocecal valve. The colonoscopy was performed without difficulty. The patient tolerated the procedure well. The qualityof the bowel preparation was poor. Findings: Hemorrhoids were found on perianal exam. A moderate amount of solid stool was found in the rectum, in the descending colon, in the ascending colon and in the cecum,interfering with visualization. The exam was otherwise without abnormality. Electronically signed by Jt Ochoa M.D. Jt Ochoa M.D. 07/14/2021 11:48:14 AM Number of Addenda: 0 Note Initiated On: 07/14/2021 10:42 AM Procedure Code(s): --- Professional --- 76765, Colonoscopy, flexible; diagnostic, including collection of specimen(s) by brushing or washing, when performed (separateprocedure) Diagnosis Code(s): --- Professional --- K64.9, Unspecified hemorrhoids CPT copyright 2019 [employer]. All rights reserved. The codes documented in this report are preliminary and upon hcc coders reviewmay be revised to meet current compliance requirements. Recognized by the [place] [employer] for promoting quality in endoscopy Jt Ochoa MD ENDOSCOPY PROCEDURES Final Re sult * Hepatitis C antibody (10/14/2020 2:55 PM CDT) Hep C Ab Nonreactive Nonreactive [facility] ([place]) Comment: Interpretive Data Nonreactive: Antibodies to HCV not detected. Does NOT exclude the possibility of recent exposure to HCV. Equivocal: Equivocal for HCV antibodies. Supplemental molecular testing will be automatically performed to determine infection status in accordance with current CDC screening recommendations. Reactive: Positive for HCV antibodies. This may represent current or past HCV infection. Supplemental molecular testing will be automatically performed to determine current infection status in accordance with current CDC screening recommendations. Interpretive data was last revised on 2019. Testing performed by: [facility], [address] [place] [address], [place]., [address] Blood specimen (specimen) 10/14/2020 2:55 PM CDT 10/14/2020 7:05 PM CDT Emma Mitchell MD LAB MICROBIOLOGY - GENERA L ORDERABLES Final Result [facility] ([place]) 1 [facility] Department [place] [address] from Last 3 Months or Most Recently Relevant to Health Maintenance Insurance [facility] Address: [address] [address] [place] [address] MEDICARE [facility] Address: [facility] [address] [place] [address] Advance Directives For more information, please contact: [phone] * Full Code (Latest Code Status on File) Date Activated Date Inactivated Comments 07/14/2021 10:21 AM 07/14/2021 4:39 PM * Full Code Date Activated Date Inactivated Comments 07/14/2021 10:21 AM 07/14/2021 10:21 AM * Full Code Date Activated Date Inactivated Comments 10/14/2020 2:42 PM 10/17/2020 7:41 PM Care Teams Tenter Frame Operator Relationship Specialty Start Date End Date Fabrizio Boone MD PCP - General Family Medicine 11/09/20 Miscellaneous, Not In File 10/17/20 Leola Celaya MD Consulting Physician Neurology 06/14/22 Brett Russ MD [address] [place] [address] [place] [address] Referring Physician Internal Medicine 07/01/23
--- OUTSIDE RECORDS SUMMARY | 2024-07-12 19:46 | XMS_ITS | Clinical Summary ---
Author Organization [facility] Address [address] [place] [address] Phone Care Team Providers Care Web Content Coordinator Name Role Phone Provider, None Primary Care Provider Unavailabl e Allergies Active Allergy Reactions Criticality Noted Date Comments Penicillins Hives 01/28/2018 Medications azithromycin (ZITHROMAX Z-BEATRICE) 250 MG Tablet 2 tab(s) daily for 1 day, then 1 tab(s) daily for days 2-5. 6 Tab 8 Active albuterol 108 (90 Base) MCG/ACT Aerosol Solution take 2 Puffs by inhalation every 6 hours as needed for Cough. 1 Inhaler 1 Active methylPREDNISol one (MEDROL DOSPACK) 4 MG Tablet Therapy Pack See product package insert for dosing schedule 21 Tablet 1 Active traMADol (ULTRAM) 50 MG Tablet Take 1 Tablet by mouth every 6 hours as needed for Moderate or more severe pain. 15 Tablet 1 Active traMADol (ULTRAM) 50 MG TabletIndicatio ns:Osteoarthrit is of left hip Take 1 Tablet by mouth every 6 hours as needed for Moderate or more severe pain. 20 Tablet 1 Active Social History Tobacco Use Types Packs/Day Years Used Date Smoking Tobacco: Every Day Cigarettes Smokeless Tobacco: Never Alcohol Use Standard Drinks/Week Comments Yes 0 (1 standard drink = 0.6 oz pur e alcohol) social Sex and Gender Information Value Date Recorded Sex Assigned at Not on file Legal Sex Male 10:55 PM CDT Gender Identity Not on file Sexual Orientation Not on file Last Filed Vital Signs Vital Sign Reading Time Taken Comments Blood Pressure 127/83 05/09/2022 10:33 PM CHASER TAR Pulse 100 05/09/2022 10:33 PM CHASER TAR Temperature 36.4 C (97.5 F) 05/09/2022 10:33 PM CHASER TAR Respiratory Rate 16 05/09/2022 10:33 PM CHASER TAR Oxygen Saturation 98% 05/09/2022 10:33 PM CHASER TAR Inhaled Oxygen Concentration - - Weight 131.5 kg (290 lb) 05/09/2022 10:33 PM CHASER TAR Height 172.7 cm (5' 8 ) 05/09/2022 10:33 PM CHASER TAR Body Mass Index 44.09 05/09/2022 10:33 PM CHASER TAR Plan of Treatment Health Maintenance Due Date Last Done Comments Hepatitis C Virus (HCV) Screening 1980 TdaP Immunization 1980 Hepatitis B Immunization (1 of 3 - 19+ 3-dose series) 1997 Colonoscopy 2023 Colorectal Cancer Screening 2023 Influenza Immunization (#1) 2024 03/07/2022 SARS-COV-2 Immunization (2023-25 season) 2024 Respiratory Syncytial Virus (RSV) Immunization (Adult) (1 - 1-dose 75+ series) 2053 Meningococcal Immunization (ACWY) Aged Out No longer eligible based on patient's age to complete this topic Pneumococcal Immunization Combined Aged Out No longer eligible based on patient's age to complete this topic Rotavirus Immunization Aged Out No lo nger eligible based on patient's age to complete this topic Insurance MEDICAID [place] MED[employer]ID [employer] Care Teams Web Content Coordinator Relationship Specialty Start Date End Date Provider, None [place] PCP - General 01/29/18
--- OUTSIDE RECORDS SUMMARY | 2024-07-12 19:46 | XMS_ITS | Encounter Summary ---
Author Organization [facility] Healthcare Address [address] [place] [address] Care Team Providers Care Herbicide Sprayer Name Role Phone Miscellaneous, Not In File Unavailable Unava ilable Fabrizio Boone MD Primary Care Provider Leola Celaya MD Unavailable Reason for Visit * Diagnostic Imaging (Routine) - Closed Specialty Diagnoses / Procedures Referred By Brennen hart Referred To Contact Diagnoses Left hip pain Procedures XR Hip Left 2 or 3 Views Suleman Crenshaw MD [address] [place] [address] [address], [place] [address] Phone: tel: Referral ID Status Reason Start Date Expiration Date Visits Re quested Visits Authorized [id number] Closed 03/05/2023 04/03/2024 1 1 Encounter Details Date Type Department Care Team (Late st Contact Info) Description 03/05/2023 7:45 AM CDT Hospital Encounter [facility] Medical Group Orthopedics and Sports Medicine [address] [place] [address] [place] [phone] Social History Tobacco Use Types Packs/Day Years Used Date Smoking Tobacco: Former Cigarettes 1 31 0 05/27/1991 - 05/2022 Smokeless Tobacco: Never Alcohol Use Standard Drinks/Week [...] on file 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 Never 02/11/2024 10:59 AM CDT Macy Jones MA Q2: How many drinks containing alcohol do you have on a typical day when you are drinking? Patient does not drink 02/11/2024 10:59 AM CDT Macy Jones MA Q3: How often do you have six or more drinks on one occasion? Never 02/11/2024 10:59 AM CDT Macy Jones MA documented as of this encounter Plan of Treatment Pending Results Name Type Priority Associated Diagnoses Date /Time XR Hip Left 2 or 3 Views Imaging Schedule Routine, Read Routine (OP Routine) Left hip pain 03/05/2023 11:02 AM CDT documented as of this encounter Goals Goal Patient Goal Type Associated Problems Recent Progress Patient-Stated? Author sobriety from alcohol General Yes Rupal Rojas documented as of this encounter Visit Diagnoses Not on filedocumented in this encounter Care Teams Herbicide Sprayer Relationship Specialty Start Date End Date Fabrizio Boone MD PCP - General Family Medicine 11/09/20 Miscellaneous, Not In File 10/17/20 Leola Celaya MD Consulting Physician Neurology 06/14/22 documented as of this encounter
--- OUTSIDE RECORDS SUMMARY | 2024-07-12 19:46 | XMS_ITS | Referral Summary ---
Author Organization [facility] Address [address] [place] [address] Care Team Providers Care Director News Name Role Phone Miscellaneous, Not In File Unavailable Unava ilable Fabrizio Boone MD Primary Care Provider Leola Celaya MD Unavailable Brett Russ MD Unavailable [phone] Encounters Date Type Department Care Team Description 07/08/2024 Telephone [facility] Primary Care at [address] [phone] Fabrizio Boone MD 06/30/2024 9:30 AM BUSHEL WORKER Office Visit [facility] Primary Care at [address] [phone] Jen Perez, KOMAL Chronic left hip pain (Primary Dx); 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; Diabetic peripheral neuropathy associated with type 2 diabetes mellitus (CMS/HCC) (HCC); Type 2 diabetes mellitus with diabetic polyneuropathy, without long-term current use of insulin (HCC); Class 2 severe obesity due to excess calories with serious comorbidity and body mass index (BMI) of 38.0 to 38.9 in adult (HCC) 06/10/2024 Telephone [facility] Primary Care at [address] [address] Fabrizio Boone MD 05/19/2024 Telephone [facility] Primary Care at [address] [phone] Gisselle Matthews MA Chart Review (MED [facility]HERENCE) 05/14/2024 11:00 AM BUSHEL WORKER Office [place] [facility] [address] [facility] [address] [place] [phone] Leola Cleaya MD YONATHAN (obstructive sleep apnea) (Primary Dx); Hypersomnia with sleep apnea; Morbid obesity with BMI of 45.0-49.9, adult ([facility]) from Last 3 Months Allergies Active Allergy Reactions Criticality Noted Date [...] polyneuropathy, without long-term current use of insulin ([facility]),Dyslipide paulino associated with type 2 diabetes mellitus ([facility]) TAKE 1 TABLET BY MOUTH EVERY DAY [...] 100 mg tabletIndicatio ns:Hypertension associated with diabetes ([facility]) TAKE 1 TABLET BY MOUTH EVERY DAY 90 tablet 3 10/04/19 24 Active gabapentin (NEURONTIN) 300 mg capsuleIndicati ons:Diabetic peripheral neuropathy associated with type 2 diabetes mellitus (CMS/HCC) ([facility]) Take 1 capsule (300 mg total) by mouth 2 (two) times a day 180 capsule 1 12/04/19 24 Active SITagliptin phosphate (JANUVIA) 50 mg tabletIndicatio ns:type 2 diabetes mellitus Take 1 tablet (50 mg total) by mouth daily 90 tablet 1 01/31/20 24 025 Active tiotropium-olod ateroL (Stiolto Respimat) 2.5-2.5 mcg/actuation inhalerIndicati ons:Chronic obstructive pulmonary disease, unspecified COPD type (HCC) Inhale 2 puffs daily 1 each 11 [...] Component Value Date POTASSIUM 3.2 (L) 12/19/2023 assisted current use of opiate analgesic 2023 Overview (03/15/2024): see plan under chronic left hip pain secondary to osteoarthritis Assessment & Plan (06/30/2024 10:12 AM BUSHEL WORKER): -Chronic, controlled -Currently takes [place] 7.5-325 mg as needed for chronic left [...] Symbicort but has been changed by 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 Primary osteoarthritis of left hip 10/26/2021 Overview (10/26/2021): Added automatically from request for surgery [id number] Dyslipidemia associated with type 2 diabetes han [...] 03/23/2021 Assessment & Plan (06/20/2022 4:44 PM BUSHEL WORKER): - chronic, not at goal - has [...] 07/25/2021 Assessment & Plan (06/30/2024 10:14 AM BUSHEL WORKER): -Chronic, suboptimally controlled -Currently takes [place] 7.5-325 mg as needed, gabapentin 300 mg [...] space. Assessment & Plan (06/06/2023 3:44 PM BUSHEL WORKER): - chronic left hip pain secondary to [...] space. Assessment & Plan (04/10/2023 9:33 AM BUSHEL WORKER): - chronic left hip pain secondary to [...] space. Assessment & Plan (07/18/2022 8:27 AM BUSHEL WORKER): - chronic left hip pain secondary to [...] space. Assessment & Plan (06/14/2022 10:02 AM BUSHEL WORKER): - chronic left hip pain secondary to [...] space. Assessment & Plan (05/10/2022 9:32 AM BUSHEL WORKER): - chronic left hip pain secondary to [...] hy associated with type 2 diabetes mellitus ([facility]) 05/05/2021 Assessment & Plan (06/30/2024 10:16 AM BUSHEL WORKER): -chronic, controlled -associated with type 2 diabetes -currently takes gabapentin 300 mg b.i.d. -patient reports adequate relief with current regimen -reiterated importance of regular diabetic foot exams and close monitoring of skin where neuropathy affects them -refill of medication provided -continue current treatment plan Assessment & Plan (06/14/2022 9:57 AM BUSHEL WORKER): - chronic, better controlled - was having [...] 03/23/2021 Assessment & Plan (05/05/2021 9:38 AM BUSHEL WORKER): - new, uncontrolled - has been having [...] management Assessment & Plan (04/10/2023 9:30 AM BUSHEL WORKER): - chronic, diagnosed on 03/2022 - has [...] 11/10/2020 Assessment & Plan (06/30/2024 10:12 AM BUSHEL WORKER): Lab Results Component Value Date HGBA1C 5.7 [...] Diabetes Complications History of macrovascular disease (CVA, MS, PVD) is Present. Complications secondary to Diabetes [...] eye exams. Requesting eye exam records from [employer] [place] Last eye exam Annual Urine microalbumin/creatinine ratio [...] Diabetes Complications History of macrovascular disease (CVA, MS, PVD) is Present. Complications secondary to Diabetes [...] eye exams. Requesting eye exam records from [employer] [place] Last eye exam Annual Urine [...] Diabetes Complications History of macrovascular disease (CVA, MS, PVD) is Present. Complications secondary to Diabetes [...] eye exams. Requesting eye exam records from [employer] [place] Last eye exam Annual Urine [...] Diabetes Complications History of macrovascular disease (CVA, MS, PVD) is Present. Complications secondary to Diabetes [...] more. Assessment & Plan (07/15/2023 3:02 PM BUSHEL WORKER): Chronic condition which is well controlled Initial [...] eye exams. Requesting eye exam records from [employer] [place] Last eye exam Annual Urine [...] Diabetes Complications History of macrovascular disease (CVA, MS, PVD) is Present. Complications secondary to Diabetes [...] more. Assessment & Plan (06/06/2023 3:27 PM BUSHEL WORKER): Chronic condition which is well controlled Initial [...] Annual dilated eye exams. Requesting records from [employer] [place] Annual Urine microalbumin/creatinine ratio - abnormal Lab [...] Diabetes Complications History of macrovascular disease (CVA, MS, PVD) is Present. Complications secondary to Diabetes [...] more. Assessment & Plan (04/10/2023 9:31 AM BUSHEL WORKER): Chronic condition which is well controlled, recheck [...] Annual dilated eye exams. Requesting records from [employer] [facility] [place] Annual Urine microalbumin/creatinine ratio - abnormal Lab [...] Diabetes Complications History of macrovascular disease (CVA, MS, PVD) is Present. Complications secondary to Diabetes [...] Annual dilated eye exams. Requesting records from [facility] [place] Annual Urine microalbumin/creatinine ratio - abnormal Lab [...] Diabetes Complications History of macrovascular disease (CVA, MS, PVD) is Present. Complications secondary to Diabetes [...] Diabetes Complications History of macrovascular disease (CVA, MS, PVD) is Present. Complications secondary to Diabetes [...] on Januvia 100 mg daily Currently on Leevia weekly Monitor blood sugar 1-2 times a [...] Diabetes Complications History of macrovascular disease (CVA, MS, PVD) is Present. Complications secondary to Diabetes [...] more. Assessment & Plan (06/20/2022 4:44 PM BUSHEL WORKER): Chronic condition which is well controlled Initial [...] Diabetes Complications History of macrovascular disease (CVA, MS, PVD) is Present. Complications secondary to Diabetes [...] Diabetes Complications History of macrovascular disease (CVA, MS, PVD) is Present. Complications secondary to Diabetes [...] Diabetes Complications History of macrovascular disease (CVA, MS, PVD) is Present. Complications secondary to Diabetes [...] Diabetes Complications History of macrovascular disease (CVA, MS, PVD) is Present. Complications secondary to Diabetes [...] Diabetes Complications History of macrovascular disease (CVA, MS, PVD) is Present. Complications secondary to Diabetes [...] Diabetes Complications History of macrovascular disease (CVA, MS, PVD) is Present. Complications secondary to Diabetes [...] more. Assessment & Plan (05/10/2021 4:17 AM BUSHEL WORKER): Chronic condition which is well controlled Initial [...] Diabetes Complications History of macrovascular disease (CVA, MS, PVD) is Present. Complications secondary to Diabetes [...] Diabetes Complications History of macrovascular disease (CVA, MS, PVD) is Present. Complications secondary to Diabetes [...] Diabetes Complications History of macrovascular disease (CVA, MS, PVD) is Present. Complications secondary to Diabetes [...] 11/09/2020 Assessment & Plan (07/01/2023 4:03 PM BUSHEL WORKER): - chronic, obtained XR of left knee, [...] joint space narrowing and spurring. There is hgqk-ww-ocns articulation of the medial compartment with mild bony remodeling. There is near yofg-qr-vwlx articulation of the lateral compartment. There is no significant joint effusion. IMPRESSION: Tricompartmental degenerative changes of the left knee without definite evidence of acute displaced fracture or dislocation. Assessment & Plan (04/11/2023 8:20 AM BUSHEL WORKER): - new - obtain XR of left [...] joint space narrowing and spurring. There is zact-qz-ddmz articulation of the medial compartment with mild bony remodeling. There is near gbbi-hb-epyw articulation of the lateral compartment. There is [...] discussed risk of daily use of NSAID assisted (current) use of n on-steroidal anti-inflammatories (nsaid) 11/09/2020 Assessment & Plan (11/09/2020 9:48 AM CDT): Patient has been noted to have meterman current use of NSAIDs. Discussed that NSAIDs [...] 11/09/2020 Assessment & Plan (06/30/2024 10:02 AM BUSHEL WORKER): Wt Readings from Last 3 Encounters: 06/30/24 [...] management Assessment & Plan (07/15/2023 2:58 PM BUSHEL WORKER): Wt Readings from Last 3 Encounters: 07/01/23 [...] management Assessment & Plan (06/06/2023 3:27 PM BUSHEL WORKER): Wt Readings from Last 3 Encounters: 06/06/23 [...] management Assessment & Plan (04/10/2023 9:29 AM BUSHEL WORKER): Wt Readings from Last 3 Encounters: 04/10/23 [...] surgery Assessment & Plan (07/17/2022 4:15 PM BUSHEL WORKER): Wt Readings from Last 3 Encounters: 07/17/22 (!) 137 kg (302 lb) 07/11/22 135.6 kg (299 lb) 06/14/22 134.7 kg (297 lb) Body mass index is 45.92 kg/m . - chronic, not at goal/worse, weight gain noted - BMI Follow-up includes: nutrition counseling, exercise counseling - limited exercise due to chronic left hip pain, awaiting surgery Assessment & Plan (06/14/2022 9:57 AM BUSHEL WORKER): Wt Readings from Last 3 Encounters: 06/14/22 134.7 kg (297 lb) 05/10/22 131.5 kg (290 lb) 05/07/22 131.5 kg (290 lb) Body mass index is 43.84 kg/m . - chronic, not at goal/worse, weight gain noted - BMI Follow-up includes: nutrition counseling, exercise counseling - limited exercise due to chronic left hip pain, awaiting surgery Assessment & Plan (05/14/2022 11:35 AM BUSHEL WORKER): Wt Readings from Last 3 Encounters: 05/10/22 131.5 kg (290 lb) 05/07/22 131.5 kg (290 lb) 03/07/22 134.3 kg (296 lb) Body mass index is 42.81 kg/m . - chronic, not at goal/worse, weight gain noted - BMI Follow-up includes: nutrition counseling, exercise counseling - limited exercise due to chronic left hip pain, awaiting surgery Assessment & Plan (05/10/2022 9:31 AM BUSHEL WORKER): Wt Readings from Last 3 Encounters: 05/10/22 [...] provided Assessment & Plan (07/25/2021 10:43 AM BUSHEL WORKER): Wt Readings from Last 3 Encounters: 07/25/21 132 kg (291 lb) 07/14/21 (!) 137 kg (302 lb) 07/04/21 (!) 137.2 kg (302 lb 6.4 oz) Body mass index is 45.58 kg/m . - chronic, not at goal, small weight loss noted - BMI Follow-up includes: nutrition counseling, exercise counseling and education provided Assessment & Plan (05/10/2021 4:13 AM BUSHEL WORKER): Wt Readings from Last 3 Encounters: 05/05/21 [...] bed Assessment & Plan (05/15/2021 1:15 PM BUSHEL WORKER): Weight loss and egd Assessment & Plan (05/05/2021 9:47 AM BUSHEL WORKER): - chronic condition, controlled - currently on [...] used to be on OTC medication - TUMS Prilosec - currently on Famotidine 20 mg [...] in hospital before discharge - managed at [facility] Lab Results Component Value Date [id number] [...] before discharge - has to go to [place] for the injection - Vivitrol Assessment & [...] 09/13/2022 Assessment & Plan (07/15/2023 2:59 PM BUSHEL WORKER): BP Readings from Last 3 Encounters: 07/01/23 [...] 09/13/2022 Assessment & Plan (06/06/2023 3:44 PM BUSHEL WORKER): BP Readings from Last 3 Encounters: 06/06/23 [...] 09/13/2022 Assessment & Plan (04/10/2023 9:30 AM BUSHEL WORKER): BP Readings from Last 3 Encounters: 04/10/23 [...] 09/13/2022 Assessment & Plan (06/20/2022 4:44 PM BUSHEL WORKER): - chronic, well controlled - currently on Losartan 100-HCTZ 12.5mg daily - obesity, alcohol use disorder in mild remission - low salt diet recommend - check BP regularly at home/work - continue with current medications Lab Results Component Value Date POTASSIUM 3.8 01/08/2022 . Lab Results Component Value Date SODIUM 141 01/08/2022 POTASSIUM 3.8 01/08/2022 Assessment & Plan (05/14/2022 2:28 PM BUSHEL WORKER): - chronic, well controlled - currently on Losartan 100-HCTZ 12.5mg daily - obesity, alcohol use disorder in mild remission - low salt diet recommend - check BP regularly at home/work - continue with current medications Lab Results Component Value Date POTASSIUM 3.8 01/08/2022 . Lab Results Component Value Date SODIUM 141 01/08/2022 POTASSIUM 3.8 01/08/2022 Assessment & Plan (05/10/2022 9:53 AM BUSHEL WORKER): - chronic, well controlled - currently on [...] in partial remission, most recent episode mixed ([facility]) 10/14/2020 Assessment & Plan (11/20/2022 11:57 AM CDT): - chronic, not at goal - he does have family hx of bipolar disorder - he always self medicated - with alcohol - beer 05/09 beers a day which has cut down significantly - gets irritable, mood swings, depression from time to time, lack of sleep - following with psychiatry at [place] for mental health and alcohol use disorder [...] self medicated - with alcohol - beer 12/14 beers a day which has cut down significantly - gets irritable, mood swings, depression from time to time, lack of sleep - following with psychiatry at [place] for mental health and alcohol use disorder [...] psychiatry Assessment & Plan (07/18/2022 8:28 AM BUSHEL WORKER): - chronic, controlled - he does have family hx of bipolar disorder - he always self medicated - with alcohol - beer 14 beers a day which has cut down significantly - denies ever having diagnosis of this - gets irritable, mood swings, depression from time to time, lack of sleep - following with psychiatry at [place] for mental health and alcohol use disorder - currently on Seroquel 300 mg daily - no longer on Fluoxetine and switched to Lamictal - continue current management per psychiatry - continue with current management Assessment & Plan (03/07/2022 1:06 PM CDT): - chronic, controlled - he does have family hx of bipolar disorder - he always self medicated - with alcohol - beer 12/14 beers a day - denies ever having diagnosis of this - gets irritable, mood swings, depression from time to time, lack of sleep - following with psychiatry at [place] for mental health and alcohol use disorder [...] of sleep - following with psychiatry at [place] for mental health and alcohol use disorder [...] cessation Assessment & Plan (06/20/2022 4:48 PM BUSHEL WORKER): Social History Tobacco Use Smoking Status Former [...] switched to a zero nicotine cigarette from [employer] - discussed importance of tobacco smoking cessation - continue with tapering down Assessment & Plan (05/10/2022 9:34 AM BUSHEL WORKER): Social History Tobacco Use Smoking Status Former [...] (05/15/2021): Added automatically from request for surgery [id number] Blood in stool 05/10/2021 12/05/2021 Assessment & Plan (05/15/2021 1:14 PM BUSHEL WORKER): Colooscopy Assessment & Plan (05/10/2021 4:19 AM BUSHEL WORKER): - new condition being addressed - reports [...] Type 2 diabetes mellitus wit h hyperglycemia ([facility]) 12/12/2020 01/07/2023 Trochanteric bursitis of left hip 11/09/2020 10/03/2021 Assessment & Plan (07/25/2021 10:44 AM BUSHEL WORKER): - XR of left hip in file, [...] will start on Symbicort in mean time Immunizations Immunization Administration Dates Next Due Influenza Virus Vaccine Trivalent Mdv 01/28/2024 Influenza, Quadrivalent, Spl it, Preservative Free, Intramuscular 06/06/2023,03/07/2022 Influenza, Unspecified 06/06/2023(Deferr ed: Patient Refused),02/24/2021(Deferred: Patient Refused),02/24/2021(Deferred: Patient Refused),02/24/2021(Deferred: Patient Refused),02/25/2020(Deferred: Patient Refused),02/25/2020(Deferred: Patient Refused),02/25/2020(Deferred: Patient Refused),02/25/2020(Deferred: Patient Refused),02/25/2020(Deferred: Patient Refused) Social History Tobacco Use Types Packs/Day Years [...] on file Legal Sex Male 8:44 AM BUSHEL WORKER Gender Identity Not on file Sexual Orientation Straight 11/08/2020 6: 40 PM CDT Last Filed Vital Signs Vital Sign Reading Time Taken Comments Blood Pressure 140/82 06/30/2024 9:40 AM BUSHEL WORKER Pulse 111 06/30/2024 9:40 AM BUSHEL WORKER Temperature 36.7 C (98 F) 02/11/2024 10:53 AM CDT Respiratory Rate 16 06/30/2024 9:40 AM BUSHEL WORKER Oxygen Saturation 98% 06/30/2024 9:40 AM BUSHEL WORKER Inhaled Oxygen Concentration - - Weight 112.4 kg (247 lb 11.2 oz) 06/30/2024 9:40 AM BUSHEL WORKER Height 170.2 cm (5' 7.01 ) 06/30/2024 9:40 AM CS T Body Mass Index 38.79 06/30/2024 9:40 AM BUSHEL WORKER Plan of Treatment Not on file Goals Goal Patient Goal Type Associated Problems [...] polyneuropathy, without long-term current use of insulin ([facility]/HCC) ([facility]) LIPID PANEL Routine 08/15/2023 11:27 AM CDT Type 2 diabetes mellitus with diabetic polyneuropathy, without long-term current use of insulin (CMS/HCC) ([facility]) DIABETIC EYE EXAM Routine 12/11/2022 COLONOSCOPY 07/14/2021 10:42 AM BUSHEL WORKER HEPATITIS C ANTIBODY STAT 10/14/2020 2:55 PM [...] BLOOD ORDERABLES Fin al Result [facility] ([place]) [address] [facility] Department [place] [address] * (ABNORMAL) Hemoglobin A1c (12/19/2023 10:48 AM CDT) Hgb A1C 5.7(H) 4.0 - 5.6 % Estimated Average Glucose 117 mg/dL [facility] ([place]) Comment: The ADA recommends reporting an estimated Average Glucose (eAG) with all Hemoglobin A1c results using the equation derived from a study of 507 normal and diabetic adults. Minority populations were underrepresented and children were not included. (Diabetes Care 31:7899-6380, 2008). The eAG is not equivalent to a fasting glucose. Blood 12/19/2023 10:4 8 AM CDT 12/19/2023 2:32 PM CDT Suleman Crenshaw MD LAB BLOOD ORDERABLES Fin al Result [facility] ([place] [address] [facility] Department [place] [address] * Albumin Creatinine Ratio, Urine (08/15/2023 12:04 [...] ORDERABLES Fi nal Result Performing Organization Address City/[facility]/ZIP Co de Phone Number ROM [id number] [place] [address] * (ABNORMAL) Lipid panel (08/15/2023 11:27 AM [...] Pediatrics 2011;128:S213 2. NCEP Expert Panel. Circulation 2003;110:227 Current Interpretive Data was last revised on [...] 2018. Non-HDL Cholesterol 139 mg/dL [facility] ([place]) Comment: Interpretive Data [...] on 2018. Chol/HDL ratio 5 [facility] ([place]) Blood 08/15/2023 11:2 7 AM CDT 08/15/2023 1:49 PM CDT Narrative [facility] ([place]) - 08/15/2023 2:09 PM CDT Has the patient been fasting for 8 hours or more?->No us Fabrizio Boone MD LAB BLOOD ORDERABLES Fi nal Result [facility] ([place]) [address] [facility] Department [place] [address] * Diabetic Eye Exam (12/11/2022) us Generic External Data Provider HEALTH MAINTENANC E Final Result * COLONOSCOPY (07/14/2021 10:42 AM BUSHEL WORKER) Anatomical Region Laterality Modality Other Narrative Procedure Note Jt Ochoa MD - 07/14/2021 10:42 AM CST [facility] Patient Name: Moses Mtz Procedure Date: 07/14/2021 10:42 AM Date of : 1980 Admit Type: Outpatient Age: 41 Gender: Male Attending MD: Jt Ochoa M.D. Room: [facility] RO[facility] 2 Note Status: Finalized Patient [...] scope was passed under direct vision. TheColonoscope [id number] was introduced through the anus and advanced [...] 10:42 AM Procedure Code(s): --- Professional --- 33832, Colonoscopy, flexible; diagnostic, including collection of specimen(s) by brushing or washing, when performed (separateprocedure) Diagnosis Code(s): --- Professional --- K64.9, Unspecified hemorrhoids CPT copyright 2019 [employer]. All rights reserved. The codes documented in this report are preliminary and upon baseball glove shaper reviewmay be revised to meet current compliance requirements. Recognized by the [employer] for promoting quality [...] last revised on 2019. Testing performed by: [facility], [address] [place] [address], [place]., [address] Blood specimen (specimen) 10/14/2020 2:55 PM CDT 10/14/2020 7:05 PM CDT Emma Mitchell MD LAB MICROBIOLOGY - GENERA L ORDERABLES Final Result [facility] ([place]) [address] [facility] Department [place] [address] from Last 3 Months or Most Recently Relevant to Health Maintenance Insurance [facility] MEDIC[employer] SOLUTIONS MEDICARE SOLUTIONS Advance Directives For more information, please contact: [phone] * Full Code (Latest Code Status on File) Date Activated Date Inactivated Comments 07/14/2021 10:21 AM 07/14/2021 4:39 PM * Full Code Date Activated Date Inactivated Comments 07/14/2021 10:21 AM 07/14/2021 10:21 AM * Full Code Date Activated Date Inactivated Comments 10/14/2020 2:42 PM 10/17/2020 7:41 PM Care Teams Director News Relationship Specialty Start Date End Date Fabrizio Boone MD PCP - General Family Medicine 11/09/20 Miscellaneous, Not In File 10/17/20 Leola Celaya MD Consulting Physician Neurology 06/14/22 Brett Russ MD [address] [place] [address] [place] [address] Referring Physician Internal Medicine 07/01/23
[2024-07-12 19:50] VITALS: BP 155/102; PULSE 114; RESP 16; TEMP 36.1; O2SAT 100
--- OUTSIDE RECORDS SUMMARY | 2024-07-12 19:50 | XMS_ITS | Patient Health Record ---
Author Organization [facility] Address [address] [place] [address] Care Team Providers Care Apiculturist Name Role Phone Brett Russ Primary Care Provider Gilson Aguirre Unavailable [phone] Allergies Allergen (clinical drug ingredient) Drug/Non Drug Allergy documented on EMR Reaction Allergy Type Onset Date Status Penicillin Unknown Drug Allergy Active Reason For Referral No Information Medications Medication SIG (Take, Route, Frequency, Duration) Notes Start Date End Date Status TEST STRIPS, FORMULARY ANY DIRECTED VIA METER DIRECTED for 30 12/12/2020 Active Meloxicam 15 MG 1 tablet Orally Once a day for 30 day(s) Active Aleve 220 MG 1 tablet with food o r milk as needed Orally every 12 hrs Not-Taking Lipitor 10 MG 1 tablet Orally Once a day for 30 day(s) Active Topiramate 100 MG 1 tablet Orally Twic e a day for 30 days Active Symbicort 80-4.5 MCG/ACT 2 puffs Inhalat ion Once a day Active DULoxetine HCl 60 MG 1 capsule in am Ora lly Once a day for 30 days Active Losartan Potassium-HCTZ 50-12.5 MG 1 tablet Orally Once a day for 30 day(s) Active DULoxetine HCl 30 MG 1 capsule in PM Ora lly Once a day for 30 days Active Alcohol Pads 70 % as directed external ly once daily 12/12/2020 Active Thiamine HCl 100 MG 1 tablet Orally Once a day for 30 day(s) Active OneTouch Verio - USE TO TEST BLOOD MONTELONGO GAR ONCE DAILY for 50 Active Folic Acid 1 MG 1 tablet Orally Once a day for 30 day(s) Active Triazolam 0.25 MG 1 tablet at bedtime Orally Once a day. for 30 days As needed for insomnia 11/05/2023 Active metFORMIN HCl 500 MG 1 tablet with a eva l Orally Once a day for 30 day(s) Active ARIPiprazole 10 MG 1 tablet Orally Once a day for 30 days Active Nicotine 21 MG/24HR 1 patch to skin Transdermal Once a day for 30 day(s) Active lamoTRIgine 100 MG 1 tablet Orally Once a day for 30 days Active Famotidine 20 MG 1 tablet Orally Twic e a day Active Lancet Device - as directed external ly once daily 12/12/2020 Active ProAir HFA 108 (90 Base) MCG/ACT 2 puff as needed Inhalation every 6 hrs Active Social History Tobacco Use: Social History Observation Description Date Details (start date - stop date) Current Smoker NA - NA Sex Assigned At : Social History Observation Description Sex Assigned At Male Dont use, Tobacco Use/Smoking Question Answer Notes Are you a current every day smoker Additional Findings: Tobacco User Moderate cigar ette smoker (10-19 cigs/day) Problems Problem Type SNOMED Code ICD Code Onset Dates Problem Status W/U Status Risk Notes Problem Morbid obesity (disorder) (111059336) Morbid (severe) obesity due to excess calories (E66.01) Active confirmed Problem 946709400 MDD (major depressive disorder), recurrent episode, moderate (F33.1) Active confirmed Problem Insomnia (138304503) Insomnia disorder (G47.00) Active confirmed Problem 65328186 Essential hypertension (I10) 1 Active confirmed Problem 94150948 Bipolar affectiv e disorder, remission status unspecified (F31.9) 1 Active confirmed Problem Cyclothymia (95578803) 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) Active confirmed Problem 72460750 Type 2 diabetes mellitus with hyperglycemia, without long-term current use of insulin (E11.65) 1 Active confirmed Problem Tobacco use (780837168) Tobacco use disorder (F17.200) Active confirmed Problem 647821103 Alcohol related disorder (F10.99) 1 Active confirmed Problem 80091171 Alcohol abuse with physiological dependence (F10.20) Active confirmed Encounters Encounter Location Date Provider Diagnosis [address] [address] 07/17/2023 Gilson Aguirre Bipolar affective disorder, remission status unspecified F31.9 and Insomnia disorder G47.[address] [address] 08/13/2023 Gilson Aguirre Bipolar affective disorder, remission status unspecified F31.9 and Insomnia disorder G47.[address] [place] [address] 09/10/2023 Gilson Aguirre Bipolar affective disorder, remission status unspecified F31.9 and Insomnia disorder G47.[address] [address] 10/08/2023 Gilson Aguirre Bipolar affective disorder, remission status unspecified F31.9 and Insomnia disorder G47.[address] [address] 11/05/2023 Gilson Aguirre Bipolar affective disorder, remission status unspecified F31.9 and Insomnia disorder G47.[address] [address] 07/30/2023 Gilson Aguirre [address] [address] 08/13/2023 Gilson Aguirre Insomnia disorder G47.[address] [address] 09/02/2023 Gilson Aguirre Assessments Encounter Date Diagnosis (ICD Code) Assessment Notes Treatment Notes Treatment Clinical Notes Section Notes 09/10/2023 Bipolar affective disorder, remission status unspecified (ICD-10 - F31.9) Client doing well, no treatment plan changes needed except to switch back to triazolam now that PA approval has been issued. 08/13/2023 Insomnia disorder (ICD-10 - G47.00) 08/13/2023 Insomnia disorder (ICD-10 - G47.00) Client agreeable to trial of Halcion for sleep as this is covered by insurance and Ambien no longer working. Client states mantaining sleep hygiene at high level and wearing CPAP machine, has long history of sleep issues which in part lead to his history of alcohol disorder (not current - does not use alcohol now). No other changes needed to treatment plan as client doing well overall. 08/13/2023 Bipolar affective disorder, remission status unspecified (ICD-10 - F31.9) Client agreeable to trial of Halcion for sleep as this is covered by insurance and Ambien no longer working. Client states mantaining sleep hygiene at high level and wearing CPAP machine, has long history of sleep issues which in part lead to his history of alcohol disorder (not current - does not use alcohol now). No other changes needed to treatment plan as client doing well overall. 10/08/2023 Bipolar affective disorder, remission status unspecified (ICD-10 - F31.9) Client doing well, no treatment plan changes needed. 07/17/2023 Insomnia disorder (ICD-10 - G47.00) Client agreeable to switch to ER ambien to see if better control for insomnia. No other changes to treatment plan. 07/17/2023 Bipolar affective disorder, remission status unspecified (ICD-10 - F31.9) Client agreeable to switch to ER ambien to see if better control for insomnia. No other changes to treatment plan. 11/05/2023 Bipolar affective disorder, remission status unspecified (ICD-10 - F31.9) Client doing well, no treatment plan changes needed. 09/10/2023 Insomnia disorder (ICD-10 - G47.00) Client doing well, no treatment plan changes needed except to switch back to triazolam now that PA approval has been issued. 10/08/2023 Insomnia disorder (ICD-10 - G47.00) Client doing well, no treatment plan changes needed. 11/05/2023 Insomnia disorder (ICD-10 - G47.00) Client doing well, no treatment plan changes needed. [place]2023 [place]. Discussed sleep hygiene and caffeine intake with encouragement to limit electronic devices an hour before bed and to limit caffeine after 3:00pm. Exercise benefits for mood and health discussed. Psychoeducation regarding psychiatric illness provided. Client was educated about risks and benefits of medication, alternatives to medication, off label uses of medication, suicidal ideation with SSRIs, self-administratio n and compliance with medication along with how to safely store medication. Verbal informed consent obtained. Client agrees to return sooner if symptoms worsen or if suicidal or homicidal ideations occur. Client has the phone number to the 24-hour crisis line at [facility]. Questions addressed. Client verbalized understanding of all information and is agreeable to treatment plan. Client agreeable to switch to ER ambien to see if better control for insomnia. No other changes to treatment plan. 08/13/2023 [place]. Discussed sleep hygiene and caffeine intake with encouragement to limit electronic devices an hour before bed and to limit caffeine after 3:00pm. Exercise benefits for mood and health discussed. Psychoeducation regarding psychiatric illness provided. Client was educated about risks and benefits of medication, alternatives to medication, off label uses of medication, suicidal ideation with SSRIs, self-administratio n and compliance with medication along with how to safely store medication. Verbal informed consent obtained. Client agrees to return sooner if symptoms worsen or if suicidal or homicidal ideations occur. Client has the phone number to the 24-hour crisis line at [facility]. Questions addressed. Client verbalized understanding of all information and is agreeable to treatment plan. Client agreeable to trial of Halcion for sleep as this is covered by insurance and Ambien no longer working. Client states mantaining sleep hygiene at high level and wearing CPAP machine, has long history of sleep issues which in part lead to his history of alcohol disorder (not current - does not use alcohol now). No other changes needed to treatment plan as client doing well overall. 09/10/2023 [place]. Client does receive hydrocodone and gabapentin from another provider for chronic pain and knows to take this medication several hours apart from sleep medication due to risk of respiratory depression. Discussed sleep hygiene and caffeine intake with encouragement to limit electronic devices an hour before bed and to limit caffeine after 3:00pm. Exercise benefits for mood and health discussed. Psychoeducation regarding psychiatric illness provided. Client was educated about risks and benefits of medication, alternatives to medication, off label uses of medication, suicidal ideation with SSRIs, self-administratio n and compliance with medication along with how to safely store medication. Verbal informed consent obtained. Client agrees to return sooner if symptoms worsen or if suicidal or homicidal ideations occur. Client has the phone number to the 24-hour crisis line at [facility]. Questions addressed. Client verbalized understanding of all information and is agreeable to treatment plan. Client doing well, no treatment plan changes needed except to switch back to triazolam now that [place] approval has been issued. 10/08/2023 [place]. Discussed sleep hygiene and caffeine intake with encouragement to limit electronic devices an hour before bed and to limit caffeine after 3:00pm. Exercise benefits for mood and health discussed. Psychoeducation regarding psychiatric illness provided. Client was educated about risks and benefits of medication, alternatives to medication, off label uses of medication, suicidal ideation with SSRIs, self-administratio n and compliance with medication along with how to safely store medication. Verbal informed consent obtained. Client agrees to return sooner if symptoms worsen or if suicidal or homicidal ideations occur. Client has the phone number to the 24-hour crisis line at [facility]. Questions addressed. Client verbalized understanding of all information and is agreeable to treatment plan. Client doing well, no treatment plan changes needed. 11/05/2023 [place] issues noted. Discussed sleep hygiene and caffeine intake with encouragement to limit electronic devices an hour before bed and to limit caffeine after 3:00pm. Exercise benefits for mood and health discussed. Psychoeducation regarding psychiatric illness provided. Client was educated about risks and benefits of medication, alternatives to medication, off label uses of medication, suicidal ideation with SSRIs, self-administratio n and compliance with medication along with how to safely store medication. Verbal informed consent obtained. Client agrees to return sooner if symptoms worsen or if suicidal or homicidal ideations occur. Client has the phone number to the 24-hour crisis line at [facility]. Questions addressed. Client verbalized understanding of all information and is agreeable to treatment plan. Client doing well, no treatment plan changes needed. Plan Of Treatment No Information Insurance Providers Payer Name Payer Address Payer Phone Subscriber Number Group Number Insured Name Patient Relationship to Insured Coverage Start Date Coverage End Date MEDICAID [address] [place] [address] [id number] Moses Mtz Self - patient is the insured 1 1 MEDICARE PART A [address] [place] [address] [id number] Moses Mtz Self - patient is the insured 4 MEDICAID [address] [place] [place] [place] [address] [id number] Moses Mtz Self - patient is the insured 4 4 [facility] Att[facility] Claims Department [address] [place] [address] [id number] Moses Mtz Self - patient is the insured 1 4 [facility] [address] [place] [address] [id number] Moses Mtz Self - patient is the insured 1 4 [facility] Att[facility] Claims Department [address] [place] [address] [id number] Moses Mtz Self - patient is the insured 3 4 Medications Administered Medication Instructions Date of Administration Dosage Notes Vivitrol 11/14/2020 380 mg Pt tolerated i njection well. Pt voiced no questions or concerns. Vivitrol 12/12/2020 380 mg Patient tolera tyson injection well. Patient voiced no complaints and had no questions or concerns. Medical (General) History Medical History History ICD Code Essential hypertension I10 Alcohol related disorder F10.99 Bipolar affective disorder, remission st atus unspecified F31.9 Tobacco use disorder F17.200 Morbid (severe) obesity due to excess ca lories E66.01 Surgical History Surgery Date(Month/Year) (R) Knee 2010 (L) Knee 2011 (R) Lung for empyema 2014 Hospitalization History Reason Date(Month/Year)
[2024-07-12 19:55] VITALS: BP 85/48
--- NOTE | 2024-07-12 20:18 | ED_ITS ---
HPI - General Adult General Chief complaint: Dizziness Stated complaint: Passing Out Source: patient and family Mode of arrival: wheelchair Limitations: no limitations History of Present Illness HPI narrative: Patient presents for evaluation of syncopal episodes. He had an episode yesterday and 2 today. Family indicates the patient did not experience a fall. During one episode he was sitting down. Another episode of family member caught him. He did not experience any injuries from those events. He has an underlying history of bipolar disorder, diabetes, hypertension, hyperlipidemia, GERD and COPD. He states his last A1c was 5.5. Over the last week he has had fever, chills, cough, shortness of breath, nausea, and vomiting. He is not sure whether he has had any specific sick contacts. His family, who is with him, encouraged him to come in today. He did not wish to seek medical care. He is oriented x 3. Related Data Home Medications ?Medication ?Instructions ?Recorded ?Confirmed ?Last Taken ?Type atorvastatin 10 mg tablet 10 mg PO DAILY 07/09/21 07/09/21 Unknown History budesonide-formoterol HFA 160 2 puff inhalation Q12H 07/09/21 07/09/21 Unknown History mcg-4.5 mcg/actuation aerosol inhaler (Symbicort) fluoxetine 10 mg capsule 10 mg PO DAILY 07/09/21 07/09/21 Unknown History fluticasone furoate 200 1 inh inhalation Q24H 07/09/21 07/09/21 Unknown History mcg-vilanterol 25 mcg/dose inhalation powder (Breo Ellipta) folic acid 1 mg tablet 1 mg PO DAILY 07/09/21 07/09/21 Unknown History gabapentin 300 mg capsule 300 mg PO DAILY 07/09/21 07/09/21 Unknown History losartan 50 mg-hydrochlorothiazide 1 tablet PO DAILY 07/09/21 07/09/21 Unknown History 12.5 mg tablet metformin 500 mg tablet 500 mg PO DAILY 07/09/21 07/09/21 Unknown History quetiapine 25 mg tablet (Seroquel) 25 mg PO HS 07/09/21 07/09/21 Unknown History sitagliptin phosphate 100 mg 100 mg PO DAILY 07/09/21 07/09/21 Unknown History tablet (Januvia) topiramate 25 mg tablet 25 mg PO DAILY 07/09/21 07/09/21 Unknown History tramadol 07/09/21 Unknown History Allergies Allergy/AdvReac Type Severity Reaction Status Date / Time Penicillins Allergy Unknown Hives Verified 07/09/21 14:32 Review of Systems Review of Systems: CONSTITUTIONAL: Reports fever and chills. EYES: Denies visual changes, redness, or discharge. ENT: Denies rhinorrhea, congestion, sore throat, or otalgia. CARDIOVASCULAR: Denies chest pain, palpitations, or edema. RESPIRATORY: Reports cough. GASTROINTESTINAL: Reports nausea, vomiting, diarrhea. GENITOURINARY: Denies dysuria or hematuria. SKIN: Denies rash or itching. MUSCULOSKELETAL: Denies back pain, joint pain, or myalgia. NEUROLOGIC: Reports syncopal episodes. Denies headache, numbness, dizziness, or weakness. PSYCHIATRIC: Denies anxiety or depression. [facility] Past Medical History Medical History Hyperlipidemia COPD (chronic obstructive pulmonary disease) Diabetes Hypertension Pneumonia Empyema lung Surgical History Surgical History H/O arthroscopy of knee History of chest tube placement empyema with chest tube Family History Family History (Updated 07/12/24 @ 20:20 by ORVILLE HawkinsP, ) Mother Family history non-contributory Social History Social History Smoking packs per day: 0.5 Smoking cigarettes per day: 10.0 Smoking status: Current every day smoker Tobacco type: cigarettes Alcohol intake: unknown Substance use: unknown Living arrangements: with family Gender identity (if verbalized by the patient): Male Exam Narrative: GENERAL:well-nourished, and in no acute distress. HEAD: Normocephalic, atraumatic. EYES: PERRLA and EOMI. ENT: Nares clear, no rhinorrhea or epistaxis. Mucous membranes moist. Oropharynx without tonsillar hypertrophy exudate or other lesions. Bilateral TMs pearly jara nonbulging NECK: Supple. No adenopathy or masses. No carotid bruits or JVD CHEST: Clear to auscultation. No respiratory distress. No wheezes rales or rhonchi HEART: Rate 110. Normal rhythm per No murmur heard. Normal peripheral pulses. ABDOMEN: Soft, nontender, nondistended, normal active bowel sounds. EXTREMITIES: Normal range of motion. No edema. SKIN: Generalized pallor. Warm, dry, no rash. NEURO: No focal deficits. Alert and oriented x3. PSYCH: Normal mood and affect. Course Course Emergency Course: This is a 44-year-old male who presented for evaluation of syncopal events. Nursing staff informed me they were having problems getting patient's blood pressure in triage. I personally checked it manually and has pressure 78/42. I recommended he go to the hospital for further evaluation. He declined. I informed him that he could potentially have a life-threatening emergency. His current symptoms would be concerning for anemia and/or sepsis. Patient verbalized understanding. He was alert and oriented x3 and does not wish to pursue any more medical care. His COVID and flu here were negative. He opted to leave against medical advice. I educate him multiple times about the importance of emergency medical evaluation. He reviews. He was urged to reconsider and go to the emergency department at any time. He elected to leave against medical advice. Level of Care: Express Care Visit Vital Signs Vital signs: Vital Signs Temperature 36.1 C L 07/12/24 19:50 Pulse Rate 114 H 07/12/24 19:50 Respiratory Rate 16 07/12/24 19:50 Blood Pressure 155/102 H 07/12/24 19:50 Pulse Oximetry 100 07/12/24 19:50 Oxygen Delivery Room Air 07/12/24 19:50 Temperature 36.1 C L 07/12/24 19:50 Pulse Rate 114 H 07/12/24 19:50 Respiratory Rate 16 07/12/24 19:50 Blood Pressure 85/48 L 07/12/24 19:55 Pulse Oximetry 100 07/12/24 19:50 Oxygen Delivery Room Air 07/12/24 19:50 Medical Decision Making Vital Signs Vital Signs: Vital Signs Temperature 36.1 C L 07/12/24 19:50 Pulse Rate 114 H 07/12/24 19:50 Respiratory Rate 16 07/12/24 19:50 Blood Pressure 155/102 H 07/12/24 19:50 Pulse Oximetry 100 07/12/24 19:50 Oxygen Delivery Room Air 07/12/24 19:50 Temperature 36.1 C L 07/12/24 19:50 Pulse Rate 114 H 07/12/24 19:50 Respiratory Rate 16 07/12/24 19:50 Blood Pressure 85/48 L 07/12/24 19:55 Pulse Oximetry 100 07/12/24 19:50 Oxygen Delivery Room Air 07/12/24 19:50 Discharge Plan Discharge Clinical Impression: Left against medical advice, Hypotension Patient Disposition: Left Against Medical Advice Condition: Guarded Prognosis Patient Language: Ivorian Prescriptions: No Action quetiapine [Seroquel] 25 mg Tablet 25 mg PO HS metformin 500 mg Tablet 500 mg PO DAILY topiramate 25 mg Tablet 25 mg PO DAILY fluoxetine 10 mg Capsule 10 mg PO DAILY gabapentin 300 mg Capsule 300 mg PO DAILY losartan-hydrochlorothiazide 50-12.5 mg Tablet 1 tablet PO DAILY Breo Ellipta 200-25 mcg/dose Blister With Device 1 inh INHALATION Q24H tramadol atorvastatin 10 mg Tablet 10 mg PO DAILY folic acid 1 mg Tablet 1 mg PO DAILY Januvia 100 mg Tablet 100 mg PO DAILY budesonide-formoterol [Symbicort] 160-4.5 mcg/actuation Hfa Aerosol Inhaler 2 puff INHALATION Q12H hydrocodone-acetaminophen 7.5-325 mg tablet 1 tablet PO Q6H PRN (Reason: pain) Qty: 10 0RF Follow-up/Referrals: UNKNOWN,DOCTOR [Primary Care Provider] - Time of Disposition: 20:23
[2024-07-13 13:36] LABS: EDCOVIDSCREEN Negative (Negative); EDINFLUASCREEN Negative (Negative); EDINFLUBSCREEN Negative (Negative)
== END 2024-07-12 20:25 | disposition left against medical advice (07) ==
PROVIDERS: Emergency Provider Nurse Practitioner
DX: I95.9 Hypotension, unspecified (principal); Z20.822 Contact with and (suspected) exposure to COVID-19; F17.210 Nicotine dependence, cigarettes, uncomplicated; I10 Essential (primary) hypertension; E11.9 Type 2 diabetes mellitus without complications; Z79.84 Long term (current) use of oral hypoglycemic drugs; E78.5 Hyperlipidemia, unspecified; J44.9 Chronic obstructive pulmonary disease, unspecified; F31.9 Bipolar disorder, unspecified
CPT/HCPCS: 87426; 87804; 99212; G0463